=== PATIENT | male | born 1930 | race African-American/Black ===

== ENCOUNTER 2018-08-16 10:27 | Observation (INO) | payer MEDICARE, BC ==
[2018-08-16 12:11] LABS: #Eosinphils 0.6 thou/uL (0.0-0.7); #Lymphocytes 0.7 thou/uL (1.20-3.40); #Monocytes 0.7 thou/uL (0.11-0.59); %Basophils 0.3 % (0.0-1.0); %Eosinophils 8.4 % (0.0-10.0); %Lymphocytes 10.7 % (21.0-51.0); %Monocytes 9.6 % (0.0-10.0); %Neutrophils 71.1 % (42.0-75.0); Hemoglobin 6.8 g/dL (14.0-18.0); Mean Corpuscular Hemoglobin 31.7 pg (27.0-31.0); Mean Corpuscular Volume 96.1 fL (78.0-98.0); Mean Platelet Volume 8.2 fL (7.4-10.4); Platelet Count 329 thou/uL (130-400); RBC Distribution Width 14.5 % (11.5-14.5); Red Blood Cell (RBC) Count 2.15 mill/uL (4.70-6.10)
--- NOTE | 2018-08-16 12:16 | RAD ---
EXAM: CHEST ONE VIEW HISTORY: Clogged dialysis port. COMPARISON: 01/08/2008. FINDINGS: Cardiac silhouette is magnified by projection but does appear mildly enlarged. This is stable compare d to prior study. The pulmonary vasculature is within normal limits. Vascular calcifications are again seen in a tortuous and ectatic thoracic aorta. The lungs are clear. There is mild prominence of the right paratracheal soft tissues, this is a stable finding compared to study in 2007 and may be related to vascular structures. Degenerative changes are seen in the spine. 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 A vascular stent overlies the subcutaneous soft tissues medial left arm. IMPRESSION: No acute cardiopulmonary process.
[2018-08-16 12:47] LABS: PTT 35.8 SEC (22.9-36.1)
[2018-08-16 12:48] LABS: INR-International Normal Ratio 1.2; Prothrombin Time 15.7 SEC (12.0-14.7)
[2018-08-16 13:17] LABS: ALT (SGPT) 21 U/L (8-55); AST (SGOT) 22 U/L (5-34); Alkaline Phosphatase 67 U/L (40-150); Anion Gap 16 mmol/L (10-20); BUN (Urea Nitrogen) 62 mg/dL (8.4-25.7); Bilirubin, Total 0.4 mg/dL (0.2-1.2); Calc. Creatinine Clearance 0 mL/min (70-130); Calcium 8.8 mg/dL (7.8-10.44); Carbon Dioxide 23 mmol/L (23-31); Chloride 104 mmol/L (98-107); Estimated GFR-MDRD 7; Globulin 3.3 g/dL (2.4-3.5); Glucose 105 mg/dL (83-110); Potassium 4.4 mmol/L (3.5-5.1); Protein, Total 6.3 g/dL (5.8-8.1); Sodium 139 mmol/L (136-145)
--- NOTE | 2018-08-16 15:27 | HP ---
HISTORY OF PRESENT ILLNESS: Bebeto Wynn is an 87-year-old black male, who dialyzes Sunday, Sunday, and Sunday followed by Iker Hsieh, Nephrology has a left forearm dialysis graft placed 4 to 5 years ago in [place]. Apparently, he was referred to [place] for his dialysis access. Recently, he has had multiple interventions in the left forearm to try to salvage his left forearm looped graft, but a week ago they last intervened and now it is thrombosed and he reported for dialysis and was not able to dialyze today. Dr. Iker Hsieh sent him to the emergency room. The patient had a potassium 4.4 and sodium 139. Liver function tests were normal. Hemoglobin; however, is 6.8. He has been typed and crossed and transfusion necessary during dialysis. The patient ate a full breakfast at 8:30 this morning. Plan is to place a temporary dialysis catheter to allow dialysis and transfusion today. Next week, we will place a new cuffed tunneled hemodialysis catheter and establish a right arm fistula. He has a right wrist IV, which was removed after placement of his hemodialysis catheter. We will avoid IVs and blood draws from the right arm saving it for dialysis access. We will remove the sutures from interventional procedures left forearm access graft. The patient is anemic. He has had a previously performed laparoscopic right colon resection for cancer. He reports not having any followup. He is probably in need of a colonoscopy. He does not recall having a colonoscopy since his surgery in the late . ALLERGIES: NONE. SOCIAL HISTORY: Tobacco, none. Alcohol, none. The patient lives with a friend in [place]. PAST SURGICAL HISTORY: Right colon resection and left forearm dialysis access. 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 REVIEW OF SYSTEMS: Noncontributory. PHYSICAL EXAMINATION: VITAL SIGNS: Blood pressure 140/80, heart rate 76, and respiratory rate 18. HEAD, EARS, EYES, NOSE, AND THROAT: Unremarkable. LUNGS: Clear to auscultation. CARDIAC: Regular rate and rhythm without murmur or gallop. ABDOMEN: Soft and nontender. EXTREMITIES: Unremarkable. Palpable pulses IV right wrist, loop access graft left forearm thrombosed without thrill or bruit. Palpable radial pulses. Strong handgrip. LABORATORY DATA: Laboratories as noted. ASSESSMENT AND PLAN: 1. Thrombosed dialysis graft, left forearm, who had a full meal at 8 o'clock. We will plan placement of a right groin hemodialysis catheter during placement of the catheter. He was noted to have some obstruction on placement. I had to leave the catheter hanging out further than usual, but it seemed to function well. We will use this for temporary dialysis access. We plan placement of cuffed tunneled dialysis catheter prior right arm fistula. Ultrasound vein mapping right arm has been requested. 2. Anemia. No followup for right colon cancer. PLAN: 1. CT scan of the abdomen and pelvis especially in light of inability to pass the catheter into the inferior vena cava from the right femoral approach. 2. Suspect some kind of venous occlusion. He does not give a history of DVT. We will check a CEA level. 3. Anemia. Past history of right colon cancer. Consider a GI colonoscopy followup inpatient or outpatient. 4. Hypertension. Job ID: [id number]
--- NOTE | 2018-08-16 15:34 | ULT ---
Exam: Vein mapping for dialysis access HISTORY: End-stage renal disease. TECHNIQUE: Multiplanar grayscale and color Doppler images were obtained in a bilateral upper extremit y venous ultrasound. Spectral analysis of the Doppler waveforms of the vessels were performed. FINDINGS: The bowel internal jugular veins and subclavian veins are patent without evidence of thromb us. Right brachial artery 5.9 mm Right radial artery 3.5 mm Right ulnar artery 2.0 mm Left brachial artery 7.6 mm Left radial artery 3.0 mm Left ulnar artery 1.7 mm RIGHT CEPHALIC VEIN in millimeters 1.5 -- Shoulder 1.5 -- Upper arm 1.4 -- Mid upper arm 1.5 -- Just proximal to the elbow Thrombosed -- Just distal to the elbow Thrombosed -- Forearm Thrombosed -- Wrist RIGHT BASILIC VEIN in millimeters 3.2 -- Shoulder 3.3 -- Upper arm 2.5 -- Mid upper arm 2.0 -- Just proximal to the elbow 1.5 -- Just distal to the elbow 1.2 -- Forearm 1 -- Wrist There is a thrombosed left cephalic stent. Left basilic vein is not visualized. There is excluded loop graft from the left brachial artery to cephalic vein. IMPRESSION: 1. Vein mapping for dialysis access as above. 2. Occluded loop graft from the left brachial artery to the left cephalic vein with a thrombosed left cephalic venous stent.
[2018-08-16 15:35] LABS: HBSAg Index 0.55 S/CO (0-0.99); Hep B Surf Ag Non-Reactive S/CO (NonReactive)
[2018-08-16] MEDS ORDERED: Senokot S 8.6-50 MG TAB PO PRN (18:27)
[2018-08-16] MEDS ORDERED: Bisacodyl 10 MG SUPP PR PRN (18:27)
[2018-08-16] MEDS ORDERED: Acetaminophen 325 MG TAB PO PRN (18:27)
[2018-08-16] MEDS ORDERED: Calcium Carbonate 500 MG ChewTAB PO PRN (18:27)
[2018-08-16] MEDS ORDERED: hydrALAZINE 20 MG/ML VIAL SLOW IVP PRN (18:27)
--- NOTE | 2018-08-16 18:45 | HP ---
PRIMARY CARE PHYSICIAN: None. PRIMARY MANAGER OF COMPENSATION: Iker Hsieh MD CHIEF COMPLAINT: Dialysis catheter malfunction. HISTORY OF PRESENT ILLNESS: The patient is an 87-year-old male with end-stage renal disease, on hemodialysis, presented to the emergency room from the dialysis center with above complaints. The patient has a long history of end-stage renal disease, on dialysis. His usual dialysis on Sunday, Sunday, and Sunday. He had issues with dialysis earlier this week on Sunday and Sunday. He was seen by Dr. Carrillo as outpatient. Today, he had the same issue for which Dr. Iker Hsieh referred him to the emergency room. He also had discomfort over the fistula site. He denies any fever or chills. PAST MEDICAL HISTORY: 1. Hypertension. 2. End-stage renal disease, on hemodialysis. 3. Glaucoma. PAST SURGICAL HISTORY: 1. Left upper extremity dialysis access. 2. Right colon resection for colon cancer. ALLERGIES: NO KNOWN DRUG ALLERGIES. CURRENT HOME MEDICATIONS: The patient is unable to recall any of his home medications. SOCIAL HISTORY: The patient currently lives at home with his family. No smoking, alcohol, or drugs. FAMILY HISTORY: Negative for premature coronary artery disease. Surrogate decision maker; the patient makes his own decision with the help of his family. He is full code. REVIEW OF SYSTEMS: All other review of systems was reviewed and were found negative. PHYSICAL EXAMINATION: VITAL SIGNS: Temperature 98.2, respirations 18, pulse 72, blood pressure 102/66, and O2 saturation 98% on room air. GENERAL: An 87-year-old male, in no apparent distress, undergoing hemodialysis. HEENT: Head; atraumatic and normocephalic. Sclerae anicteric. Moist mucous membranes. No oral lesion. NECK: Supple. No JVD appreciated. No carotid bruit. LUNGS: Clear to auscultation bilaterally. No wheezing, rales, or rhonchi. HEART: S1 and S2 present. Regular rate and rhythm. No rubs or gallops appreciated. ABDOMEN: Soft, nontender. Bowel sounds present. EXTREMITIES: No edema or calf tenderness in lower extremity. There is palpable thrill over the left upper extremity dialysis access. NEUROLOGIC: Grossly nonfocal. Moves all 4 extremities. PSYCHIATRY: Alert, awake, and oriented x3. SKIN: Warm and dry. LYMPH NODES: No palpable lymph nodes in the neck. LABORATORY FINDINGS: Hemoglobin 6.8, hematocrit 20.7. PT 15.7, INR 1.2. BUN 62, creatinine 8.47, and potassium 4.4. Albumin 3.0. IMAGING STUDIES: Chest x-ray by my review was negative for infiltrate. EKG by my review showed sinus rhythm. IMPRESSION: 1. Dialysis access malfunction. 2. Anemia secondary to renal insufficiency. 3. Mild protein-calorie malnutrition. 4. End-stage renal disease, on hemodialysis. 5. Hypertension. PLAN: The patient will be monitored on the medical floor. He underwent dialysis catheter placement in this right groin today. He also received 2 units of PRBC with dialysis. He will undergo a cuffed dialysis catheter placement prior to right arm fistula. Ultrasound vein mapping of right arm has been done, report pending at this time. His CEA is in normal range. His anemia is probably secondary to renal insufficiency. He also has a CT scan of the abdomen and pelvis ordered due to inability to pass the catheter into the inferior vena cava from the right femoral approach. Home medications seems to be verified. The patient is unable to recall any of his home medications. Plan was discussed with the patient and the family at the bedside, they stated understanding. Job ID: [id number]
--- NOTE | 2018-08-16 19:13 | OP ---
DATE OF PROCEDURE: 08/16/2018 PREOPERATIVE DIAGNOSIS: Thrombosed access graft, left forearm. POSTOPERATIVE DIAGNOSIS: Thrombosed access graft, left forearm. PROCEDURE PERFORMED: Placement of right femoral vein hemodialysis catheter, Trialysis. Note: The vein would not thread in as far as usual and there seemed to be obstruction in the inferior vena cava. The patient has had a history of a right colon resection laparoscopically, that was performed many years ago, and reports not having any colonoscopic. Followup CAT scan has been ordered. ANESTHESIA: 1% Xylocaine. DESCRIPTION OF PROCEDURE: With the patient at bedside in the emergency room, right groin was clipped of hair, prepared with ChloraPrep, and draped in routine fashion. Local anesthetic 1% Xylocaine was infiltrated in the skin and subcutaneous tissue about the operative site. Trocar catheter cannulated in the femoral vein, J-wire threaded, trocar catheter removed. Skin entry site enlarged sharply. Dilator was placed and removed, and distal port of the Trialysis catheter was placed over the J-wire into the femoral vein. We would not thread as far as it should and about 6 cm was left hanging out and the catheter was secured with 2 interrupted sutures of 3-0 nylon, had good aspiration and flushed well. Sterile dressings were applied. Each port aspirated blood and flushed with heparinized saline solution. Sterile dressings applied. Job ID: [id number]
[2018-08-16 20:06] VITALS: BMI 21.4
[2018-08-17 05:44] LABS: #Basophils 0.1 thou/uL (0.0-0.2); #Eosinphils 0.5 thou/uL (0.0-0.7); #Lymphocytes 0.7 thou/uL (1.20-3.40); #Monocytes 0.6 thou/uL (0.11-0.59); #Neutrophils 4.2 thou/uL (1.40-6.50); %Basophils 1.2 % (0.0-1.0); %Eosinophils 8.5 % (0.0-10.0); %Lymphocytes 10.8 % (21.0-51.0); %Monocytes 10.3 % (0.0-10.0); %Neutrophils 69.2 % (42.0-75.0); Hemoglobin 8.3 g/dL (14.0-18.0); Mean Corpuscular HGB CONC 33.4 g/dL (32.0-36.0); Mean Corpuscular Hemoglobin 31.5 pg (27.0-31.0); Mean Corpuscular Volume 94.4 fL (78.0-98.0); Mean Platelet Volume 8.1 fL (7.4-10.4); Platelet Count 311 thou/uL (130-400); RBC Distribution Width 14.1 % (11.5-14.5); Red Blood Cell (RBC) Count 2.63 mill/uL (4.70-6.10); White Blood Cell (WBC) Count 6.1 thou/uL (4.8-10.8)
[2018-08-17] MEDS ORDERED: Prevnar 13-Val Conj/PF 0.5 ML SYRINGE IM ONE (09:00)
[2018-08-17] MEDS ORDERED: Heparin 1,000 UNITS/ML VIAL ONE ×2 (09:54→09:55)
[2018-08-17] MEDS ORDERED: CEFAZOLIN 2 GM in Premix Bag 1 BAG IVPB SCH (13:00)
--- NOTE | 2018-08-17 15:01 | CT ---
CT Abdomen Pelvis W Con History: [Colon cancer.] Comparison: Abdomen CT 2008 Findings: Calcified right infrahilar lymph nodes. Small pericardial fluid. Aortic contour is nonaneurysmal. Extensive diverticular disease throughout the sigmoid colon without active current inflammation. There is intrahepatic biliary dilatation. No significant extra hepatic biliary dilatation. Multiple calcific as well as the spleen. No retroperitoneal periaortic adenopathy. There is severe left hydroureteronephrosis. This is similar to the comparison examination. Moderate t o severe right-sided hydroureteronephrosis, also similar to the comparison examination. There is a right femoral venous catheter in place with reflux contrast within the femoral vein and ob turator vessels. This could reflect thrombus within the IVC although not visualized. Along the left gluteal fold is a peripherally enhancing soft tissue mass which may reflect abscess from fistula vers us sebaceous cyst. Large anterior osteophytes lumbar spine. No suspicious osteolytic or osteoblastic lesion. Impression: 1. Extensive intrahepatic biliary dilatation. ERCP recommended. 2. Severe bilateral hydroureteronephrosis similar to the comparison examination may be from ectopic i nsertion of the ureters. 3. Polycystic kidney disease. 4. Soft tissue peripheral enhancing mass on the left gluteal fold new from the comparison 2008 examin ation may reflect abscess from perirectal fistula versus complicated sebaceous cyst. Clinical correlation advised. 5. Reflux contrast on the right femoral venous catheter. Proximal IVC thrombosis is a possibility.
--- NOTE | 2018-08-17 15:28 | PDOC.PN ---
- Subjective Encounter Start Date: 08/17/18 (f/u ESRD) Encounter Start Time: 15:27 Subjective: pt without complaints. He did receive dialysis and 2 units prbc's. Denies -: any cp/n/v/abd pain or other concerns - Objective Resuscitation Status - Order Detail: 08/16/18 18:27 Resuscitation Status Routine Resuscitation Status: FULL: Full Resuscitation Vital Signs & Weight: Vital Signs (12 hours) Temp Pulse Resp BP Pulse Ox 08/17/18 07:40 98.4 F 73 20 129/74 96 08/17/18 04:00 98.5 F 69 20 121/65 98 Weight Weight 172 lb Result Diagrams: 08/17/18 05:30 08/16/18 12:07 Additional Labs: Accuchecks 08/17/18 11:32 POC Glucose 90 Phys Exam - Physical Examination Constitutional: NAD Respiratory: no wheezing, no rales, no rhonchi Cardiovascular: RRR, no significant murmur Gastrointestinal: soft, non-tender, positive bowel sounds Musculoskeletal: no edema Dx/Plan (1) ESRD (end stage renal disease) on dialysis Code(s): N18.6 - END STAGE RENAL DISEASE; Z99.2 - DEPENDENCE ON RENAL DIALYSIS Status: Chronic (2) Anemia Code(s): D64.9 - ANEMIA, UNSPECIFIED Status: Chronic Qualifiers: Chronic kidney disease stage: on chronic dialysis (3) Malnutrition Code(s): E46 - UNSPECIFIED PROTEIN-CALORIE MALNUTRITION Status: Chronic Qualifiers: Malnutrition type: protein-calorie malnutrition (4) Hypertension Code(s): I10 - ESSENTIAL (PRIMARY) HYPERTENSION Status: Chronic (5) Glaucoma Code(s): H40.9 - UNSPECIFIED GLAUCOMA Status: Acute Qualifiers: Glaucoma type: unspecified Laterality: bilateral Qualified Code(s): H40.9 - Unspecified glaucoma - Plan * ESRD on hemodialysis - appreciate Dr. Hudson consulting and management of the dialysis access malfunction. * Glaucoma - continue current eye drops * Home meds unknown and pt's pharmacy is closed - [facility] in [place] - will need a list. Pt reports he is only on a multivitamin and low dose aspirin. The goal is to confirm and his friend in the room does not know. * Abnormal CT scan -extensive intrahepatic biliary dilatation - consult to GI. * * dvt prophy - scd's * gi prophy - not indicated * code status - full * * Pt is currently on observation status - not safe for discharge to home, as he requires a more definitive dialysis catheter in addition to evaluation for the marked CT abnormality. * RN messaged that pt desires to establish a MPOA - Pall Care consult placed.
[2018-08-17] MEDS: Dorzolamide HCl 2% Ophth Soln 10 ml Bottle EA EYE SCH (20:16)
[2018-08-17] MEDS: Latanoprost 0.005% Ophth Soln 2.5 ml Bottle EA EYE SCH (20:16)
[2018-08-17] MEDS: Brimonidine Tartrate 0.2% Ophth Soln 5 ml Bottle EA EYE SCH (20:16)
--- NOTE | 2018-08-17 23:52 | CON ---
DATE OF CONSULTATION: 08/17/2018 REASON FOR CONSULTATION: Abnormal CT scan of the abdomen showing dilation of bile ducts. HISTORY OF PRESENT ILLNESS: Mr. Bebeto Wynn is an 87-year-old male with chronic kidney disease. He was hospitalized because of fistula failure and possibly having a revision of fistula or placing a tunneled-cuffed dialysis catheter. He was seen by Dr. Hudson and an attempt was made to place a catheter into the femoral artery, which was unsuccessful. encountered. Because of the above reasons, abdominal CAT scan was ordered. Abdominal CAT scan showed dilation of the intrahepatic ducts and also polycystic kidney. There is also mention of hydronephrosis on both sides. Interestingly, the patient has no specific GI symptoms. He has good appetite. No abdominal pain, no nausea, no vomiting. Also, liver function tests are not elevated. The patient has no prior history of liver disease. I reviewed the CAT scan with Dr. Loc Rand, radiologist. Again, the CAT scan findings shows dilation of intrahepatic ducts and mild dilation of the CBD. No pancreatic mass seen. The patient had a CAT scan, I believe in 2007 and there is some mention of mild dilation of the intrahepatic duct. However, the ducts looked normal, lot more prominent this time. The patient cannot tell me why it was done about 11 years ago. At the present time, he has no abdominal pain, he has good appetite, and is eating well. His bowel movements are regular. There is no specific GI symptoms except for the abnormal dilation of the biliary tree. PAST MEDICAL HISTORY: MEDICAL ILLNESSES: 1. Chronic kidney disease, on dialysis 3 times a week. 2. Polycystic kidneys. 3. Hypertension. 4. Glaucoma. SURGERIES: 1. AV fistula placement in the past. 2. Right colon resection for colon cancer. The patient apparently had seen Dr. Zeyad Yarbrough in April 2018 and had a negative colonoscopy except for 2 small polyps. He also had an EGD at that time. ALLERGIES: NONE. SOCIAL HISTORY: Does not smoke or drink alcohol. Lives with family. In fact, his son was in the room when I saw the patient. FAMILY HISTORY: No family history of cancer, premature coronary artery disease, or kidney disease. MEDICATIONS: List reviewed. REVIEW OF SYSTEMS: 10-point system reviewed. HEAD: No chronic headache. No dizziness. EYES: No impaired vision or diplopia. ENT: No relevant symptoms. NECK: No stiffness or pain. LUNGS: No chronic coughing, hemoptysis, or dyspnea. CARDIOVASCULAR SYSTEM: No chest pain. No dyspnea, orthopnea, or PND. GI: No abdominal pain, nausea, or vomiting. Bowel movements are regular. He had a recent colonoscopy, I believe in April [address] Yarbrough and had 2 polyps removed. GENITOURINARY: Not known. MUSCULOSKELETAL: Not known. NEUROENDOCRINE: Not known. PSYCHIATRY: Not known. PHYSICAL EXAMINATION: GENERAL: The patient appears very comfortable, in no distress. He is awake, alert, and communicative. He is a good historian. Repeated questioning failed to elicit any history of any abdominal pain, nausea, or vomiting. VITAL SIGNS: Stable. Afebrile. Pulse is 73 and blood pressure EYE: Conjunctivae clear. NECK: Supple. No adenitis or thyromegaly noted. CARDIOVASCULAR SYSTEM: First and second heart sounds heard. LUNGS: Clear to auscultation. ABDOMEN: Soft. Abdomen is not distended. Abdomen is nontender. No organomegaly or masses. EXTREMITIES: Reveal no edema. LABORATORY DATA: Showed anemia on admission for which he has been transfused. The CBC; WBC 7000, hemoglobin 6.8, hematocrit 20.7, platelet counts are 329,000, polys are 71, lymphocytes 10. Today, hemoglobin is 8.3, hematocrit 24.9. His serum chemistry shows normal LFTs completely. The bilirubin level is 0.4, AST 22, ALT 21, alkaline phosphatase 67, albumin 3. BUN is 62, creatinine is 8.47. He had abdominal CAT scan done which shows bilateral polycystic kidney and hydronephrosis. There is also dilation of the intrahepatic duct and slight dilation of the common bile duct. No pancreatic mass seen. He has had minimal findings of dilation of ducts in the report 11 years ago. CLINICAL IMPRESSION: 1. Abnormally dilated common bile duct and also intrahepatic. The intrahepatic appears more dilated. I feel this is a chronic finding and he has really no gastrointestinal symptoms at all. 2. Failed arteriovenous fistula, needs dialysis access. 3. Chronic kidney disease. 4. Hypertension. 5. Glaucoma. 6. History of previous colon cancer surgery with recent followup colonoscopy in April 2018. RECOMMENDATION: I would probably recommend either an MRCP and/or sonogram. If he has no symptoms and appears to be chronic findings, I will probably electively do further workup. In the meantime, his urgent problem seems to be lack of dialysis access, which needs to be addressed. He has been seen by Dr. Zeyad Yarbrough and I will ask the [facility] to assume care from Sunday. Job ID: [id number]
--- NOTE | 2018-08-18 07:10 | ULT ---
GALLBLADDER ULTRASOUND: Date: 08/18/18 INDICATION: Biliary ductal dilatation. Reference made to CT exam previous day. FINDINGS: There is evidence of intrahepatic biliary ductal dilatation, as well as hepatic cyst formation. Kimberley lithiasis is present without sonographic evidence of cholecystitis. Common duct measures 7 mm, which is within normal limits of size for patient's age. Incidental note of polycystic kidney of the right kidney. Barrios's sign reported as negative by practice performance manager. IMPRESSION: 1. Intrahepatic biliary ductal dilatation. There is cholelithiasis. As previously recommended, ERCP may be obtained to further characterize. 2. Polycystic kidney on the right. There is partial visualization of hydroureteronephrosis, as well. POS: IRAK
[2018-08-18] MEDS ORDERED: Ondansetron PF 4 MG/2 ML Vial IVP PRN (07:35)
[2018-08-18] MEDS ORDERED: Sodium Chloride 0.65% Nasal 44 ML BOT EA NARE PRN (07:35)
[2018-08-18] MEDS ORDERED: Loperamide HCl 2 MG CAP PO PRN (07:35)
[2018-08-18] MEDS ORDERED: HYDROcodone/Acetaminophen 5/325 mg Tablet PO PRN (07:35)
[2018-08-18] MEDS ORDERED: Zolpidem Tartrate 5 MG TAB PO PRN (07:35)
[2018-08-18] MEDS ORDERED: Diabetic Tussin 200 MG/10 ML UDCUP PO PRN (07:35)
[2018-08-18] MEDS ORDERED: Ondansetron ODT 4 MG TAB PO PRN (07:35)
[2018-08-18] MEDS ORDERED: Artificial Tears 18 DROP/0.9 ML EA EYE PRN (07:35)
[2018-08-18] MEDS ORDERED: Loratadine 10 MG TAB PO PRN (07:35)
[2018-08-18] MEDS ORDERED: Cepastat Lozenges 1 LOZ PO PRN (07:35)
[2018-08-18] MEDS: Dorzolamide HCl 2% Ophth Soln 10 ml Bottle EA EYE SCH ×2 (08:33→21:19)
[2018-08-18] MEDS: Folic Acid/Vit B Comp W-C PO SCH (08:35)
[2018-08-18] MEDS: Brimonidine Tartrate 0.2% Ophth Soln 5 ml Bottle EA EYE SCH ×2 (08:40→21:19)
--- NOTE | 2018-08-18 12:21 | PDOC.PN ---
- Subjective Encounter Start Date: 08/18/18 Encounter Start Time: 09:15 -: old records requested/rev Patient seen and examined. No new complaints. No overnight events - Objective Resuscitation Status - Order Detail: 08/16/18 18:27 Resuscitation Status Routine Resuscitation Status: FULL: Full Resuscitation MAR Reviewed: Yes Vital Signs & Weight: Vital Signs (12 hours) Temp Pulse Resp BP Pulse Ox 08/18/18 08:17 98.4 F 76 16 111/65 98 08/18/18 05:25 98.7 F 64 18 133/65 94 L Weight Weight 172 lb Result Diagrams: 08/17/18 05:30 08/16/18 12:07 Additional Labs: Accuchecks 08/17/18 08/17/18 20:44 16:21 POC Glucose 114 H 99 Phys Exam - Physical Examination Constitutional: NAD HEENT: PERRLA, moist MMs, sclera anicteric Neck: no JVD, supple Respiratory: no wheezing, no rales, no rhonchi Cardiovascular: RRR, no significant murmur, no rub Gastrointestinal: soft, non-tender, no distention, positive bowel sounds Musculoskeletal: no edema, pulses present thrombosed avf Neurological: non-focal, normal sensation, moves all 4 limbs femoral HD catheter+ Lymphatic: no nodes Psychiatric: normal affect, A&O x 3 Skin: no rash, normal turgor Dx/Plan (1) AV fistula thrombosis Code(s): T82.868A - THROMBOSIS DUE TO VASCULAR PROSTH DEV/GRFT, INIT Status: Acute (2) Anemia of renal disease Code(s): N18.9 - CHRONIC KIDNEY DISEASE, UNSPECIFIED; D63.1 - ANEMIA IN CHRONIC KIDNEY DISEASE Status: Chronic (3) Cholelithiases Code(s): K80.20 - CALCULUS OF GALLBLADDER W/O CHOLECYSTITIS W/O OBSTRUCTION Status: Chronic (4) ESRD (end stage renal disease) on dialysis Code(s): N18.6 - END STAGE RENAL DISEASE; Z99.2 - DEPENDENCE ON RENAL DIALYSIS Status: Chronic (5) Glaucoma Code(s): H40.9 - UNSPECIFIED GLAUCOMA Status: Chronic Qualifiers: Glaucoma type: unspecified Laterality: bilateral Qualified Code(s): H40.9 - Unspecified glaucoma (6) Hydronephrosis Code(s): N13.30 - UNSPECIFIED HYDRONEPHROSIS Status: Chronic (7) Hypertension Code(s): I10 - ESSENTIAL (PRIMARY) HYPERTENSION Status: Chronic (8) Intrahepatic bile duct dilation Code(s): K83.8 - OTHER SPECIFIED DISEASES OF BILIARY TRACT Status: Chronic - Plan cont current plan of care, plan discussed w/ family * continue HD as per nephrology * updated plan to family * medication reviewed as below * symptomatic treatment * add nephrovite * pt will need permanant HD access. Review of Systems - Review of Systems ENT: negative: Ear Pain, Ear Discharge, Nose Pain, Nose Discharge, Nose Congestion, Mouth Pain, Mouth Swelling, Throat Pain, Throat Swelling, Other Respiratory: negative: Cough, Dry, Shortness of Breath, Hemoptysis, SOB with Excertion, Pleuritic Pain, Sputum, Wheezing Cardiovascular: negative: chest pain, palpitations, orthopnea, paroxysmal nocturnal dyspnea, edema, light headedness, other Gastrointestinal: negative: Nausea, Vomiting, Abdominal Pain, Diarrhea, Constipation, Melena, Hematochezia, Other Genitourinary: negative: Dysuria, Frequency, Incontinence, Hematuria, Retention , Other Musculoskeletal: negative: Neck Pain, Shoulder Pain, Arm Pain, Back Pain, Hand Pain, Leg Pain, Foot Pain, Other - Medications/Allergies Allergies/Adverse Reactions: Allergies Allergy/AdvReac Type Severity Reaction Status Date / Time No Known Drug Allergies Allergy Verified 08/16/18 19:31 Medications: Current Medications Acetaminophen (Tylenol) 650 mg PO Q4H PRN PRN Reason: Headache/Fever/Mild Pain (1-3) Hydrocodone Bitart/Acetaminophen ([place] 5/325) 1 tab PO Q4H PRN PRN Reason: Moderate Pain (4-6) Artificial Tears (Tears Naturale) 2 drop EA EYE PRN PRN PRN Reason: Dry Eyes Bisacodyl (Dulcolax) 10 mg MA DAILYPRN PRN PRN Reason: Constipation Brimonidine Tartrate (Alphagan 0.2% Ophth Soln) 0 drop EA EYE BID [facility] Last Admin: 08/18/18 08:40 Dose: 1 drop Calcium Carbonate (Tums) 1,000 mg PO Q4H PRN PRN Reason: Heartburn or Indigestion Dorzolamide HCl (Trusopt 2% Ophth Soln) 0 drop EA EYE BID [facility] Last Admin: 08/18/18 08:33 Dose: 1 drop Guaifenesin (Robitussin Sf) 200 mg PO Q4H PRN PRN Reason: Cough Hydralazine HCl (Apresoline) 10 mg SLOW IVP Q4H PRN PRN Reason: SBP Greater Than 180 Cefazolin Sodium/Dextrose 2 gm (/ Device) 50 mls @ 100 mls/hr IVPB ONCALL-OR KAITY Latanoprost (Xalatan 0.005% Ophth Soln) 0 drop EA EYE HS [facility] Last Admin: 08/17/18 20:16 Dose: Not Given Loperamide HCl (Imodium) 2 mg PO PRN PRN PRN Reason: Diarrhea/Loose Stools Loratadine (Claritin) 10 mg PO DAILYPRN PRN PRN Reason: Sinus Symptoms Ondansetron HCl (Zofran Odt) 4 mg PO Q6H PRN PRN Reason: Nausea/Vomiting Ondansetron HCl (Zofran) 4 mg IVP Q6H PRN PRN Reason: Nausea/Vomiting Senna/Docusate Sodium (Senokot S) 2 tab PO BID PRN PRN Reason: Constipation Sodium Chloride (Flush - Normal Saline) 10 ml IVF PRN PRN PRN Reason: Saline Flush Sodium Chloride ([place] Nasal [place] 0.65%) 0 ml EA NARE QIDPRN PRN PRN Reason: Nasal Congestion Throat Lozenges (Cepastat Lozenges) 1 karthik PO Q2H PRN PRN Reason: Sore Throat Vitamin B Complex/Vit C/Folic Acid (Nephro-Reese Tablet) 1 tab PO DAILY [facility] Last Admin: 08/18/18 08:35 Dose: 1 tab Zolpidem Tartrate (Ambien) 5 mg PO HSPRN PRN PRN Reason: Insomnia
[2018-08-18] MEDS ORDERED: Heparin 10,000 UNITS/ 10 ML VIAL ONE (15:00)
[2018-08-18] MEDS ORDERED: Vancomycin HCl 1 GM in Premix Bag 1 BAG IVPB SCH (15:30)
--- NOTE | 2018-08-18 15:48 | PRG ---
DATE OF SERVICE: 08/18/2018 SUBJECTIVE: Mr. Wynn is doing well today. He is afebrile. He has a temporary dialysis catheter. He has had mild dilatation of the intrahepatic ducts on CAT scan, this was seen on this CAT scan. Liver function tests are normal. Abdominal ultrasound was ordered, revealing polycystic kidney on the right. The patient does have cholelithiasis. Common duct is 7 mm, within normal range. The patient is asymptomatic from a biliary standpoint. Ultrasound vein mapping was obtained on 08/16/2018, revealing poor veins on the right, making it very likely that he will need a prosthetic graft, but we will plan exploration of the right arm and placement of a prosthetic graft if necessary as well as placement of hemodialysis catheter and as well as excising left. He understands risks and benefits, consents. Job ID: [id number]
[2018-08-18] MEDS: Latanoprost 0.005% Ophth Soln 2.5 ml Bottle EA EYE SCH (21:19)
[2018-08-19 04:28] LABS: #Eosinphils 0.4 thou/uL (0.0-0.7); #Lymphocytes 0.6 thou/uL (1.20-3.40); #Monocytes 0.7 thou/uL (0.11-0.59); #Neutrophils 4.1 thou/uL (1.40-6.50); %Basophils 0.8 % (0.0-1.0); %Lymphocytes 10.6 % (21.0-51.0); %Monocytes 11.3 % (0.0-10.0); %Neutrophils 70.3 % (42.0-75.0); Hemoglobin 8.3 g/dL (14.0-18.0); Mean Corpuscular HGB CONC 33.2 g/dL (32.0-36.0); Mean Corpuscular Hemoglobin 31.7 pg (27.0-31.0); Mean Corpuscular Volume 95.5 fL (78.0-98.0); Platelet Count 311 thou/uL (130-400); RBC Distribution Width 14.3 % (11.5-14.5); Red Blood Cell (RBC) Count 2.62 mill/uL (4.70-6.10); White Blood Cell (WBC) Count 5.9 thou/uL (4.8-10.8)
[2018-08-19 04:48] LABS: Anion Gap 14 mmol/L (10-20); BUN (Urea Nitrogen) 39 mg/dL (8.4-25.7); Calc. Creatinine Clearance 10 mL/min (70-130); Calcium 8.7 mg/dL (7.8-10.44); Carbon Dioxide 27 mmol/L (23-31); Chloride 102 mmol/L (98-107); Estimated GFR-MDRD 11; Glucose 97 mg/dL (83-110); Phosphorus 3.3 mg/dL (2.3-4.7); Potassium 3.7 mmol/L (3.5-5.1); Sodium 139 mmol/L (136-145)
[2018-08-19] MEDS ORDERED: EPOETIN ALFA-EPBX (ESRD) 3,000 UNIT/ML VIAL SC SCH (09:00)
[2018-08-19] MEDS: Brimonidine Tartrate 0.2% Ophth Soln 5 ml Bottle EA EYE SCH ×2 (09:50→21:43)
[2018-08-19] MEDS: Dorzolamide HCl 2% Ophth Soln 10 ml Bottle EA EYE SCH ×2 (09:52→21:42)
[2018-08-19] MEDS: Folic Acid/Vit B Comp W-C PO SCH (09:53)
--- NOTE | 2018-08-19 11:21 | PRG ---
DATE OF SERVICE: 08/19/2018 REASON FOR CONSULTATION: Abnormal CT scan of the abdomen showing dilation of the bile duct. SUBJECTIVE: The patient did well overnight with no acute events or problems. Today, he states that he is doing well and is on tap for revision of his arteriovenous fistula of the upper extremity. Currently, he denies any nausea, vomiting, fevers, chills, abdominal pain, or GI bleeding. OBJECTIVE: VITAL SIGNS: Temperature 98.7, pulse 65, blood pressure 93/56, respiratory rate 20, saturating 98% on room air. GENERAL: The patient is lying in bed, in no acute distress. Alert and oriented x4. CARDIOVASCULAR: Regular rate and rhythm. RESPIRATORY: Clear to auscultation bilaterally. ABDOMEN: Normoactive bowel sounds. Soft, nontender, nondistended. EXTREMITIES: No cyanosis, clubbing, or edema. LABORATORY DATA: CBC with a white blood cell count of 5.9, hemoglobin 8.3, hematocrit 25.1, platelets 311. INR 1.2. Chemistry with a sodium of 139, potassium 3.7, chloride 102, CO2 of 27, BUN 39, creatinine 6.07, glucose 97, AST 22, ALT 21, alkaline phosphatase 67, total bilirubin 0.4. CEA 1.34. IMAGING DATA: Right upper quadrant ultrasound was obtained on August 18, 2018 that showed common bile duct mildly dilated at 7 mm as well as significant intrahepatic ductal dilatation with possible cystic dilation of the intrahepatic tree. There was also a number of hepatic cysts within the liver primarily around the biliary tree itself, but did have 1 or 2 parenchymal cysts as well. ASSESSMENT AND PLAN: The patient is an 88-year-old male with past medical history of glaucoma, hypertension, polycystic kidney disease, and chronic kidney disease/end-stage renal disease on hemodialysis presenting with malfunctioning dialysis access and abnormal imaging of the biliary system. Abnormal imaging of the biliary system. The patient was initially admitted to the hospital for malfunctioning dialysis access and he is currently undergoing evaluation for revision. However, during this admission, secondary to placement of a temporary catheter in the femoral artery, he was noted to have cystic dilation of the intrahepatic tree as well as mild dilation of the common bile duct to 7 mm in size on CT. In comparison with the CT scan from 2008, this appears to be a relatively new finding with no evidence of abnormalities within the biliary tree noted on the prior CT scan in 2008. At this point, the differential could include polycystic kidney disease, primary sclerosing cholangitis, primary biliary cholangitis (possible overlap syndrome), autoimmune pancreatitis with cyst formation and/or IgG4 disease, or cholangiocarcinoma ( much less likely given normal alkaline phosphatase). With his relatively normal liver enzymes and asymptomatic nature at this time, these cystic dilations of the biliary tree maybe more related to his adult polycystic kidney disease with hepatic cysts common in this particular condition, although with APCKD it does not necessarily affect the biliary tree. In any case, this seems to be an incidental finding that may need surveillance. RECOMMENDATIONS: 1. Would obtain both antimitochondrial antibody and IgG subtype 4 for a possible primary biliary cholangitis and autoimmune pancreatitis respectively. 2. Would continue to trend his LFTs while inpatient. 3. After discussion with the patient and family at bedside, I would recommend repeat imaging of the liver in 3 months with MRCP, and if showing worsening findings and/or more significant dilatation, would proceed with either liver biopsy or ERCP at that time. 4. Given the largely incidental finding on this admission and no plans for endoscopy at this time, the patient can be discharged from a GI standpoint with followup in the GI Clinic in 1 to 2 months or sooner if displaying symptoms. Please call with any additional questions. Job ID: [id number] KENDRICK
[2018-08-19] MEDS ORDERED: Glycopyrrolate 0.2 MG/ML 5 ML SYRINGE ONE (11:49)
[2018-08-19] MEDS ORDERED: Ondansetron PF 4 MG/2 ML Vial ONE (11:49)
[2018-08-19] MEDS ORDERED: Rocuronium Bromide 10 MG/ML (10ML VIAL) ONE (11:49)
[2018-08-19] MEDS ORDERED: Lidocaine 2% PF 5 ML VIAL ONE ×2 (11:49→16:26)
[2018-08-19] MEDS ORDERED: Phenylephrine HCL 10 MG/ML VIAL ONE (11:49)
[2018-08-19] MEDS ORDERED: Fentanyl 100 MCG/2 ML VIAL ONE (15:42)
[2018-08-19] MEDS ORDERED: Bupivacaine 0.25% HCL 30 ML VIAL ONE (15:48)
[2018-08-19] MEDS ORDERED: Bupivacaine HCl 0.5%/Epinephrine 1:200,000/PF 30 ml Vial ONE (15:49)
[2018-08-19] MEDS ORDERED: Heparin 10,000 UNITS/1 ML VIAL ONE (16:26)
[2018-08-19] MEDS ORDERED: Sodium Chloride 0.9% 20 ML ONE (16:32)
[2018-08-19] MEDS ORDERED: Sodium Chloride For Inhalation 0.9% 3 ML NEB ONE ×2 (17:46→17:54)
[2018-08-19] MEDS ORDERED: Dexamethasone 4 mg/ml Vial ONE (17:57)
[2018-08-19] MEDS ORDERED: Ondansetron HCl/PF 4 MG/2 ML Vial IVP PRN (18:02)
[2018-08-19] MEDS ORDERED: Promethazine HCl 25 MG/ML VIAL IM PRN (18:02)
--- NOTE | 2018-08-19 18:23 | RAD ---
EXAM: Single view of the chest HISTORY: Status post central line placement COMPARISON: 08/16/2018 FINDINGS: Single view of the chest shows a normal sized cardiomediastinal silhouette. A left IJ dial ysis catheter seen with its tip in the superior vena cava. No pneumothorax is seen. There is no evidence of consolidation, mass, or pleural effusion. A stent is seen in the patient's left arm. IMPRESSION: Status post central line placement without evidence of complication.
[2018-08-19] MEDS: Latanoprost 0.005% Ophth Soln 2.5 ml Bottle EA EYE SCH (21:43)
--- NOTE | 2018-08-19 22:50 | OP ---
DATE OF PROCEDURE: 08/19/2018 PREOPERATIVE DIAGNOSES: Thrombosed left forearm loop graft with stents, multiple, left upper arm and left buttock sebaceous cyst, occluded outflow, right internal jugular vein, poor veins of venous ultrasound, right arm. PROCEDURES PERFORMED: Left IJ cuffed tunneled hemodialysis catheter, AngioDynamics, pre-curved, fluoroscopy and ultrasound used for placement. Excision of left buttock sebaceous cyst, 5 cm incision, layered closure. ANESTHESIA: General anesthesia, local 0.5% Marcaine with epinephrine 30 mL mixed with 2% Xylocaine 10 mL, total volume used. Note in the future outpatient surgery, the patient is planned to have a right arm fistula or dialysis graft. DESCRIPTION OF PROCEDURE: The patient was taken to the operating room where under general anesthesia, left neck and chest were prepared with ChloraPrep and draped in routine fashion. Local anesthetic was infiltrated in the skin and subcutaneous tissue about the operative sites. The ultrasound guidance was used to cannulate the right internal jugular vein. The J-wire would not thread out the IJ outflow via the scar over his chest, suggestive of a previous dialysis catheter. Ultrasound guidance was used to cannulate the left internal jugular vein and J-wire threaded, trocar catheter removed. Skin entry site was enlarged sharply. Stab incision was made over the left chest at the planned exit site and using the pre-curved AngioDynamics cuffed-tunneled hemodialysis catheter pre curved. The tunneling device was used to tunnel this from the exit site to the neck incision, placing the fabric cuff beneath the skin exit site, securing the catheter with 2 interrupted suture of 3-0 nylon and sterile dressings applied. Small and medium size dilators were placed over the J-wire into the internal jugular vein and removed. Dilator and Peel-Away sheath were placed over the J-wire into the superior vena cava under fluoroscopic visualization, removing the J-wire and dilator, and catheter was placed with the Peel-Away sheath and yasmin sheath was removed. Fluoroscopic images revealed good line placement. Platysma was approximated with 4-0 Monocryl, skin with subdermal 4-0 Monocryl and hemodialysis catheter aspirated blood from each port and flushed with heparinized saline solution, 1000 units heparin per mL indicating volume of the port. The patient was then placed in the left lateral decubitus position on tenorio bag, properly padded in position. An incision was made over the left to midline buttock, carried down through the skin and subcutaneous tissue for a 5-cm incision, excising a large sebaceous cyst. This was excised, submitted to Pathology. Hemostasis was gained with cautery. Wound anesthetized with local anesthetic. Subcutaneous tissue was approximated with 3-0 Monocryl, skin with subdermal 4-0 Monocryl and [place] glue applied. Job ID: [id number]
--- NOTE | 2018-08-20 07:50 | PDOC.PN ---
- Subjective Encounter Start Date: 08/19/18 Encounter Start Time: 19:05 Subjective: Patient states he is feeling well but very hungry. -: Denies any pain at present. No sob. Overall feels well. Just returned from surgery. In addition to catheter placement he had left buttock sebaceous cyst excision by Dr. Hudson. I received a call from Dr. Hudson stating patient was cleared from surgical standpoint for discharge home. Due to dialysis on Sunday. Post-operatively, on extubation patient reportedly had spasming requiring Epi and prolonged observation. He is doing well at present. - Objective Resuscitation Status - Order Detail: 08/16/18 18:27 Resuscitation Status Routine Resuscitation Status: FULL: Full Resuscitation Vital Signs & Weight: Vital Signs (12 hours) Temp Pulse Resp BP BP Pulse Ox 08/20/18 07:39 97.6 F 88 22 H 97/62 98 08/20/18 04:21 98.6 F 76 16 93/52 L 96 08/20/18 00:58 98.8 F 68 91/55 L 100 08/20/18 00:28 71 102/60 100 08/20/18 00:16 99.1 F 71 16 94/56 L 100 08/19/18 23:58 75 93/56 L 100 08/19/18 22:58 77 91/58 L 95 08/19/18 21:28 86 101/66 98 08/19/18 20:28 89 101/57 L 92 L 08/19/18 20:00 99.0 F 85 92/57 L 96 08/19/18 19:58 98.6 F 90 92/53 L 08/19/18 19:48 99.0 F 82 14 92/57 L 98 Weight Weight 172 lb I&O: 08/19/18 08/20/18 08/21/18 06:59 06:59 06:59 Intake Total 750 Balance 750 Result Diagrams: 08/19/18 03:45 08/19/18 03:45 Phys Exam - Physical Examination Constitutional: NAD HEENT: PERRLA, moist MMs, oral pharynx no lesions Neck: supple, full ROM Respiratory: clear to auscultation bilateral Cardiovascular: RRR Gastrointestinal: soft, non-tender, no distention, positive bowel sounds Musculoskeletal: no edema Neurological: normal sensation, moves all 4 limbs Psychiatric: normal affect, A&O x 3 Dx/Plan (1) AV fistula thrombosis Code(s): T82.868A - THROMBOSIS DUE TO VASCULAR PROSTH DEV/GRFT, INIT Status: Acute (2) ESRD (end stage renal disease) on dialysis Code(s): N18.6 - END STAGE RENAL DISEASE; Z99.2 - DEPENDENCE ON RENAL DIALYSIS Status: Chronic (3) Hypertension Code(s): I10 - ESSENTIAL (PRIMARY) HYPERTENSION Status: Chronic - Plan cont current plan of care Patient for possible discharge in the AM. * .
[2018-08-20] MEDS: Dorzolamide HCl 2% Ophth Soln 10 ml Bottle EA EYE SCH (08:35)
[2018-08-20] MEDS: Folic Acid/Vit B Comp W-C PO SCH (08:36)
[2018-08-20] MEDS: Brimonidine Tartrate 0.2% Ophth Soln 5 ml Bottle EA EYE SCH (08:42)
[2018-08-20 11:39] VITALS: BP 97/59; TEMP 98
--- NOTE | 2018-08-20 17:40 | DIS ---
DATE OF ADMISSION: 08/16/2018 DATE OF DISCHARGE: 08/20/2018 CONSULTING PHYSICIANS: 1. Dr. Hudson, General Surgery. 2. Dr. Bass, Gastroenterology. 3. Dr. Hsieh, Nephrology. DISCHARGE DIAGNOSES: 1. Thrombosed left forearm loop graft with stents. 2. Multiple left upper arm and left buttock sebaceous cysts. 3. Occluded outflow, right internal jugular vein. 4. Status post excision of left buttock sebaceous cyst. 5. Central line placement with planned future outpatient surgery for a right arm fistula or dialysis graft. 6. Abnormally dilated common bile duct and also intrahepatic duct, found incidentally on CT imaging. 7. Chronic kidney disease, on dialysis. 8. Hypertension. 9. Glaucoma. HOSPITAL COURSE: Mr. Wynn is an 88-year-old man, who presented due to unsuccessful attempt of dialysis secondary to failed AV fistula. The patient was seen by Dr. Hudson for attempt of placing a catheter into the femoral artery, however, that was unsuccessful. CT imaging was obtained, which demonstrated dilation of the intrahepatic ducts and also polycystic kidney disease. For that reason, Gastroenterology was consulted. 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 He was advised ERCP or liver biopsy to be done as an outpatient. He had no symptoms associated with these incidental findings. With regard to the AV fistula, he was taken to surgery by Dr. Hudson and underwent a central line placement with plans to see him as an outpatient for right arm fistula or dialysis graft. The patient was cleared from surgical standpoint, and additionally, did undergo excision of a left buttock sebaceous cyst. The patient did have some spasming following extubation after his surgery with no further complications, but was kept overnight for monitoring. This morning, he is feeling well and without complaints. The patient is very eager for discharge home and has been cleared from medical standpoint. REVIEW OF SYSTEMS: The patient denies having any fevers, chills, or sweats. Denies any nausea or vomiting. No chest pain, palpitations, shortness of breath. No abdominal pain. Tolerating a regular diet since yesterday after undergoing surgery. Denies having any bowel changes or urinary symptoms. All other review of systems negative. PHYSICAL EXAMINATION: GENERAL: The patient appears very thin and well developed, in no acute distress. VITAL SIGNS: Temperature 98, pulse 50, respirations 20, O2 saturation 100% on room air, and blood pressure 97/59. HEENT: Normocephalic and atraumatic. Pupils are equal, round, and reactive to light. Sclerae anicteric. Oropharynx is clear. NECK: Supple. LUNGS: Clear to auscultation bilaterally. CARDIAC: Regular rate and rhythm. ABDOMEN: Soft, nontender, nondistended. Normoactive bowel sounds present. EXTREMITIES: No clubbing or edema. NEUROLOGIC: Alert and oriented x3. SKIN: Notable for multiple sebaceous cysts none with any evidence of underlying infection. LABORATORY DATA: White blood count 5.9, hemoglobin 8.3, hematocrit 25.1, and platelets 311. Sodium 139, potassium 3.7, BUN 39, creatinine 6.07, GFR 11, glucose 97, calcium 9.7. PTH 22.1. IMAGING DATA: 1. Chest x-ray, 08/16/2018. No acute cardiopulmonary process. 2. Vessel mapping, August 16, 2018. Occluded loop graft from the left brachial artery to the left cephalic vein with a thrombosed left cephalic venous stent. 3. CT of abdomen and pelvis, 08/17/2018. Extensive intrahepatic biliary dilation. Severe bilateral hydroureteronephrosis similar to the comparison examination, which could be from ectopic insertion of the ureters. 4. Polycystic kidney disease. 5. Soft tissue peripheral enhancing mass on the left gluteal fold, new from previous study in 2008. Could be a complicated sebaceous cyst versus abscess. 6. Reflux of contrast in the right femoral venous catheter. 7. Abdominal ultrasound, August 18, 2018. Intrahepatic biliary ductal dilation. Cholelithiasis. Polycystic kidney disease on the right. Partial visualization of hydroureteronephrosis. 8. Chest x-ray, August 19, 2018. Status post central line placement without evidence of complications. PROCEDURES: 1. On August 16, 2018, placement of right femoral vein hemodialysis catheter, Trialysis. Vein would not thread as far as usual due to what seemed to be obstruction in the inferior vena cava. The patient with history of right colon resection laparoscopically. 2. Central line placement. 3. Excisional of left buttocks sebaceous cyst, 5 cm. CONDITION AT DISCHARGE: Stable. ACTIVITY: As tolerated. DIET: Heart healthy/renal diet. DISCHARGE MEDICATIONS: None. FOLLOWUP: 1. The patient was advised to follow up with his primary care physician within 1 week. 2. Scheduled to undergo surgery on Sunday, September 10, 2018, and advised to remain n.p.o. beginning midnight, September 09, 2018. 3. Advised to continue with nephrology followup for dialysis as scheduled. 4. Follow up with KD Reyes in 1 to 2 months for further workup including possible liver biopsy versus ERCP as recommended. DISPOSITION: The patient is medically cleared for discharge home on August 20, 2018. The patient's case was discussed with Dr. Dennis, who agrees with plan of care as described above. Job ID: [id number]
--- NOTE | 2018-08-23 05:45 | PQF ---
[facility] POST DISCHARGE CLINICAL DOCUMENTATION IMPROVEMENT CLARIFICATION FORM y Todays Date: 08/22/18 y Patients Name SONJA MCINTOSH JR. y y y Admit Date 08/16/18 y Disch Date 08/20/18 Saw Sharpener Name Luca French Jr. Email: [email or web address]: [phone] To be completed by Saw Sharpener: Present Clinical Indicators - Signs / Symptoms Results and Location in Medical Record [ ] Documentation of: [ ] [ ] Documentation of: [ ] [ ] Documentation of: [ ] [ ] Documentation of: [ ] [ ] Risks [ ] [ ] [ ] Treatment [ ] Sebaceous cyst Query for size and margins of excised lesion [ ] [ ] To be completed by Physician: SOPHIE PROCTOR The documentation in this patients record requires clarification to ensure coding compliance and accuracy. Check the appropriate box and include in your discharge summary. [ ] [ ] [ ] [ ] Please check this box if this does not apply to this patient [ ] Unable to determine [ ] Other diagnosis: Review the following information and exercise your independent professional judgment in responding to the clarification. Based upon the clinical findings, risk factors, and treatment, please clarify if you are treating one of the above probable or suspected diagnoses. Physician Signature: Date Time JAMAD
--- NOTE | 2018-08-24 11:51 | EKG ---
Test Reason : Blood Pressure : / mmHG Vent. Rate : 068 BPM Atrial Rate : 068 BPM P-R Int : 162 ms QRS Dur : 086 ms QT Int : 430 ms P-R-T Axes : 097 007 036 degrees QTc Int : 457 ms Normal sinus rhythm Normal ECG Confirmed by AVINASH MARTINEZ DO ([id number]), food editor NUHA SCHNEIDER ([id number]) on 08/24/2018 11:50:55 AM Referred By: Confirmed By:AVINASH MARTINEZ DO
== END 2018-08-20 14:55 | disposition home or self-care (01) ==
LOC: ERS 10:27 → T4-A 12:05
PROVIDERS: ADMIT Internal Medicine; ATTEND Internal Medicine
PROC: 0JQ90ZZ Repair Buttock Subcutaneous Tissue and Fascia, Open Approach (ICD-10-PCS; principal; 2018-08-16)
PROC: 0HB8XZZ Excision of Buttock Skin, External Approach (ICD-10-PCS; 2018-08-16)
PROC: 02HV33Z Insertion of Infusion Device into Superior Vena Cava, Percutaneous Approach (ICD-10-PCS; 2018-08-16)
DX: T82.868A Thrombosis due to vascular prosthetic devices, implants and grafts, initial encounter (principal); L72.3 Sebaceous cyst; T82.49XA Other complication of vascular dialysis catheter, initial encounter; I12.0 Hypertensive chronic kidney disease with stage 5 chronic kidney disease or end stage renal disease; N18.6 End stage renal disease; D63.1 Anemia in chronic kidney disease; H40.9 Unspecified glaucoma; K83.8 Other specified diseases of biliary tract; K80.20 Calculus of gallbladder without cholecystitis without obstruction; E44.1 Mild protein-calorie malnutrition; N13.30 Unspecified hydronephrosis; Q61.3 Polycystic kidney, unspecified; Z99.2 Dependence on renal dialysis; Z98.890 Other specified postprocedural states; Z79.899 Other long term (current) drug therapy
CPT/HCPCS: 11400; 12032; 36430; 36556; 36558; 71045 ×2; 74177; 76000; 76705; 80048; 80053; 82378; 82962; 83970; 84100; 85025 ×3; 85610; 85730; 86850; 86900; 86901; 86920; 87340; 88304; 93005; 96372; 97139 ×3; 99285; C1752 ×2; C1769; G0365; G0378 ×3; P9016; Q5105; 36415; 36416; 90471; 90670; 90935; 93970; G0009; G0257; J0670; J0690; J1100; J1642; J1644; J2001; J2370; J2405; J3010; S0020

== ENCOUNTER 2018-08-31 07:32 | Observation (INO) | payer MEDICARE, BC ==
[2018-08-31 08:12] LABS: #Basophils 0.1 thou/uL (0.0-0.2); #Eosinphils 0.6 thou/uL (0.0-0.7); #Lymphocytes 0.9 thou/uL (1.20-3.40); #Monocytes 0.7 thou/uL (0.11-0.59); #Neutrophils 5.2 thou/uL (1.40-6.50); %Basophils 0.9 % (0.0-1.0); %Eosinophils 8.5 % (0.0-10.0); %Lymphocytes 12.1 % (21.0-51.0); %Monocytes 8.6 % (0.0-10.0); %Neutrophils 69.9 % (42.0-75.0); Hemoglobin 6.5 g/dL (14.0-18.0); Mean Platelet Volume 8.1 fL (7.4-10.4); Platelet Count 348 thou/uL (130-400); RBC Distribution Width 16.1 % (11.5-14.5); Red Blood Cell (RBC) Count 2.03 mill/uL (4.70-6.10); White Blood Cell (WBC) Count 7.5 thou/uL (4.8-10.8)
[2018-08-31 08:17] LABS: INR-International Normal Ratio 1.1; PTT 48.4 SEC (22.9-36.1); Prothrombin Time 14.6 SEC (12.0-14.7)
[2018-08-31 08:26] LABS: ALT (SGPT) 7 U/L (8-55); AST (SGOT) 19 U/L (5-34); Alkaline Phosphatase 69 U/L (40-150); Anion Gap 15 mmol/L (10-20); BUN (Urea Nitrogen) 22 mg/dL (8.4-25.7); Bilirubin, Total 0.3 mg/dL (0.2-1.2); Calc. Creatinine Clearance 0 mL/min (70-130); Calcium 8.1 mg/dL (7.8-10.44); Carbon Dioxide 28 mmol/L (23-31); Chloride 94 mmol/L (98-107); Estimated GFR-MDRD 15; Globulin 2.9 g/dL (2.4-3.5); Glucose 94 mg/dL (83-110); Potassium 3.4 mmol/L (3.5-5.1); Protein, Total 5.9 g/dL (5.8-8.1); Sodium 134 mmol/L (136-145)
[2018-08-31 11:07] VITALS: BMI 20.9
[2018-08-31 16:38] LABS: Hemoglobin 8.1 g/dL (14.0-18.0)
[2018-08-31] MEDS ORDERED: Senokot S 8.6-50 MG TAB PO PRN (16:52)
--- NOTE | 2018-08-31 18:38 | HP ---
PRIMARY CARE PHYSICIAN: None. CORK SLABS SAWYER: Dr. Hsieh. CHIEF COMPLAINT: Anemia. HISTORY OF PRESENT ILLNESS: Mr. Wynn is an 88-year-old male, who presented to the emergency room today for anemia. The patient's PCP/wound/ostomy nurse, Dr. Hsieh asked the patient to come to the emergency room for a possible blood transfusion. The patient reports that he had his hemoglobin level checked earlier this week and it was 6.7. The patient reports that he is a dialysis patient and gets his dialysis every Sunday, Sunday, and Sunday. He did go on Sunday and did complete dialysis. The patient reports generalized weakness. He denies any chills or fever. Hemoglobin when checked in the emergency room was 6.5, hematocrit 19.7, and platelet count 648. Sodium was 134, potassium 3.4, chloride 94, creatinine 4.64, which is improved since his last visit. Ferritin is 16.19, ALT 7. Other lab values are unremarkable. Emergency room contacted Dr. Hsieh, who asked for patient to be admitted to have 4 units of leukoreduced rbc with dialysis today with 2 units and then dialysis tomorrow where he will receive the other 2 units. He denies any fever or chills. He will be admitted under observation and will receive dialysis and 4 units of PRBCs with serial H and H. PAST MEDICAL HISTORY: 1. Hypertension. 2. End-stage renal disease, on hemodialysis. 3. Glaucoma. PAST SURGICAL HISTORY: 1. Left upper extremity dialysis access. 2. Right colon resection for colon cancer. The patient states that he is currently in remission. ALLERGIES: NONE. HOME MEDICATIONS: Alphagan one drop each eye b.i.d., Dorzolamide 2% one drop each eye b.i.d., and latanoprost 0.05% one drop each eye at bedtime. SOCIAL HISTORY: The patient currently lives at home with his family. No smoking, alcohol or drugs. FAMILY HISTORY: Negative for premature coronary artery disease. REVIEW OF SYSTEMS: All other review of systems are reviewed and were negative unless mentioned in the HPI. PHYSICAL EXAMINATION: GENERAL: Bradycardic. Initially hypotensive in the emergency room, but has improved, and is in no apparent distress. HEENT: Head is atraumatic and normocephalic. Eyes; eyelids are normal to inspection. Pupils are equally round and reactive to light. ENT; mouth exam is normal. Mucous membranes are moist. RESPIRATORY: Chest, breath sounds are clear. Chest movement is symmetrical. CARDIOVASCULAR: Bradycardic. Beats per minute, 54. Heart sounds are normal. ABDOMEN: He has a 3 x 8 cm open wound on the left buttock. BACK: Normal range of motion. EXTREMITIES: Upper extremity; normal inspection, normal range of motion. Palpable thrill over left upper extremity dialysis access. NEUROLOGIC: Grossly nonfocal. Moves all extremities. PSYCHIATRIC: Alert, awake, and oriented x3. SKIN: Warm, dry, and normal in color. Does have a 3 x 8 area wound on his buttock. LYMPH NODES: No palpable lymph nodes in the neck. IMPRESSION AND PLAN: 1. Anemia. Infusion of 4 units of PRBCs per Dr. Hsieh, wound/ostomy nurse, we will have dialysis today with infusion of the second unit. We will go down for dialysis in the morning and get the second 2 units. Serial H and H today and overnight. We will discharge once cleared by Dr. Hsieh. 2. Glaucoma. The patient's home medications have been restarted. 3. GI prophylaxis has been started. 4. Case has been discussed with Dr. Stoner, who agrees with plan. 5. Hospital course is dependent on clinical findings. Job ID: [id number]
[2018-08-31] MEDS: Brimonidine Tartrate 0.2% Ophth Soln 5 ml Bottle EA EYE SCH (20:10)
[2018-08-31] MEDS ORDERED: Dorzolamide HCl 2% Ophth Soln 10 ml Bottle EA EYE SCH (21:00)
[2018-08-31] MEDS ORDERED: Famotidine 20 MG TAB PO SCH (21:00)
[2018-08-31] MEDS ORDERED: Latanoprost 0.005% Ophth Soln 2.5 ml Bottle EA EYE SCH (21:00)
[2018-09-01 04:16] LABS: #Eosinphils 0.5 thou/uL (0.0-0.7); #Lymphocytes 0.6 thou/uL (1.20-3.40); #Monocytes 0.6 thou/uL (0.11-0.59); #Neutrophils 3.4 thou/uL (1.40-6.50); %Basophils 0.8 % (0.0-1.0); %Eosinophils 9.3 % (0.0-10.0); %Lymphocytes 11.4 % (21.0-51.0); %Neutrophils 67.6 % (42.0-75.0); Hemoglobin 7.7 g/dL (14.0-18.0); Mean Corpuscular HGB CONC 32.8 g/dL (32.0-36.0); Mean Corpuscular Hemoglobin 31.4 pg (27.0-31.0); Mean Corpuscular Volume 95.9 fL (78.0-98.0); Mean Platelet Volume 8.1 fL (7.4-10.4); Platelet Count 269 thou/uL (130-400); Red Blood Cell (RBC) Count 2.46 mill/uL (4.70-6.10)
[2018-09-01 04:33] LABS: ALT (SGPT) 7 U/L (8-55); AST (SGOT) 20 U/L (5-34); Albumin 2.7 g/dL (3.4-4.8); Alkaline Phosphatase 65 U/L (40-150); Anion Gap 11 mmol/L (10-20); BUN (Urea Nitrogen) 11 mg/dL (8.4-25.7); Bilirubin, Total 0.4 mg/dL (0.2-1.2); Calc. Creatinine Clearance 14 mL/min (70-130); Calcium 8.2 mg/dL (7.8-10.44); Carbon Dioxide 30 mmol/L (23-31); Chloride 101 mmol/L (98-107); Estimated GFR-MDRD 21; Globulin 2.6 g/dL (2.4-3.5); Glucose 82 mg/dL (83-110); Potassium 3.1 mmol/L (3.5-5.1); Protein, Total 5.3 g/dL (5.8-8.1); Sodium 139 mmol/L (136-145)
[2018-09-01] MEDS: Brimonidine Tartrate 0.2% Ophth Soln 5 ml Bottle EA EYE SCH (07:50)
[2018-09-01] MEDS ORDERED: Dorzolamide HCl 2% Ophth Soln 10 ml Bottle EA EYE SCH (09:00)
[2018-09-01] MEDS ORDERED: Heparin 1,000 UNITS/ML VIAL ONE (11:11)
[2018-09-01 13:47] LABS: Hemoglobin 10.2 g/dL (14.0-18.0)
[2018-09-01 13:54] VITALS: TEMP 97.8
[2018-09-01 15:58] VITALS: BP 116/70
== END 2018-09-01 18:41 | disposition home or self-care (01) ==
LOC: ERS 07:32 → T4-A 09:22
PROVIDERS: ADMIT Family Medicine; ATTEND Family Medicine
PROC: 30233N1 Transfusion of Nonautologous Red Blood Cells into Peripheral Vein, Percutaneous Approach (ICD-10-PCS; principal; 2018-08-31)
DX: D64.9 Anemia, unspecified (principal); H40.9 Unspecified glaucoma; I12.0 Hypertensive chronic kidney disease with stage 5 chronic kidney disease or end stage renal disease; N18.6 End stage renal disease; Z99.2 Dependence on renal dialysis; Z87.891 Personal history of nicotine dependence; Z79.899 Other long term (current) drug therapy
CPT/HCPCS: 36430 ×2; 80053 ×2; 82274; 82728; 84484; 85014 ×2; 85018 ×2; 85025 ×2; 85610; 85730; 86850; 86900; 86901; 86920; 93005; 97139; 99285; G0378; P9016 ×2; 36415; J1644

== ENCOUNTER 2018-09-10 10:47 | Day surgery (SDC) | payer MEDICARE, BC ==
[2018-09-09 13:51] VITALS: BMI 24.2
[2018-09-10 11:14] LABS: #Eosinphils 0.6 thou/uL (0.0-0.7); #Lymphocytes 0.5 thou/uL (1.20-3.40); #Monocytes 0.5 thou/uL (0.11-0.59); #Neutrophils 3.2 thou/uL (1.40-6.50); %Basophils 0.5 % (0.0-1.0); %Eosinophils 12.6 % (0.0-10.0); %Lymphocytes 10.7 % (21.0-51.0); %Monocytes 9.9 % (0.0-10.0); %Neutrophils 66.3 % (42.0-75.0); Hemoglobin 11.6 g/dL (14.0-18.0); Mean Corpuscular HGB CONC 32.1 g/dL (32.0-36.0); Mean Corpuscular Hemoglobin 31.9 pg (27.0-31.0); Mean Corpuscular Volume 99.7 fL (78.0-98.0); Platelet Count 151 thou/uL (130-400); RBC Distribution Width 16.6 % (11.5-14.5); Red Blood Cell (RBC) Count 3.62 mill/uL (4.70-6.10); White Blood Cell (WBC) Count 4.9 thou/uL (4.8-10.8)
[2018-09-10 11:37] LABS: Anion Gap 15 mmol/L (10-20); BUN (Urea Nitrogen) 46 mg/dL (8.4-25.7); Calc. Creatinine Clearance 8 mL/min (70-130); Calcium 8.8 mg/dL (7.8-10.44); Carbon Dioxide 22 mmol/L (23-31); Chloride 108 mmol/L (98-107); Estimated GFR-MDRD 9; Glucose 81 mg/dL (83-110); Potassium 4.2 mmol/L (3.5-5.1); Sodium 141 mmol/L (136-145)
[2018-09-10] MEDS ORDERED: Lidocaine 2% PF 5 ML VIAL ONE (11:53)
[2018-09-10] MEDS ORDERED: Bupivacaine HCl 0.5%/Epinephrine 1:200,000/PF 30 ml Vial ONE (11:53)
[2018-09-10] MEDS ORDERED: Protamine Sulfate 50 MG/5 ML VIAL ONE (11:53)
[2018-09-10] MEDS ORDERED: Heparin 5,000 UNITS/ML VIAL ONE (11:53)
[2018-09-10] MEDS ORDERED: Fentanyl 100 MCG/2 ML VIAL ONE (12:26)
[2018-09-10] MEDS ORDERED: Heparin 10,000 UNITS/ 10 ML VIAL ONE ×2 (16:13→16:21)
--- NOTE | 2018-09-10 16:41 | OP ---
DATE OF PROCEDURE: 09/10/2018 PREOPERATIVE DIAGNOSES: 1. End-stage renal disease. 2. Thrombosed loop graft, left forearm. POSTOPERATIVE DIAGNOSES: 1. End-stage renal disease. 2. Thrombosed loop graft, left forearm. PROCEDURE PERFORMED: Right arm basilic vein transposition of fistula, forearm. Note, used a segment of the cephalic vein, there was occluded mid forearm and transposed basilic vein to create a primary AV fistula, forearm. SURGEON: Iker Hudson MD. ANESTHESIA: Regional, TIVA. DESCRIPTION OF PROCEDURE: The patient was taken to the operating room, where under regional anesthesia. Right upper extremity was prepared with ChloraPrep and draped in routine fashion. Incision was made for right Lanette fistula. Incision was carried down through the skin and subcutaneous tissue longitudinally at the wrist between the cephalic vein and radial artery. Radial artery was of excellent caliber. Cephalic vein dissected free and branches ligated on the hand side with 3-0 silk ties, divided, spatulated, and interrogated with coronary dilators, passing unobstructed. It was flushed with heparinized saline solution. The patient was given 6000 units of heparin intravenously. Radial artery was clamped proximally and distally. Longitudinal arteriotomy was made for 2.5 cm anastomosis, spatulating the cephalic vein accordingly, and end vein to side radial anastomosis created with continuous suture of 6-0 Prolene. After completion of anastomosis, there noted to be not filling the cephalic vein in the proximal half of the forearm. The basilic vein was thus unroofed in the medial forearm with segmental incisions from just above the wrist to the elbow and carried down through skin and subcutaneous tissue and vein dissected free. Branches ligated between 4-0 silk ties and clips. Vein mobilized on this hand side. The vein ligated with a 3-0 silk ties and then brought out of the tunnel after being marked for orientation to prevent torsion. It was then flushed with heparinized saline solution and flushed well. An incision made over the visibly discrepancy in size of the cephalic vein mid forearm, where it narrowed and was fibrotic probably from IV access. Incision was carried down through the skin and subcutaneous tissue. Cephalic vein dissected free. A Bettie Wick tunneler used with a 12 head tunnel, the basilic vein to this area. It was then flushed with heparinized saline solution to assure proper orientation. The cephalic vein was controlled with vascular clamps, and then, it was ligated in the proximal half with a fibrotic into the vein and it was then spatulated for 2 cm end-to-end spatulating the basilic vein creating the anastomosis with continuous suture of 6-0 Prolene. After the anastomosis was completed, vascular inflow was released and there was good flow in the fistula. The patient was given 25 mg of protamine intravenously. Good hemostasis noted. Subcutaneous tissue was approximated with 3-0 Monocryl, skin with subdermal 4-0 Monocryl and [place] glue applied. Job ID: [id number]
== END 2018-09-10 16:45 | disposition home or self-care (01) ==
LOC: SDC 10:47
PROVIDERS: ATTEND Specialist
PROC: 031B0ZF Bypass Right Radial Artery to Lower Arm Vein, Open Approach (ICD-10-PCS; principal; 2018-09-10)
PROC: 3E0T3BZ Introduction of Anesthetic Agent into Peripheral Nerves and Plexi, Percutaneous Approach (ICD-10-PCS; 2018-09-10)
DX: N18.6 End stage renal disease (principal); T82.868A Thrombosis due to vascular prosthetic devices, implants and grafts, initial encounter; G89.18 Other acute postprocedural pain; Z99.2 Dependence on renal dialysis; Z79.899 Other long term (current) drug therapy
CPT/HCPCS: 80048; 85025; J0670; J0690; J1644; J2001; J2720; J3010

== ENCOUNTER 2019-03-07 18:39 | Emergency (ER) | payer MEDICARE, BC ==
[2019-03-07 19:27] LABS: #Eosinphils 0.1 thou/uL (0.0-0.7); #Lymphocytes 0.4 thou/uL (1.20-3.40); #Monocytes 0.5 thou/uL (0.11-0.59); #Neutrophils 5.6 thou/uL (1.40-6.50); %Basophils 0.4 % (0.0-1.0); %Eosinophils 1.3 % (0.0-10.0); %Lymphocytes 5.5 % (21.0-51.0); %Monocytes 8.2 % (0.0-10.0); %Neutrophils 84.6 % (42.0-75.0); Hemoglobin 6.8 g/dL (14.0-18.0); Mean Corpuscular HGB CONC 31.7 g/dL (32.0-36.0); Mean Corpuscular Hemoglobin 31.3 pg (27.0-31.0); Mean Corpuscular Volume 98.9 fL (78.0-98.0); Mean Platelet Volume 7.7 fL (7.4-10.4); Platelet Count 456 thou/uL (130-400); RBC Distribution Width 13.1 % (11.5-14.5); Red Blood Cell (RBC) Count 2.17 mill/uL (4.70-6.10); White Blood Cell (WBC) Count 6.7 thou/uL (4.8-10.8)
[2019-03-07 19:51] LABS: ALT (SGPT) 23 U/L (8-55); AST (SGOT) 22 U/L (5-34); Alkaline Phosphatase 81 U/L (40-110); Anion Gap 16 mmol/L (10-20); BUN (Urea Nitrogen) 38 mg/dL (8.4-25.7); Bilirubin, Total 0.5 mg/dL (0.2-1.2); Calc. Creatinine Clearance 0 mL/min (70-130); Calcium 8.6 mg/dL (7.8-10.44); Carbon Dioxide 28 mmol/L (23-31); Chloride 101 mmol/L (98-107); Estimated GFR-MDRD 10; Globulin 3.5 g/dL (2.4-3.5); Glucose 125 mg/dL (83-110); Potassium 3.7 mmol/L (3.5-5.1); Protein, Total 6.5 g/dL (5.8-8.1); Sodium 141 mmol/L (136-145)
== END 2019-03-07 23:29 | disposition home or self-care (01) ==
LOC: ERS 18:39
DX: D64.9 Anemia, unspecified (principal); N18.6 End stage renal disease; Z87.891 Personal history of nicotine dependence; Z79.82 Long term (current) use of aspirin
CPT/HCPCS: 36430; 80053; 83880; 85025; 86850; 86900; 86901; 86920; P9016; 36415

== ENCOUNTER 2019-03-14 16:15 | Emergency (ER) | payer MEDICARE, BC ==
[2019-03-14 17:20] LABS: #Eosinphils 0.1 thou/uL (0.0-0.7); #Lymphocytes 0.6 thou/uL (1.20-3.40); #Monocytes 0.6 thou/uL (0.11-0.59); #Neutrophils 5.4 thou/uL (1.40-6.50); %Basophils 0.3 % (0.0-1.0); %Eosinophils 1.9 % (0.0-10.0); %Monocytes 9.2 % (0.0-10.0); %Neutrophils 79.6 % (42.0-75.0); Hemoglobin 6.5 g/dL (14.0-18.0); Mean Corpuscular HGB CONC 31.3 g/dL (32.0-36.0); Mean Corpuscular Hemoglobin 30.3 pg (27.0-31.0); Mean Corpuscular Volume 96.6 fL (78.0-98.0); Mean Platelet Volume 7.9 fL (7.4-10.4); Platelet Count 386 thou/uL (130-400); Red Blood Cell (RBC) Count 2.14 mill/uL (4.70-6.10); White Blood Cell (WBC) Count 6.8 thou/uL (4.8-10.8)
[2019-03-14 17:41] LABS: ALT (SGPT) 13 U/L (8-55); AST (SGOT) 14 U/L (5-34); Albumin 2.8 g/dL (3.4-4.8); Alkaline Phosphatase 78 U/L (40-110); Anion Gap 15 mmol/L (10-20); BUN (Urea Nitrogen) 41 mg/dL (8.4-25.7); Bilirubin, Total 0.4 mg/dL (0.2-1.2); Calc. Creatinine Clearance 0 mL/min (70-130); Calcium 8.3 mg/dL (7.8-10.44); Carbon Dioxide 29 mmol/L (23-31); Chloride 101 mmol/L (98-107); Estimated GFR-MDRD 11; Globulin 3.6 g/dL (2.4-3.5); Glucose 104 mg/dL (83-110); Potassium 3.6 mmol/L (3.5-5.1); Protein, Total 6.4 g/dL (5.8-8.1); Sodium 141 mmol/L (136-145)
== END 2019-03-15 00:45 | disposition home or self-care (01) ==
LOC: ERS 16:15
DX: N18.6 End stage renal disease (principal); D63.1 Anemia in chronic kidney disease; Z99.2 Dependence on renal dialysis; Z87.891 Personal history of nicotine dependence; Z79.82 Long term (current) use of aspirin
CPT/HCPCS: 36430; 80053; 85025; 86850; 86900; 86901; 86920; P9016; 36415; 99285

== ENCOUNTER 2019-04-07 14:04 | Inpatient (IN) | payer MEDICARE, BC ==
[2019-04-07 15:05] LABS: #Eosinphils 0.2 thou/uL (0.0-0.7); #Lymphocytes 0.6 thou/uL (1.20-3.40); #Monocytes 0.3 thou/uL (0.11-0.59); %Basophils 0.6 % (0.0-1.0); %Eosinophils 3.8 % (0.0-10.0); %Lymphocytes 14.4 % (21.0-51.0); %Monocytes 7.3 % (0.0-10.0); %Neutrophils 73.9 % (42.0-75.0); Hemoglobin 6.6 g/dL (14.0-18.0); Mean Corpuscular HGB CONC 30.4 g/dL (32.0-36.0); Mean Corpuscular Hemoglobin 29.1 pg (27.0-31.0); Mean Corpuscular Volume 95.7 fL (78.0-98.0); Platelet Count 250 thou/uL (130-400); RBC Distribution Width 14.7 % (11.5-14.5); Red Blood Cell (RBC) Count 2.25 mill/uL (4.70-6.10)
[2019-04-07 15:32] LABS: ALT (SGPT) Less than 7 U/L (8-55); AST (SGOT) 14 U/L (5-34); Albumin 2.8 g/dL (3.4-4.8); Alkaline Phosphatase 73 U/L (40-110); Anion Gap 13 mmol/L (10-20); BUN (Urea Nitrogen) 19 mg/dL (8.4-25.7); Bilirubin, Total 0.4 mg/dL (0.2-1.2); Calc. Creatinine Clearance 0 mL/min (70-130); Calcium 8.4 mg/dL (7.8-10.44); Carbon Dioxide 28 mmol/L (23-31); Chloride 102 mmol/L (98-107); Estimated GFR-MDRD 24; Globulin 3.9 g/dL (2.4-3.5); Glucose 135 mg/dL (83-110); Potassium 3.2 mmol/L (3.5-5.1); Protein, Total 6.7 g/dL (5.8-8.1); Sodium 140 mmol/L (136-145)
[2019-04-07] MEDS ORDERED: Pantoprazole 40 MG VIAL ONE ×2 (20:22)
[2019-04-07] MEDS ORDERED: Pantoprazole 80 MG, Admixture Fee 1 EACH in Sodium Chloride 0.9% 100 ML IVPB SCH (20:45)
[2019-04-07 21:41] LABS: Hemoglobin 6.3 g/dL (14.0-18.0)
[2019-04-07 21:47] LABS: INR-International Normal Ratio 1.2; PTT 50.2 SEC (22.9-36.1); Prothrombin Time 14.8 SEC (12.0-14.7)
[2019-04-07] MEDS ORDERED: Acetaminophen 650 MG Suppository PR PRN (21:53)
[2019-04-07] MEDS ORDERED: Acetaminophen 325 MG TAB PO PRN (21:53)
[2019-04-07] MEDS ORDERED: Potassium Chloride 20 MEQ TAB PO SCH (22:15)
--- NOTE | 2019-04-07 23:41 | HP ---
TIME OF ASSESSMENT: 2000 hours. CHIEF COMPLAINT: Weakness and low hemoglobin noted while at dialysis. HISTORY OF PRESENT ILLNESS: Mr. Wynn is an 88-year-old gentleman with end- stage renal disease, who undergoes dialysis under the direction of Dr. Hsieh, who has been experiencing melena for several months and for the last couple of weeks, has been feeling increasingly weak. The patient apparently presented for his regularly scheduled dialysis today and was noted to have a low hemoglobin of 6.6. The patient advised to come into the emergency department. He has required blood transfusions in the past. He last received a transfusion in October 2018. The patient denies any associated abdominal pain. No nausea, vomiting, or hematemesis. No other complaints. Denies any chest pain. Reports feeling slightly short of breath with exertion, but states it is minimal. His main complaint is that of weakness. Normally, he is able to mobilize independently, but when he is anemic, he requires some assistance with ambulation due to the weakness. He also complains of some right shoulder discomfort, but denies any recent trauma or injury. He states the entire shoulder joint is sore with some mild increased discomfort with range of motion. He is unsure how long he has had this pain for. REVIEW OF SYSTEMS: The patient denies any fevers, chills, or sweats. No headaches or dizziness. He is found to be at baseline. No urinary symptoms. He still continues to make urine and according to family, it has been very cloudy as of recently. All other review of systems negative. PAST MEDICAL HISTORY: 1. History of colon cancer. 2. End-stage renal disease, on dialysis, Sunday, Sunday, Sunday. 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 PAST SURGICAL HISTORY: 1. Dialysis port to the left chest. 2. Shunt to left arm, no longer in use. 3. Right arm shunt. 4. Colon resection for colon cancer. SOCIAL HISTORY: The patient lives with family. Reports being a former smoker. Denies any alcohol use or illicit drug use. ALLERGIES: NO KNOWN DRUG ALLERGIES. CURRENT MEDICATIONS: Aspirin 325 mg p.o. daily. PHYSICAL EXAMINATION: GENERAL: The patient appears thin, frail, well developed, in no acute distress. VITAL SIGNS: Temperature 97.5, pulse 70, blood pressure 103/51, respirations 17 , and O2 saturation 100% on room air. HEENT: Normocephalic and atraumatic. Unable to assess extraocular movements as the patient is lying. Has no history of bilateral glaucoma as per son. NECK: Supple. Full range of motion. Oropharynx clear, but notable for dry oral mucosa. LUNGS: Clear to auscultation bilaterally without any wheezes, rales, or rhonchi. CARDIAC: Regular rate and rhythm. ABDOMEN: Soft, nontender, nondistended. Normoactive bowel sounds present. No guarding or rigidity. EXTREMITIES: No lower leg swelling or edema. NEUROLOGIC: Alert and oriented x3. No neuro deficits on exam. SKIN: Dry. MUSCULOSKELETAL: Right shoulder with some discomfort with range of motion. Tenderness to entire shoulder joint. No warmth or redness. No swelling. No bruising. The patient has a small abrasion to the superior part of the shoulder joint, measuring less than a centimeter. No active bleeding. ED COURSE: In the emergency department, the patient underwent laboratory studies, showing a hemoglobin of 6.6. This has been repeated and is 6.3. White count 4.0. Platelets 250. Potassium slightly low at 3.2. BUN 19, creatinine 3.02, GFR 24. Renal function essentially stable. Calcium 9.4. LFTs unremarkable. BNP 691.3, albumin 2.8. IMAGING DATA: None. The patient started on IV Protonix. Case was discussed with Dr. Hsieh who advised transfusion with 2 units of packed red blood cells to be administered with hemodialysis in the morning. IMPRESSION AND PLAN: Mr. Wynn is a pleasant 88-year-old gentleman, presenting with weakness, who is being admitted for management of the following; 1. Chronic anemia. The patient with complaints of melena, which according to his family, has been longstanding. H and H remain stable compared to initial laboratory studies done. Plan is for 2 units of packed red blood cell transfusion to be coordinated with hemodialysis in the morning. We will place a consultation with Gastroenterology. He supposedly was recommended endoscopy, but the patient is unsure when this has been arranged as an outpatient. We will continue Protonix. We will keep him n.p.o. at midnight. 2. End-stage renal disease, on hemodialysis. Consultation placed to on-call rug underlay machine operator. The patient known to Dr. Ubaldo Hsieh. 3. Hypertension. Monitor blood pressure. We will hold antihypertensives for now given BPs on lower side. 4. Right shoulder pain. We will obtain x-ray. 5. Hypokalemia. Potassium 3.2. We will add on magnesium. Monitor electrolytes and replace as needed. 6. Weakness. As mentioned, it is likely due to symptomatic anemia. Given complaints of cloudy urine, we will obtain urinalysis/urine culture to rule out any underlying infection. 7. Code status: Full. The patient's case was discussed with attending who agrees with plan of care as described above. Job ID: [id number] MTDD
[2019-04-08 00:17] VITALS: BMI 20.1
[2019-04-08 04:53] LABS: #Eosinphils 0.1 thou/uL (0.0-0.7); #Lymphocytes 0.7 thou/uL (1.20-3.40); #Monocytes 0.4 thou/uL (0.11-0.59); #Neutrophils 3.2 thou/uL (1.40-6.50); %Basophils 0.3 % (0.0-1.0); %Eosinophils 2.7 % (0.0-10.0); %Lymphocytes 14.6 % (21.0-51.0); %Monocytes 9.5 % (0.0-10.0); Hemoglobin 5.8 g/dL (14.0-18.0); Mean Corpuscular HGB CONC 30.6 g/dL (32.0-36.0); Mean Corpuscular Hemoglobin 29.1 pg (27.0-31.0); Mean Corpuscular Volume 94.9 fL (78.0-98.0); Mean Platelet Volume 8.4 fL (7.4-10.4); Platelet Count 220 thou/uL (130-400); RBC Distribution Width 14.8 % (11.5-14.5); Red Blood Cell (RBC) Count 1.98 mill/uL (4.70-6.10); White Blood Cell (WBC) Count 4.4 thou/uL (4.8-10.8)
[2019-04-08 05:11] LABS: ALT (SGPT) Less than 7 U/L (8-55); AST (SGOT) 12 U/L (5-34); Albumin 2.5 g/dL (3.4-4.8); Alkaline Phosphatase 62 U/L (40-110); Anion Gap 11 mmol/L (10-20); BUN (Urea Nitrogen) 26 mg/dL (8.4-25.7); Bilirubin, Total 0.3 mg/dL (0.2-1.2); Calc. Creatinine Clearance 11 mL/min (70-130); Calcium 7.8 mg/dL (7.8-10.44); Carbon Dioxide 29 mmol/L (23-31); Chloride 103 mmol/L (98-107); Estimated GFR-MDRD 17; Globulin 3.3 g/dL (2.4-3.5); Glucose 82 mg/dL (83-110); Potassium 3.5 mmol/L (3.5-5.1); Protein, Total 5.8 g/dL (5.8-8.1); Sodium 139 mmol/L (136-145)
[2019-04-08] MEDS ORDERED: Benzonatate 100 MG CAP PO PRN (07:40)
[2019-04-08] MEDS ORDERED: diphenhydrAMINE 25 MG CAP PO PRN (07:40)
[2019-04-08] MEDS ORDERED: Labetalol HCl 100 MG/20 ML VIAL SLOW IVP PRN (07:40)
[2019-04-08] MEDS ORDERED: Melatonin 3 MG TAB PO PRN (07:40)
[2019-04-08] MEDS ORDERED: Docusate 100 MG CAP PO PRN (07:40)
[2019-04-08 10:34] LABS: Hemoglobin 7.9 g/dL (14.0-18.0)
[2019-04-08] MEDS: Dorzolamide HCl 2% Ophth Soln 10 ml Bottle EA EYE SCH ×2 (11:22→19:52)
[2019-04-08] MEDS: Pantoprazole 40 MG VIAL IVP SCH ×2 (11:24→19:51)
[2019-04-08] MEDS: Brimonidine Tartrate 0.2% Ophth Soln 5 ml Bottle EA EYE SCH ×2 (11:27→19:52)
--- NOTE | 2019-04-08 13:24 | PDOC.HOSPP ---
- Subjective Subjective: Seen and examined on dialysis. Breathing comfortably on room air. Denies pain. Patient denies having blood or black and his bowel movement, though he states he does not look. Time was given for questions, all answered in detail. Patient receiving blood while on dialysis. - Objective Vital Signs & Weight: Vital Signs (12 hours) Temp Pulse Pulse Resp BP BP BP 04/08/19 11:30 04/08/19 11:28 97.7 F 65 20 113/55 L 04/08/19 08:40 97.3 F L 63 18 146/75 H 04/08/19 08:03 97.8 F 77 14 133/101 H 81/55 L 04/08/19 08:00 97.5 F L 59 L 20 113/57 L 04/08/19 07:30 97.5 F L 57 L 20 117/58 L 04/08/19 03:44 97.7 F 69 16 123/58 L BP Pulse Ox 04/08/19 11:30 99 04/08/19 11:28 99 04/08/19 08:40 04/08/19 08:03 125/56 L 100 04/08/19 08:00 04/08/19 07:30 04/08/19 03:44 100 Weight Weight 136 lb 9 oz I&O: 04/07/19 04/08/19 04/09/19 06:59 06:59 06:59 Intake Total 350 Balance 350 Result Diagrams: 04/08/19 10:25 04/08/19 04:25 Radiology Reviewed by me: Yes Hospitalist ROS - Review of Systems All other systems reviewed; all pertinent +/- noted in HPI/Subj - Medication Medications: Active Medications Generic Name Dose Route Start Last Admin Trade Name Freq PRN Reason Stop Dose Admin Brimonidine Tartrate 1 drop 04/08/19 09:00 04/08/19 11:27 Alphagan 0.2% Ophth Soln EA EYE 1 drop BID KAITY Administration Dorzolamide HCl 1 drop 04/08/19 09:00 04/08/19 11:22 Trusopt 2% Ophth Soln EA EYE 1 drop BID KAITY Administration Pantoprazole Sodium 40 mg 04/08/19 09:00 04/08/19 11:24 Protonix IVP 40 mg BID KAITY Administration Sodium Chloride 10 ml 04/08/19 09:00 04/08/19 11:25 Flush - Normal Saline IVF 10 ml Q12HR KAITY Administration - Exam General Appearance: NAD, awake alert Eye: anicteric sclera ENT: normocephalic atraumatic, moist mucosa Neck: supple, symmetric, no lymphadenopathy Heart: no murmur, no gallops, no rubs Respiratory: CTAB, no wheezes, no rales, no ronchi, normal chest expansion Gastrointestinal: soft, non-tender, no rigidity Extremities: no edema Skin: no lesions, no rashes Neurological: cranial nerve grossly intact, no focal deficits Musculoskeletal: generalized weakness Psychiatric: lethargic Hosp A/P (1) Symptomatic anemia Code(s): D64.9 - ANEMIA, UNSPECIFIED Status: Acute (2) GI bleed Code(s): K92.2 - GASTROINTESTINAL HEMORRHAGE, UNSPECIFIED Status: Acute (3) Anemia of renal disease Code(s): N18.9 - CHRONIC KIDNEY DISEASE, UNSPECIFIED; D63.1 - ANEMIA IN CHRONIC KIDNEY DISEASE Status: Chronic (4) 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 bleeding cardiac clearance requested hemodialysis per nephrology replace electrolytes as needed continue other home medications is able blood pressure control G.I. prophylaxis DVT prophylaxis
--- NOTE | 2019-04-08 19:11 | CON ---
DATE OF CONSULTATION: REASON FOR CONSULTATION: Preoperative clearance. HISTORY OF PRESENT ILLNESS: Mr. Wynn is an 88-year-old gentleman, who was seen and evaluated 2 years ago. He recently presented with anemia. He has a history of end-stage renal disease. During my visit, he denied chest pain, pressure, shortness of breath, or other associated symptoms. PAST MEDICAL HISTORY: 1. Colon cancer. 2. End-stage renal disease. 3. Glaucoma. 4. Dialysis placement. 5. Colon resection. SOCIAL HISTORY: Previous tobacco use. No current tobacco or alcohol use. ALLERGIES: NONE. HOME MEDICATIONS: Only aspirin. REVIEW OF SYSTEMS: A 10-point review of systems is reviewed and as above, otherwise negative. PHYSICAL EXAMINATION: VITAL SIGNS: Blood pressure 113/55, pulse 65, and temperature 97.7. GENERAL: Patient is a pleasant male, who is in no acute distress. The patient appears their stated age. NEUROLOGIC: The patient is alert and oriented x3 with no focal neurologic deficits. HEENT: Sclerae without icterus. Mouth has moist mucous membranes with normal pallor. NECK: No JVD. Carotid upstroke brisk. No bruits bilaterally. LUNGS: Clear to auscultation with unlabored respirations. BACK: No scoliosis or kyphosis. CARDIAC: Regular rate and rhythm with normal S1 and S2. No S3 or S4 noted. No significant rubs, murmurs, thrills, or gallops noted throughout the precordium. PMI is not displaced. There is no parasternal heave. ABDOMEN: Soft, nontender, nondistended. No peritoneal signs present. No hepatosplenomegaly. No abnormal striae. EXTREMITIES: 2+ femoral and 2+ dorsalis pedis pulses. No cyanosis, clubbing, or edema. SKIN: No gross abnormalities. DIAGNOSTIC STUDIES: EKG shows normal sinus rhythm with nonspecific ST-T wave changes. IMPRESSION: 1. Preop clearance. 2. End-stage renal disease. 3. Marked anemia. RECOMMENDATIONS: Mr. Wynn has no current symptoms suggesting angina. At this point, his only risk factors would include end-stage renal disease as well as advanced age. The benefits outweigh the risks on proceeding with the EGD and colonoscopy to assess the potential source for anemia. Otherwise, I have no further recommendations. Job ID: [id number]
[2019-04-08] MEDS ORDERED: Latanoprost 0.005% Ophth Soln 2.5 ml Bottle EA EYE SCH (21:00)
--- NOTE | 2019-04-09 02:17 | CON ---
DATE OF CONSULTATION: 04/08/2019 REASON FOR CONSULTATION: Anemia, possible melena. CONSULTING PROVIDER: MAXIMO Hidalgo HISTORY OF PRESENT ILLNESS: The patient is an 88-year-old male with past medical history of end-stage renal disease on hemodialysis, polycystic kidney disease, glaucoma, chronic anemia and colon cancer status post resection, presenting with complaints of weakness. Per chart review, the patient apparently presented to his regularly scheduled dialysis and was noted to have a low hemoglobin of 6.6 when compared to previous evaluations. As such, the patient was advised to come to the emergency department for further evaluation. However, on chart review, there was mention that the patient had been having repeated bouts of dark black colored stools that have been present for the last few months. However, upon questioning the patient about this particular issue, he denied that the occurrence altogether and no family was there to corroborate the statement. However, the patient did state that he has had repeated bouts of anemia in the past generating increased fatigue/weakness and has had multiple blood transfusions in the past in order to compensate for this chronic anemia. Otherwise, the patient states that he has been doing well and currently denies any nausea, vomiting, fevers, chills, hematemesis, melena, hematochezia, abdominal pain, diarrhea, constipation, dysphagia, odynophagia, or weight loss. Of note, the patient was admitted to the hospital on August of 2018, and at that time noted to have a significant anemia for which he was transfused 2 units of PRBCs. However, at that time, labs reviewed from his tractor drill operator showed the presence of low iron, low TIBC and high ferritin, consistent with anemia of renal disease rather than chronic blood loss/iron deficiency. The patient had undergone both EGD and colonoscopy on May 07, 2018, with no evidence of active or recent bleeding seen during both of those examinations making a non GI source of his anemia more likely. REVIEW OF SYSTEMS: A 10-category review of systems was obtained with all responses negative except for the pertinent positives as listed in HPI. PAST MEDICAL HISTORY: As per HPI. PAST SURGICAL HISTORY: Arteriovenous fistula placement to both the left and right arms, dialysis port placement of the left chest, and colon cancer resection. FAMILY HISTORY: Denies any GI malignancies. SOCIAL HISTORY: Denies any tobacco, alcohol, or illicit drug use. OUTPATIENT MEDICATIONS: Reviewed. ALLERGIES: NO KNOWN DRUG ALLERGIES. PHYSICAL EXAMINATION: VITAL SIGNS: Temperature 98.4, pulse 65, blood pressure 118/57, respiratory rate 16, saturating 100% on room air. GENERAL: The patient was lying in bed, in no acute distress. Alert and oriented x4. HEENT: Normocephalic, atraumatic. NECK: Supple. No JVD or scleral icterus noted. Vision somewhat impaired. CARDIOVASCULAR: Regular rate and rhythm with no discernible murmurs, gallops, or rubs. RESPIRATORY: Clear to auscultation bilaterally with no discernible wheezes or rales. ABDOMEN: Normoactive bowel sounds. Soft, nontender, and nondistended. EXTREMITIES: No cyanosis, clubbing, or edema. LABORATORY DATA: CBC with a white blood cell count of 4.4, hemoglobin 7.9, hematocrit 24.7, platelets 220. Chemistry with a sodium of 139, potassium 3.5, chloride 103, CO2 of 29, BUN 26, creatinine 4.16, glucose 82, AST 12, ALT less than 7, alkaline phosphatase 62, total bilirubin 0.3. INR 1.2. BNP 691, albumin 2.5. IMAGING DATA: No current GI imaging is available for review. ASSESSMENT AND PLAN: The patient is an 88-year-old male with past medical history of colon cancer status post resection, colon polyps with adenomatous features, most recent colonoscopy in April 2018, glaucoma, polycystic kidney disease, end- stage renal disease on hemodialysis, and chronic anemia presenting with continued anemia with recent decrease requiring transfusion. Anemia. The patient has had a chronic anemia that has been present for at least the last year and has undergone significant workup on multiple hospitalizations and has undergone multiple transfusions as a result. The patient underwent both EGD and colonoscopy for the indication of anemia in April of 2018, with no discernible origin of his anemia seen during either those exams. Upon review of the patient 's iron indices in August of 2018, he was noted to have low iron, low TIBC, and high ferritin, which is more consistent of anemia of chronic disease/renal disease. More recently, the patient was evaluated in the GI Clinic on April 03, 2019, and at that time did not endorse any evidence of melenic type stools, but rather had been having mild constipation which is not characteristic of chronic GI blood loss. However, during that visit, given his continued drop in H and H, capsule endoscopy was ordered that time for further evaluation. Based on the current information , his anemia still seems to be more in line with anemia of renal disease given lack of evidence of overt GI bleeding and iron indices earlier this year were more consistent with anemia of chronic disease. However, given his decreasing H and H and continued blood transfusion requirement, I think a capsule endoscopy is reasonable at this time for further evaluation. However, capsule endoscopies are not performed as an inpatient and he will need to be discharged to an outpatient status in order to get this procedure done. RECOMMENDATIONS: 1. Would continue to trend the patient's H and H and transfuse as necessary to maintain an H and H of 09/29. 2. Continue to monitor clinically for signs of active GI bleeding. 3. Since the patient has not exhibited any evidence of GI bleeding during this hospitalization over the last 24 hours and has been given blood product with an appropriate response, he could be potentially discharged to follow up in the outpatient clinic with a capsule endoscopy scheduled for later this week ( ) for further evaluation of his anemia. If this study is negative, then I would strongly encourage evaluation of a non GI source of his anemia. 4. We will continue patient on pantoprazole 40 mg daily in light of his anemia and hiatal hernia seen on prior exams, which could contribute to acid reflux. If the patient is stable to discharge, I would strongly recommend discharging him to the outpatient status and followup for capsule endoscopy later this week in the GI Clinic. Given his negative upper and lower endoscopies within the year, endoscopic intervention is not planned at this time. We will continue to follow peripherally while the patient is in the hospital. Please call with any questions. Job ID: [id number] [facility]
--- NOTE | 2019-04-09 06:02 | PDOC.CPN ---
- Subjective Date: 04/09/19 Time: 08:36 Interval history: No complaints today - Objective Allergies/Adverse Reactions: Allergies Allergy/AdvReac Type Severity Reaction Status Date / Time No Known Drug Allergies Allergy Verified 04/08/19 00:15 Visit Medications: Current Medications Acetaminophen (Tylenol) 650 mg PO Q4H PRN PRN Reason: Headache/Fever/Mild Pain (1-3) Acetaminophen (Tylenol) 650 mg AK Q4H PRN PRN Reason: Headache/Fever/Mild Pain (1-3) Albuterol/Ipratropium (Duoneb) 3 ml NEB [id number] PRN PRN Reason: SOB &/or Wheezing Benzonatate (Tessalon) 100 mg PO Q4H PRN PRN Reason: Cough Brimonidine Tartrate (Alphagan 0.2% Ophth Soln) 1 drop EA EYE BID [facility] Last Admin: 04/08/19 19:52 Dose: 1 drop Diphenhydramine HCl (Benadryl) 25 mg PO Q6H PRN PRN Reason: Itching & Insomnia Docusate Sodium (Colace) 100 mg PO BIDPRN PRN PRN Reason: Constipation Dorzolamide HCl (Trusopt 2% Ophth Soln) 1 drop EA EYE BID [facility] Last Admin: 04/08/19 19:52 Dose: 1 drop Labetalol HCl (Normodyne) 10 mg SLOW IVP Q4H PRN PRN Reason: SBP Greater Than 180 Latanoprost (Xalatan 0.005% Ophth Soln) 1 drop EA EYE HS [facility] Last Admin: 04/08/19 19:51 Dose: 1 drop Melatonin (Melatonin) 3 mg PO HS PRN PRN Reason: Insomnia Pantoprazole Sodium (Protonix) 40 mg IVP BID [facility] Last Admin: 04/08/19 19:51 Dose: 40 mg Sodium Chloride (Flush - Normal Saline) 10 ml IVF PRN PRN PRN Reason: Saline Flush Sodium Chloride (Flush - Normal Saline) 10 ml IVF Q12HR [facility] Last Admin: 04/08/19 19:52 Dose: 10 ml Vital Signs & Weight: Vital Signs Temp Pulse Resp BP Pulse Ox 04/09/19 03:42 98.2 F 64 16 125/72 100 04/08/19 23:36 98.4 F 65 16 118/57 L 100 04/08/19 19:46 98.3 F 63 16 116/66 100 Weight 136 lb 9 oz - Physical Exam General: no apparent distress Neck: supple neck Cardiac: no murmur, regular rate, regular rhythm Lungs: normal exam Extremities: 1+ LE edema - Labs Result Diagrams: 04/08/19 10:25 04/08/19 04:25 - Assessment/Plan Assessment/Plan: Anemia ESRD h/o colon cancer Given npo symptoms and no ekg changes suggesting ischemia, ok to proceed Pt felt to be at low risk for complications for EGD, colonoscopy NO further recommendations Will sign off
[2019-04-09] MEDS: Pantoprazole 40 MG VIAL IVP SCH (07:36)
[2019-04-09] MEDS: Brimonidine Tartrate 0.2% Ophth Soln 5 ml Bottle EA EYE SCH (07:37)
[2019-04-09] MEDS: Dorzolamide HCl 2% Ophth Soln 10 ml Bottle EA EYE SCH (07:37)
[2019-04-09 09:25] LABS: Hemoglobin 8.1 g/dL (14.0-18.0)
[2019-04-09 11:57] VITALS: BP 113/58; TEMP 97.6
--- NOTE | 2019-04-09 19:04 | DIS ---
DATE OF ADMISSION: 04/07/2019 DATE OF DISCHARGE: 04/09/2019 DISCHARGE DISPOSITION: Home. FOLLOWUP: 1. Follow up with primary care physician in 1 week. 2. Follow up with primary delivery route driver, Dr. Iker Hsieh and Gastroenterology, Dr. Michele as scheduled. 3. Outpatient capsule endoscopy is recommended. ALLERGIES: NO KNOWN DRUG ALLERGIES. DISCHARGE MEDICATIONS: The patient will continue all of his home medications. He was advised to hold aspirin for now until cleared by Dr. Iker Hsieh. The patient was seen and examined on the day of discharge. Denies any new complaints. No hematemesis, melena, chest pain, or shortness of breath reported. BRIEF HOSPITAL COURSE: The patient is an 88-year-old male with end-stage renal disease, on hemodialysis, presented to the emergency room with generalized weakness along with abnormal labs. He was found to have hemoglobin of 6.6 as outpatient. His last transfusion was in October of 2018. Please refer to the history and physical for further details. The patient was admitted to the hospital with a diagnosis of anemia of unclear etiology. The patient was evaluated by Gastroenterology as well as Cardiology Service. He underwent hemodialysis per Nephrology. He received total of 4 units of PRBC. His hemoglobin has stabilized. He has been cleared by consultants for discharge. He will follow up with GI Clinic for outpatient capsule endoscopy. FINAL DIAGNOSES: 1. Generalized weakness secondary to anemia. 2. Anemia suspected to be secondary to chronic gastrointestinal blood loss. The patient received total of 4 units of packed red blood cells. 3. End-stage renal disease, on hemodialysis. 4. Hypertension. 5. Hypokalemia. 6. Esophagogastroduodenoscopy and colonoscopy in April 2018 without any source of bleeding. 7. The patient understands the above plan of care. Job ID: [id number]
== END 2019-04-09 18:32 | disposition home or self-care (01) | DRG 811 ==
LOC: ERS 14:04 → ERHOLD 20:43 → ONC 23:35
PROVIDERS: ADMIT Hospitalist; ATTEND Hospitalist
PROC: 30233N1 Transfusion of Nonautologous Red Blood Cells into Peripheral Vein, Percutaneous Approach (ICD-10-PCS; principal; 2019-04-07)
DX: D64.9 Anemia, unspecified (principal); N18.6 End stage renal disease; I12.0 Hypertensive chronic kidney disease with stage 5 chronic kidney disease or end stage renal disease; Q61.3 Polycystic kidney, unspecified; Z99.2 Dependence on renal dialysis; Z79.899 Other long term (current) drug therapy; Z79.82 Long term (current) use of aspirin; E87.6 Hypokalemia; Z90.49 Acquired absence of other specified parts of digestive tract; Z85.038 Personal history of other malignant neoplasm of large intestine
CPT/HCPCS: 36415; 36430; 80053; 83880; 85014; 85018; 85025; 85610; 85730; 86850; 86900; 86901; 93005; 93010; C9113; J3490; P9016

== ENCOUNTER 2019-04-15 09:14 | Outpatient (CLI) | payer MEDICARE, BC ==
--- NOTE | 2019-04-15 11:05 | MRI ---
MRI OF THE ABDOMEN WITHOUT IV CONTRAST: INDICATION: Abnormal imaging of the liver with history of anemia. COMPARISON: Right upper quadrant ultrasound dated 08/18/[address] of the abdomen and pelvis with contrast dated 08/17/2018. Comparison is also made with a prior noncontrast CT of the abdomen dated December 26, 2007 FINDINGS: As seen on the comparison CT examination there is extensive cystic replacement of the renal parenchym a. This is consistent with autosomal dominant polycystic kidney disease. There are numerous cystic abnormalities seen along the course of the biliary tree with a more prominent central cystic lesion s een near the confluence of the left intrahepatic bile ducts within the central aspect of the left hepatic lobe measuring 2.1 cm. Proximal to this region is some intrahepatic biliary ductal dilatation into the left hepatic lobe best seen on image 21 of series 10. Numerous scattered small cysts are seen along the biliary tree within the liver itself. The common bile measures 6.7 mm which is normal- appearing. There is some layered gallbladder sludge within the gallbladder. The main pancreatic duct is normal-appearing. Adrenal glands and spleen appear within normal limits. No free fluid is keith ntified. IMPRESSION: 1. Multiple cystic abnormalities involving the kidneys and liver most suspicious for autosomal domina nt polycystic kidney disease. There is a very prominent cystic lesion, seen near the confluence of the left intrahepatic biliary ducts, inducing moderate dilatation of the left hepatic lobe intrahepat ic biliary system. No overt suspicious mass is grossly evident within the limitations of this noncontrast examination. As a conservative measure would recommend a follow-up MRCP in 3-6 months to document stability. 2. Layered gallbladder sludge within the gallbladder. Transcribed Date/Time: 04/15/2019 11:12 AM
== END 2019-04-15 09:15 | disposition home or self-care (01) ==
LOC: BICMRI 09:14
PROVIDERS: ATTEND Physician Assistant Medical
DX: D50.0 Iron deficiency anemia secondary to blood loss (chronic) (principal); R93.2 Abnormal findings on diagnostic imaging of liver and biliary tract; N18.9 Chronic kidney disease, unspecified; D63.1 Anemia in chronic kidney disease; K83.5 Biliary cyst; N28.89 Other specified disorders of kidney and ureter; Z85.038 Personal history of other malignant neoplasm of large intestine
CPT/HCPCS: 74181

== ENCOUNTER 2019-12-30 13:04 | Emergency (ER) | payer MEDICARE, BC ==
[2019-12-30 14:16] LABS: Hemoglobin 9.5 g/dL (14.0-18.0); Mean Corpuscular HGB CONC 31.6 g/dL (32.0-36.0); Mean Corpuscular Hemoglobin 29.4 pg (27.0-31.0); Mean Platelet Volume 9.2 fL (7.4-10.4); Platelet Count 170 thou/uL (130-400); RBC Distribution Width 16.2 % (11.5-14.5); Red Blood Cell (RBC) Count 3.22 mill/uL (4.70-6.10); White Blood Cell (WBC) Count 2.4 thou/uL (4.8-10.8)
[2019-12-30 14:21] LABS: INR-International Normal Ratio 1.1; Prothrombin Time 14.2 sec (12.0-14.7)
[2019-12-30 14:22] LABS: PTT 42.9 sec (22.9-36.1)
[2019-12-30 14:42] LABS: ALT (SGPT) Less than 7 U/L (8-55); AST (SGOT) 11 U/L (5-34); Albumin 2.9 g/dL (3.4-4.8); Alkaline Phosphatase 61 U/L (40-110); Anion Gap 13 mmol/L (10-20); Anisocytosis SLIGHT = 6-15 cells (100X) (0-5/hpf); BUN (Urea Nitrogen) 42 mg/dL (8.4-25.7); Band 1 % (5-11); Bilirubin, Total 0.4 mg/dL (0.2-1.2); Calc. Creatinine Clearance 0 mL/min (70-130); Calcium 8.2 mg/dL (7.8-10.44); Carbon Dioxide 26 mmol/L (23-31); Chloride 102 mmol/L (98-107); Eosinophils 6 % (0-10); Estimated GFR-MDRD 14; Globulin 4.5 g/dL (2.4-3.5); Glucose 96 mg/dL (83-110); Iron 39 ug/dL (65-175); Iron Binding Capacity, Total 130 mcg/dL (261-462); Lymphocytes 16 % (21-51); MDiff Complete? YES; Monocytes 11 % (0-10); Neutrophil 62 % (42-75); Platelet Morphology Comment Appears Adequate; Polychromasia SLIGHT = 2-3 cells (100X) (0-2/hpf); Potassium 4.3 mmol/L (3.5-5.1); Protein, Total 7.4 g/dL (5.8-8.1); Sodium 137 mmol/L (136-145)
== END 2019-12-30 15:46 | disposition home or self-care (01) ==
LOC: ERS 13:04
DX: D64.9 Anemia, unspecified (principal); I12.0 Hypertensive chronic kidney disease with stage 5 chronic kidney disease or end stage renal disease; N18.6 End stage renal disease; I25.10 Atherosclerotic heart disease of native coronary artery without angina pectoris; Z85.038 Personal history of other malignant neoplasm of large intestine; E78.5 Hyperlipidemia, unspecified; Z87.891 Personal history of nicotine dependence; Z79.82 Long term (current) use of aspirin
CPT/HCPCS: 36415; 80053; 82728; 83540; 83550; 85025; 85610; 85730; 86850; 86900; 86901; 93005

== ENCOUNTER 2020-04-27 17:30 | Inpatient (IN) | payer MEDICARE ==
[~2020-04-27 17:30] MED LIST: Heparin 1,000 UNITS/ML VIAL ONE
[2020-04-27] MEDS ORDERED: Dextrose 50% Abboject 50 ML SYRINGE ONE ×3 (17:51→17:56)
[2020-04-27] MEDS ORDERED: Sodium Bicarb 50 MEQ/50 ML VIAL ONE (17:56)
[2020-04-27 19:33] LABS: #Lymphocytes 0.7 thou/uL (1.20-3.40); #Monocytes 0.7 thou/uL (0.11-0.59); #Neutrophils 7.8 thou/uL (1.40-6.50); %Basophils 0.5 % (0.0-1.0); %Eosinophils 0.5 % (0.0-10.0); %Lymphocytes 7.1 % (21.0-51.0); %Monocytes 7.8 % (0.0-10.0); %Neutrophils 84.2 % (42.0-75.0); Hemoglobin 10.4 g/dL (14.0-18.0); Mean Corpuscular Hemoglobin 30.1 pg (27.0-31.0); Mean Corpuscular Volume 93.9 fL (78.0-98.0); Mean Platelet Volume 10.2 fL (7.4-10.4); Platelet Count 151 thou/uL (130-400); RBC Distribution Width 15.2 % (11.5-14.5); Red Blood Cell (RBC) Count 3.47 mill/uL (4.70-6.10); White Blood Cell (WBC) Count 9.3 thou/uL (4.8-10.8)
[2020-04-27 19:39] LABS: INR-International Normal Ratio 1.1; Prothrombin Time 14.8 sec (12.0-14.7)
[2020-04-27 19:40] LABS: PTT 40.7 sec (22.9-36.1)
[2020-04-27 19:54] LABS: ALT (SGPT) 8 U/L (8-55); AST (SGOT) 15 U/L (5-34); Albumin 3.1 g/dL (3.4-4.8); Alkaline Phosphatase 63 U/L (40-110); Anion Gap 27 mmol/L (10-20); Bilirubin, Total 0.5 mg/dL (0.2-1.2); Calc. Creatinine Clearance 0 mL/min (70-130); Calcium 8.1 mg/dL (7.8-10.44); Carbon Dioxide 15 mmol/L (23-31); Chloride 104 mmol/L (98-107); Globulin 3.8 g/dL (2.4-3.5); Glucose 289 mg/dL (83-110); Protein, Total 6.9 g/dL (5.8-8.1); Sodium 140 mmol/L (136-145)
[2020-04-27 20:06] LABS: BUN (Urea Nitrogen) 113 mg/dL (8.4-25.7)
[2020-04-28 01:44] LABS: HBSAg Index 0.18 S/CO (0-0.99); Hep B Surf Ag Non-Reactive S/CO (NonReactive)
--- NOTE | 2020-04-28 04:27 | PDOC.HHP ---
Hospitalist [facility] Altered mental status History of Present Illness: This is an 89-year-old male patient with a history of ESRD on dialysis, who was transferred from [place] ED on account of altered mental status and GI bleed with hyperkalemia. Patient did miss his last schedule of dialysisalso noted GI bleed. He was sent to [place] for further evaluation. At [place] he was noted to be hyperkalemic with a potassium of 6.3. He was administered calcium gluconate and insulin and transferred here for higher level care. On reaching here, nephrology was consulted who agreed to do emergent dialysis. Chest x-ray showed a stable exam, CT abdomen and pelvis showed polycystic kidney disease with severe left hydronephrosis however stable from 2019. No gross GI tract findings was noted. I went to see the patient after dialysis. On seeing the patient he was in bed and had passed another bloody loose stool with clots. He was otherwise oriented to person and place but not time. He seemed not to be in acute distress. Gastric etiology had prior been notified of the GI bleed. Allergies/Adverse Reactions: Allergy/AdvReac Type Severity Reaction Status Date / Time No Known Drug Allergies Allergy Verified 06/02/19 19:46 Home Medications: Medication Instructions Recorded Confirmed Type Brimonidine Tartrate [Alphagan 1 drop EA EYE BID 08/17/18 05/02/20 History 0.2% Ophth Soln] Latanoprost [Latanoprost 0.05% 1 drop EA EYE BID 08/17/18 05/02/20 History Ophth] Dorzolamide HCl/Timolol Maleat 1 drop EA EYE BID 05/02/20 05/02/20 History [Dorzolamide HCl/Timolol Maleate Ophth] Multivitamin 1 each PO DAILY 05/02/20 05/02/20 History Cefdinir [Omnicef] 300 mg PO BID #14 cap 05/05/20 Rx Pantoprazole [Protonix] 40 mg PO DAILY #30 pk 05/05/20 Rx Past History: PMHx:ESRD PSHx:Fistula FHx:None of significance Social:No alcohol use, no smoking history Hospitalist HPI ROS ROS unobtainable: due to mental status Hospitalist Exam General Appearance: ill appearing General - other findings: Patient awake but not completely oriented, slightly confused Eye: anicteric sclera ENT: normocephalic atraumatic Heart: RRR, no murmur, no gallops, no rubs Extremities: no cyanosis, no clubbing, no edema Neurological: cranial nerve grossly intact, no weakness, no focal deficits Psychiatric: oriented to person, flat affect Hospitalist Results Result Diagrams: 05/05/20 05:32 05/04/20 05:12 Lab results: Laboratory Last Values WBC 9.3 thou/uL (4.8-10.8) 04/27/20 19:18 RBC 3.47 mill/uL (4.70-6.10) L 04/27/20 19:18 Hgb 10.4 g/dL (14.0-18.0) L 04/27/20 19:18 Hct 32.5 % (42.0-52.0) L 04/27/20 19:18 MCV 93.9 fL (78.0-98.0) 04/27/20 19:18 MCH 30.1 pg (27.0-31.0) 04/27/20 19:18 MCHC 32.0 g/dL (32.0-36.0) 04/27/20 19:18 RDW 15.2 % (11.5-14.5) H 04/27/20 19:18 Plt Count 151 thou/uL (130-400) 04/27/20 19:18 MPV 10.2 fL (7.4-10.4) 04/27/20 19:18 Neutrophils % 84.2 % (42.0-75.0) H 04/27/20 19:18 Lymphocytes % 7.1 % (21.0-51.0) L 04/27/20 19:18 Monocytes % 7.8 % (0.0-10.0) 04/27/20 19:18 Eosinophils % 0.5 % (0.0-10.0) 04/27/20 19:18 Basophils % 0.5 % (0.0-1.0) 04/27/20 19:18 Neutrophils # 7.8 thou/uL (1.40-6.50) H 04/27/20 19:18 Lymphocytes # 0.7 thou/uL (1.20-3.40) L 04/27/20 19:18 Monocytes # 0.7 thou/uL (0.11-0.59) H 04/27/20 19:18 Eosinophils # 0.0 thou/uL (0.0-0.7) 04/27/20 19:18 Basophils # 0.0 thou/uL (0.0-0.2) 04/27/20 19:18 PT 14.8 sec (12.0-14.7) H 04/27/20 19:18 INR 1.1 04/27/20 19:18 APTT 40.7 sec (22.9-36.1) H 04/27/20 19:18 Sodium 140 mmol/L (136-145) 04/27/20 19:18 Potassium 6.0 mmol/L (3.5-5.1) H 04/27/20 19:18 Chloride 104 mmol/L (98-107) 04/27/20 19:18 Carbon Dioxide 15 mmol/L (23-31) L 04/27/20 19:18 Anion Gap 27 mmol/L (10-20) H 04/27/20 19:18 BUN 113 mg/dL (8.4-25.7) H 04/27/20 19:18 Creatinine 8.54 mg/dL (0.7-1.3) H 04/27/20 19:18 Estimated GFR (MDRD) 7 04/27/20 19:18 Glucose 289 mg/dL (83-110) H 04/27/20 19:18 POC Glucose 251 mg/dL (70-100) H 04/27/20 18:29 Calcium 8.1 mg/dL (7.8-10.44) 04/27/20 19:18 Total Bilirubin 0.5 mg/dL (0.2-1.2) 04/27/20 19:18 AST 15 U/L (5-34) 04/27/20 19:18 ALT 8 U/L (8-55) 04/27/20 19:18 Alkaline Phosphatase 63 U/L (40-110) 04/27/20 19:18 Troponin I 0.021 ng/mL (< 0.028) 04/27/20 19:18 Serum Total Protein 6.9 g/dL (5.8-8.1) 04/27/20 19:18 Albumin 3.1 g/dL (3.4-4.8) L 04/27/20 19:18 Globulin 3.8 g/dL (2.4-3.5) H 04/27/20 19:18 Albumin/Globulin Ratio 0.8 g/dL (1.2-2.2) L 04/27/20 19:18 Hep Bs Antigen Non-Reactive S/CO (NonReactive) 04/27/20 21:27 Blood Type O NEGATIVE 04/27/20 19:18 Antibody Screen NEGATIVE 04/27/20 19:18 Hospitalist H&P A/P Plan: This is an 89-year-old male patient with a history of end-stage renal disease on dialysis , Hypertension, hyperlipidemia and coronary disease who was transferred from [place] on account of GI bleed and hyperkalemia Lower GI bleed Clear etiology Possible hemorrhoidal/diverticular bleeding Will need a colorectal cancer rule out as well. GI consultedappreciate input. Anemia secondary to bleed Hemoglobin 10.4 Monitor H&H Transfuse hemoglobin letter 7. ESRD Chest hemodialysis We will monitor. Hyperkalemia Dialysis We will monitor BMP Carotid artery disease Resume home meds once verified. CODE STATUS to be discussed. VT prophylaxisHeparin
[2020-04-28] MEDS ORDERED: Acetaminophen 325 MG TAB PO PRN (04:30)
[2020-04-28] MEDS ORDERED: Ondansetron PF 4 MG/2 ML Vial IVP PRN (04:30)
[2020-04-28] MEDS ORDERED: Ondansetron ODT 4 MG TAB SL PRN (04:30)
[2020-04-28] MEDS ORDERED: Sodium Chloride 0.9% 1,000 ML IV SCH (04:30)
[2020-04-28 05:23] LABS: #Lymphocytes 0.5 thou/uL (1.20-3.40); #Monocytes 0.6 thou/uL (0.11-0.59); #Neutrophils 4.9 thou/uL (1.40-6.50); %Basophils 0.1 % (0.0-1.0); %Eosinophils 0.5 % (0.0-10.0); %Lymphocytes 8.2 % (21.0-51.0); %Monocytes 10.4 % (0.0-10.0); %Neutrophils 80.7 % (42.0-75.0); Hemoglobin 9.3 g/dL (14.0-18.0); Mean Corpuscular Hemoglobin 30.9 pg (27.0-31.0); Mean Corpuscular Volume 93.7 fL (78.0-98.0); Mean Platelet Volume 9.8 fL (7.4-10.4); Platelet Count 124 thou/uL (130-400); RBC Distribution Width 15.1 % (11.5-14.5); Red Blood Cell (RBC) Count 3.01 mill/uL (4.70-6.10)
[2020-04-28 05:31] LABS: Potassium 4.5 mmol/L (3.5-5.1)
[2020-04-28 05:37] LABS: Anion Gap 17 mmol/L (10-20); BUN (Urea Nitrogen) 57 mg/dL (8.4-25.7); Calc. Creatinine Clearance 0 mL/min (70-130); Carbon Dioxide 25 mmol/L (23-31); Chloride 102 mmol/L (98-107); Glucose 81 mg/dL (83-110); Potassium 4.4 mmol/L (3.5-5.1); Sodium 140 mmol/L (136-145)
[2020-04-28 06:28] VITALS: BMI 22.9
[2020-04-28] MEDS ORDERED: Heparin 5,000 UNITS/ML VIAL SC SCH (09:00)
[2020-04-28] MEDS ORDERED: FLU VACC QS2020-21(65YR UP)/PF 240 MCG/0.7 ML SYRINGE IM ONE (09:00)
--- NOTE | 2020-04-28 17:00 | PDOC.EVN ---
Event Note - Event Note Event Note: The pateitn has no abd pain, nausea or vomiting. 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 Patient has extensive scope as an outpatient, per GI. Likely will not need another scope - will advance diet to clear liquids Glaucoma - continue eye drops
[2020-04-28 18:06] LABS: SARS-CoV-2 NAA Rapid Test Not Detected (NotDetected)
--- NOTE | 2020-04-28 18:57 | CON ---
DATE OF CONSULTATION: 04/28/2020 HISTORY OF PRESENT ILLNESS: Mr. Wynn is an 89-year-old man with history of end-stage renal disease, on maintenance hemodialysis, who was admitted overnight after being transferred from [place] [facility] for hyperkalemia and reported history of rectal bleeding and bloody stool. The patient cannot see very well and denies noticing any bleeding. He has had no nausea, vomiting, or abdominal pain. Since admission, he has had 2 episodes of small volume old dark bloody stool. Reportedly after hemodialysis yesterday, there was witness of a bloody stool with clots that appear to be more fresh. Currently, the patient is doing well with normal vitals. He has had extensive gastrointestinal evaluation over the years. The patient has a history of colon cancer many years ago and had a right hemicolectomy. Since that time, he has had chronic problem with anemia that was attributed to both iron deficiency, chronic disease, and of end-stage kidney disease. He has had upper endoscopy and colonoscopy in 04/2018. Colonoscopy at that time showed polyps that were removed in addition to extensive sigmoid diverticulosis. Further evaluation includes capsule study of the small bowel that was done in 04/2019, that was negative for any source of bleeding. PAST MEDICAL HISTORY: 1. GE reflux disease. 2. Hypertension previously. 3. Chronic anemia. 4. Colon cancer. 5. Status post right hemicolectomy. 6. Status post TURP. ALLERGIES: NONE. MEDICATIONS: At home include eye drops. SOCIAL HISTORY: Negative for smoking, tobacco usage, or alcohol usage. FAMILY HISTORY: Mother with brain cancer. Otherwise, negative for GI problem, liver disease, or GI malignancy. REVIEW OF SYSTEMS: Ten-point review of systems did not show any other reported symptoms other than listed above. PHYSICAL EXAMINATION: VITAL SIGNS: Temperature is 97.5, blood pressure 139/73, and pulse of 73. GENERAL: He is alert and conversant. Does not appear in any distress. HEENT: Shows anicteric sclerae. Oropharynx shows poor dentition. CV: Shows normal S1 and S2. Regular rate and rhythm. CHEST: Shows a breath sounds. ABDOMEN: Soft and flat. No distention. No tympany. He has active bowel sounds. No tenderness. RECTAL: Did not show any hemorrhoids. There is old dark stool in rectal vault without any fresh blood. EXTREMITIES: Show no edema. LABORATORY DATA: WBC 6.0; hemoglobin 9.3, down from 10.4 yesterday. Looking back at the chart, he has had previous anemia down to as low as 5.8. INR 1.1. Electrolytes within normal range. Creatinine 4.94, glucose of 81. ASSESSMENT: 1. Hematochezia, characterized as bloody stool with clots with only 2 episodes of old blood without fresh hemorrhage today. Colonoscopy performed in 04/2018 showed sigmoid diverticulosis. I suspect his bleeding is diverticular in origin, which appears to have stopped. 2. Chronic recurrent anemia with negative GI tract evaluation with upper endoscopy and colonoscopy in 04/2018 and small bowel capsule in 04/2019. Anemia is multifactorial. 3. End-stage renal disease, on hemodialysis. 4. Glaucoma. RECOMMENDATIONS: 1. We will advance to clear liquids tonight and advanced in a.m. to a regular diet. 2. Continue to monitor blood count. 3. No plan for any endoscopic intervention at the present time as bleeding appears to have stopped. 4. We will follow. Job ID: [id number]
[2020-04-28] MEDS ORDERED: Pantoprazole 40 MG VIAL IVP SCH (21:00)
[2020-04-29 05:17] LABS: #Eosinphils 0.1 thou/uL (0.0-0.7); #Lymphocytes 0.7 thou/uL (1.20-3.40); #Monocytes 0.6 thou/uL (0.11-0.59); #Neutrophils 2.7 thou/uL (1.40-6.50); %Basophils 0.2 % (0.0-1.0); %Eosinophils 1.9 % (0.0-10.0); %Lymphocytes 16.8 % (21.0-51.0); %Neutrophils 67.1 % (42.0-75.0); ALT (SGPT) 8 U/L (8-55); AST (SGOT) 21 U/L (5-34); Albumin 2.7 g/dL (3.4-4.8); Alkaline Phosphatase 49 U/L (40-110); Anion Gap 18 mmol/L (10-20); BUN (Urea Nitrogen) 76 mg/dL (8.4-25.7); Bilirubin, Total 0.5 mg/dL (0.2-1.2); Calc. Creatinine Clearance 9 mL/min (70-130); Calcium 7.9 mg/dL (7.8-10.44); Carbon Dioxide 21 mmol/L (23-31); Chloride 105 mmol/L (98-107); Globulin 3.4 g/dL (2.4-3.5); Glucose 69 mg/dL (83-110); Hemoglobin 7.7 g/dL (14.0-18.0); Mean Corpuscular HGB CONC 31.2 g/dL (32.0-36.0); Mean Corpuscular Hemoglobin 29.3 pg (27.0-31.0); Mean Corpuscular Volume 93.9 fL (78.0-98.0); Mean Platelet Volume 9.6 fL (7.4-10.4); Platelet Count 105 thou/uL (130-400); Protein, Total 6.1 g/dL (5.8-8.1); RBC Distribution Width 15.1 % (11.5-14.5); Red Blood Cell (RBC) Count 2.63 mill/uL (4.70-6.10); Sodium 139 mmol/L (136-145)
[2020-04-29] MEDS: Pantoprazole 80 MG in Sodium Chloride 0.9% 100 ML IVP SCH (06:18)
--- NOTE | 2020-04-29 14:53 | PDOC.HOSPP ---
- Subjective Encounter Date: 04/29/20 Encounter Time: 08:00 Subjective: F/u: GI Bleed The patient has no abd pain. He is unsure whether had bloody stool or not, but hemoglobin dropped to 7. He was placed on clear liquid diet yesterday but stated he had not eaten or drank anything since yesterday morning and he was very hungry. [place] juice given after speaking with Dr. Anand - Objective Vital Signs & Weight: Vital Signs (12 hours) Temp Pulse Resp BP Pulse Ox 04/29/20 12:36 99.2 F 79 21 H 151/64 H 97 04/29/20 08:40 97.7 F 78 18 128/57 L 99 04/29/20 04:00 97.6 F 76 16 116/66 100 Weight Weight 160 lb 0.889 oz I&O: 04/28/20 04/29/20 04/30/20 06:59 06:59 06:59 Intake Total 1060 60 Balance 1060 60 Result Diagrams: 04/29/20 04:47 04/29/20 04:47 Hospitalist ROS - Review of Systems Constitutional: denies: fever, chills - Medication Medications: Active Medications Generic Name Dose Route Start Last Admin Trade Name Freq PRN Reason Stop Dose Admin Pantoprazole Sodium 80 mg/ 100 mls @ 10 mls/hr 04/29/20 04:30 04/29/20 06:18 Sodium Chloride IVP 100 mls INF KAITY Administration Hospitalist Exam Vitals: Vital Signs (12 hours) Temp Pulse Resp BP Pulse Ox 04/29/20 12:36 99.2 F 79 21 H 151/64 H 97 04/29/20 08:40 97.7 F 78 18 128/57 L 99 04/29/20 04:00 97.6 F 76 16 116/66 100 Weight Weight 160 lb 0.889 oz General Appearance: NAD, awake alert General - other findings: patient blind in eye Eye: PERRL, anicteric sclera ENT: normocephalic atraumatic, no oropharyngeal lesions Neck: no JVD Heart: RRR, no murmur, no gallops Respiratory: CTAB, no wheezes, no rales, no ronchi Gastrointestinal: soft, non-tender, non-distended, normal bowel sounds Extremities: no cyanosis, no clubbing, no edema Skin: normal turgor, no lesions, no rashes Hosp A/P - Plan This is an 89 year old male who was brought to the hospital by family for concern for GI bleeding Acute GI bleed- possibly diverticular - continue protonix. Hb dropped to 7. Awaiting GI recommendation regarding need for repeat endoscopy versus tagged scan Glaucoma - continue eye drops
--- NOTE | 2020-04-29 17:45 | PRG ---
DATE OF SERVICE: 04/29/2020 SUBJECTIVE: Mr. Wynn had one bowel this morning. Nurse notes it is mainly old blood. He has had none since then. He has tolerated some clear liquids. His IV came out. He really cannot communicate much. He is on Protonix drip. OBJECTIVE: VITAL SIGNS: Temperature 99.2, pulse 79, blood pressure 151/64. GENERAL: He is cachectic, thin with contractures. He is in no distress. LABORATORY DATA: White count 4. Hemoglobin 7.7, it ranges anywhere from 6 to 10 typically, it was 10.4 on admission. Platelets 105. BUN and creatinine are 76 and 6.27. Sodium 139, potassium 5. Liver function tests normal. ASSESSMENT: 1. Gastrointestinal bleed, presently stable, likely diverticular. Recent colonoscopy in 04/2018 showed diverticular disease. He had upper endoscopy in 04/2018 as well and a capsule endoscopy in 04/2019, all which were normal. 2. Anemia, multifactorial. He is not far off from his baseline. RECOMMENDATIONS: [place]. I would get an IV back in him just in case he has overt hemorrhage, we have something to resuscitate him with. At this point in time, we would not recommend a repeat endoscopy. Job ID: [id number]
[2020-04-30] MEDS: Pantoprazole 80 MG in Sodium Chloride 0.9% 100 ML IVP SCH (03:27)
[2020-04-30 05:30] LABS: Anion Gap 19 mmol/L (10-20); BUN (Urea Nitrogen) 95 mg/dL (8.4-25.7); Calc. Creatinine Clearance 7 mL/min (70-130); Calcium 7.8 mg/dL (7.8-10.44); Carbon Dioxide 20 mmol/L (23-31); Chloride 105 mmol/L (98-107); Glucose 69 mg/dL (83-110); Potassium 5.4 mmol/L (3.5-5.1); Sodium 139 mmol/L (136-145)
[2020-04-30 05:47] LABS: Band 2 % (5-11); Hypochromia SLIGHT = 6-15 cells (100X) (0-5/hpf); Lymphocytes 16 % (21-51); MDiff Complete? YES; Mean Corpuscular HGB CONC 32.6 g/dL (32.0-36.0); Mean Corpuscular Hemoglobin 30.6 pg (27.0-31.0); Mean Platelet Volume 10.2 fL (7.4-10.4); Monocytes 9 % (0-10); Neutrophil 73 % (42-75); Platelet Count 112 thou/uL (130-400); Platelet Morphology Comment Appears Adequate; RBC Distribution Width 15.1 % (11.5-14.5); White Blood Cell (WBC) Count 3.6 thou/uL (4.8-10.8)
[2020-04-30] MEDS ORDERED: Lorazepam 0.5 MG TAB PO PRN (11:03)
--- NOTE | 2020-04-30 13:04 | PDOC.HOSPP ---
- Subjective Encounter Date: 04/30/20 Encounter Time: 11:00 Subjective: Fu: GI bleed Patient had three bloody stool last night, plus two this am . He had another after his tagged RBC. Hemoglobin downtrending - Objective Vital Signs & Weight: Vital Signs (12 hours) Temp Pulse Resp BP Pulse Ox 04/30/20 08:00 97.8 F 73 16 147/77 H 98 04/30/20 04:00 97.6 F 70 17 167/93 H 99 Weight Weight 160 lb 0.889 oz I&O: 04/29/20 04/30/20 05/01/20 06:59 06:59 06:59 Intake Total 1060 1480 Balance 1060 1480 Result Diagrams: 04/30/20 04:55 04/30/20 04:55 Additional Labs: Accuchecks 04/30/20 11:26 POC Glucose 98 Hospitalist ROS - Review of Systems Constitutional: denies: fever, chills - Medication Medications: Active Medications Generic Name Dose Route Start Last Admin Trade Name Freq PRN Reason Stop Dose Admin Pantoprazole Sodium 80 mg/ 100 mls @ 10 mls/hr 04/29/20 04:30 04/30/20 03:27 Sodium Chloride IVP 100 mls INF KAITY Administration Lorazepam 0.5 mg 04/30/20 11:03 04/30/20 11:35 Lorazepam 0.5 Mg Tab PO 0.5 mg Q4H PRN Administration Anxiety Hospitalist Exam Vitals: Vital Signs (12 hours) Temp Pulse Resp BP Pulse Ox 04/30/20 08:00 97.8 F 73 16 147/77 H 98 04/30/20 04:00 97.6 F 70 17 167/93 H 99 Weight Weight 160 lb 0.889 oz General Appearance: NAD, awake alert Eye: PERRL, anicteric sclera ENT: normocephalic atraumatic, no oropharyngeal lesions Neck: supple, symmetric, no JVD Heart: RRR, no murmur, no gallops, no rubs Respiratory: CTAB, no wheezes, no rales, no ronchi Gastrointestinal: soft, non-tender, non-distended, normal bowel sounds Extremities: no cyanosis, no clubbing, no edema Skin: normal turgor, no lesions, no rashes Neurological: cranial nerve grossly intact, normal sensation to touch, no weakness Musculoskeletal: normal tone, normal strength, no muscle wasting Psychiatric: normal affect, normal behavior, A&O x 3, oriented to person Hosp A/P - Plan Tagged RBC scan: active bleeding right lower quadrant of colon This is an 89 year old male who was brought to the hospital by family with black stool with concern for GI bleeding Acute GI bleed- possibly diverticular - continue protonix drip. . Hb dropped to 7. He is getting transfused since he is still actively bleeding. Tagged RBC scan shows active bleeding in RLQ - discussed with GI , consented for colonoscopy and may do EGD as well tomorrow. Patient is agreeable, consent obtained from son Hyperkalemia - potassium 5.4, repeat BMP after dialysis ESRD - continue scheduled dialysis M,W, F Glaucoma - continue eye drops
--- NOTE | 2020-04-30 15:28 | NM ---
RADIONUCLIDE GI BLEEDING SCAN: 04/30/20 HISTORY: Lower GI bleed. Dark bloody stool at 8:47 this morning. RADIOPHARMACEUTICAL: 26.3 millicuries technetium 99m labeled RBCs injected intravenously. FINDINGS: There is focal area of tracer localization in the right lower quadrant at about 47 minutes post inje ction with increased intensity and movement on subsequent imaging. This is most likely in the sigmoid colon. IMPRESSION: Findings suggestive of active GI bleed in the right lower quadrant likely in the sigmoid colon. Discussed over the telephone with Dr. Adis Maloney at 2:40 p.m. POS: OFF
[2020-04-30] MEDS ORDERED: GoLYTELY 4,000 ml Bottle PO SCH (18:00)
[2020-04-30] MEDS ORDERED: Sodium Chloride 0.9% (PF) 10 ML VIAL FS PRN (18:00)
--- NOTE | 2020-04-30 18:12 | PRG ---
DATE OF SERVICE: 04/30/2020 SUBJECTIVE: Mr. Wynn is without complaints. He is on dialysis. He states he does not hurt. He does note he has been bleeding, but the nurses indicate that he had three maroon stools last night, fairly large size, and one early this morning. His hemoglobin dropped down to a 7.7, had been 10.4 on the 16. Tagged scan today showed some bleeding, which is felt to be in the sigmoid colon per Radiology. Subsequent to that, he had another bloody stool and received 1 unit of blood on dialysis today. Post transfusion H and H is not performed yet. He remained stable throughout the day. MEDICATIONS: 1. Protonix. 2. Seroquel. PHYSICAL EXAMINATION: VITAL SIGNS: Blood pressure 158/82, respirations 20, pulse 80, temperature 97. GENERAL: He is thin. He is alert and oriented. He is in no distress. He asked me when he is going to eat again and when I told him after the colonoscopy, he just laughed. talked to his [id number] and son about the findings of his bleeding scan. ABDOMEN: Soft, nontender with no rebound or guarding. LABORATORY STUDIES: White count 6.3, hemoglobin 7, platelet count 112. INR was 1.1 on the 16. Sodium 139, potassium 5.4, BUN and creatinine 95 and 7.29 today. ASSESSMENT: Ongoing bleeding. The nurses said this is dark but maroon at times. He has had diverticular bleeding in the past but with his increasing BUN, I wonder about upper GI bleeding source. We will plan For a colonoscopy. If this is negative and there is significant melena, we will consider EGD at the same time. The patient wished to proceed with this in light of his ongoing bleeding, and the family does as well. I have talked with the son and [id number] via the phone today and explained the rationale behind what we were doing well. Monitor H and H q.12 hours. Asked the nurses to call me if he has acute bleeding or hemodynamic instability. Case discussed also with Dr. Rust, the patient's hospitalist. Job ID: [id number]
[2020-04-30 18:13] LABS: Hemoglobin 6.7 g/dL (14.0-18.0)
[2020-04-30 18:37] LABS: Anion Gap 14 mmol/L (10-20); BUN (Urea Nitrogen) 46 mg/dL (8.4-25.7); Calc. Creatinine Clearance 15 mL/min (70-130); Carbon Dioxide 28 mmol/L (23-31); Chloride 102 mmol/L (98-107); Glucose 86 mg/dL (83-110); Potassium 4.2 mmol/L (3.5-5.1); Sodium 140 mmol/L (136-145)
[2020-04-30] MEDS: Pantoprazole 40 MG VIAL IVP SCH (20:53)
[2020-05-01] MEDS: Pantoprazole 40 MG VIAL IVP SCH ×2 (00:26→10:26)
[2020-05-01 02:24] LABS: Hemoglobin 7.5 g/dL (14.0-18.0); Mean Corpuscular HGB CONC 32.9 g/dL (32.0-36.0); Mean Corpuscular Hemoglobin 30.4 pg (27.0-31.0); Mean Corpuscular Volume 92.5 fL (78.0-98.0); Mean Platelet Volume 9.7 fL (7.4-10.4); Platelet Count 131 thou/uL (130-400); Red Blood Cell (RBC) Count 2.45 mill/uL (4.70-6.10); White Blood Cell (WBC) Count 3.7 thou/uL (4.8-10.8)
[2020-05-01 02:46] LABS: Calc. Creatinine Clearance 14 mL/min (70-130); Potassium 4.3 mmol/L (3.5-5.1)
--- NOTE | 2020-05-01 07:48 | PDOC.HOSPP ---
- Subjective Encounter Date: 05/01/20 (f/u GI bleed) Encounter Time: 07:46 Subjective: 89 y/o male with ESRD admitted for GI bleed. Pt is without complaints this morning - denies any pain. He thought he was at home. RN reports 2 dark stools overnight. - Objective Vital Signs & Weight: Vital Signs (12 hours) Temp Pulse Resp BP Pulse Ox 05/01/20 04:30 98.2 F 82 16 137/76 100 05/01/20 00:20 97.7 F 88 18 126/75 100 04/30/20 20:45 97.3 F L 100 24 H 118/58 L 97 Weight Weight 160 lb 0.889 oz I&O: 04/30/20 05/01/20 05/02/20 06:59 06:59 06:59 Intake Total 1480 350 Balance 1480 350 Result Diagrams: 05/01/20 07:18 05/01/20 02:14 Additional Labs: Accuchecks 04/30/20 11:26 POC Glucose 98 EKG Reviewed by me: Yes (tele - sinus 60-80;s with pac/pvc) Hospitalist ROS - Medication Medications: Active Medications Generic Name Dose Route Start Last Admin Trade Name Freq PRN Reason Stop Dose Admin Lorazepam 0.5 mg 04/30/20 11:03 04/30/20 11:35 Lorazepam 0.5 Mg Tab PO 0.5 mg Q4H PRN Administration Anxiety Pantoprazole Sodium 40 mg 04/30/20 21:00 05/01/20 00:26 Pantoprazole 40 Mg Vial IVP 40 mg Q12HR KAITY Administration Sodium Chloride 10 ml 04/30/20 21:00 04/30/20 20:53 Flush - Normal Saline 10 Ml Syringe IVF 10 ml Q12HR KAITY Administration Sodium Chloride 10 ml 04/30/20 18:00 05/01/20 00:26 Sodium Chloride 0.9% (Pf) 10 Ml Vial FS 10 ml PRN PRN Administration RECONSTITUTION Hospitalist Exam Vitals: Vital Signs (12 hours) Temp Pulse Resp BP Pulse Ox 05/01/20 04:30 98.2 F 82 16 137/76 100 05/01/20 00:20 97.7 F 88 18 126/75 100 04/30/20 20:45 97.3 F L 100 24 H 118/58 L 97 Weight Weight 160 lb 0.889 oz General Appearance: NAD General - other findings: cachectic appearing male Heart: RRR, no murmur Respiratory: no wheezes, no rales, no ronchi Gastrointestinal: soft, non-tender, non-distended Extremities: no cyanosis, no clubbing, no edema Psychiatric: normal affect Hosp A/P (1) GI bleed Code(s): K92.2 - GASTROINTESTINAL HEMORRHAGE, UNSPECIFIED Status: Acute Qualifiers: GI bleed type/associated pathology: unspecified gastrointestinal hemorrhage type Qualified Code(s): K92.2 - Gastrointestinal hemorrhage, unspecified (2) ESRD (end stage renal disease) on dialysis Code(s): N18.6 - END STAGE RENAL DISEASE; Z99.2 - DEPENDENCE ON RENAL DIALYSIS Status: Chronic (3) Leukopenia Code(s): D72.819 - DECREASED WHITE BLOOD CELL COUNT, UNSPECIFIED Status: Acute (4) Anemia Code(s): D64.9 - ANEMIA, UNSPECIFIED Status: Acute Qualifiers: Anemia type: other cause (5) Glaucoma Code(s): H40.9 - UNSPECIFIED GLAUCOMA Status: Chronic Qualifiers: Glaucoma type: unspecified Laterality: bilateral Qualified Code(s): H40.9 - Unspecified glaucoma - Plan Acute GI bleed- appreciate GI consult Was on a protonix gtt, changed to BID IV protonix and s/p 1 unit of prbc. - plan for colonoscopy and possible EGD if pt able to complete the bowel prep - monitor h/h Hyperkalemia - resolved - appreciate Nephro consult ESRD - continue scheduled dialysis M,W, F Glaucoma - continue eye drops when reconcilled - placed a request to RN DVT prophy - scd's GI prophy - on therapeutic protonix code status - full reviewed plan of care with patient/RN, no questions or further needs at end of eval.
[2020-05-01] MEDS ORDERED: PHENYLEPHRINE-NS 100 MCG/ML 10 ML SYRINGE ONE (09:20)
[2020-05-01] MEDS ORDERED: PROPOFOL 200 MG/20 ML VIAL ONE (09:20)
[2020-05-01] MEDS ORDERED: Ketamine 50 MG/ML (10ML VIAL) ONE (13:35)
[2020-05-01] MEDS ORDERED: Promethazine HCl 25 MG/ML VIAL SLOW IVP PRN (15:18)
[2020-05-01] MEDS ORDERED: Promethazine HCl 25 MG/ML VIAL IM PRN (15:18)
[2020-05-01] MEDS ORDERED: Ondansetron HCl/PF 4 MG/2 ML Vial IVP PRN (15:18)
--- NOTE | 2020-05-01 15:55 | EKG ---
Test Reason : Blood Pressure : / mmHG Vent. Rate : 082 BPM Atrial Rate : 082 BPM P-R Int : 150 ms QRS Dur : 084 ms QT Int : 392 ms P-R-T Axes : 096 -09 081 degrees QTc Int : 457 ms Normal sinus rhythm Nonspecific T wave abnormality Abnormal ECG Confirmed by CALVIN WOODS ([id number]), assistant editor NUHA SCHNEIDER ([id number]) on 05/01/2020 3:55:14 PM Referred By: Confirmed By:CALVIN WOODS
--- NOTE | 2020-05-01 16:40 | OP ---
DATE OF PROCEDURE: 05/01/2020 PROCEDURES PERFORMED: Esophagogastroduodenoscopy and flexible sigmoidoscopy. PREOPERATIVE DIAGNOSES: 1. Recurrent bleeding with melena and bright red blood per rectum. 2. The patient refused to take prep last night. 3. Transfusion requirements this admission 1 unit with hemoglobin now 7.5 to 8. POSTOPERATIVE DIAGNOSES: 1. Duodenitis, biopsied. 2. Hiatal hernia. No stigmata of bleeding. 3. Diffuse diverticular disease, formed stool encountered in the transverse colon, a little bit of old blood in the sigmoid colon, but no active bleeding was identified and no specific diverticular source could be identified or arteriovenous malformation could be seen. 4. Small ulcer in the rectum associated with hemorrhoids, soft and likely benign, possibly related to enemas, possibly source of bleeding. RECOMMENDATIONS: 1. PPI. 2. The patient is to be on a daily fiber supplement. 3. Anusol suppositories. ANESTHESIA: TIVA. DESCRIPTION OF PROCEDURE: The patient's family was informed of the risks, benefits, and possible complications of endoscopy. They wanted to proceed and with his ongoing bleeding, we went ahead and did that. He had a prior history of duodenal AVMs. We performed upper endoscopy as well. Once the patient was sedated, a bite block was placed inside the orifice. The endoscope was advanced into esophagus, stomach, and the second and third portion of the duodenum. The esophagus was normal except for about a 3 cm sliding-type hiatal hernia with no erosions. There was no evidence of Hemal's ulcers. The stomach was entered and normal in forward and retroflexed views with normal distention. The duodenal bulb was entered and normal. There was mild nodularity in the posterior wall of the apex of the bulb going to the second portion, could not identify distinct ulcer here. There were no clots. There was yellow bile. I did biopsy this full and then it was soft. The duodenum to the third portion was normal. The scope was removed. The patient was turned to the room and rectal examination was performed revealing large internal and external hemorrhoids. No stigmata of acute bleeding. The endoscope was slowly advanced into the colon, where we had to stop at the transverse as there was formed stool encountered. The prep was very poor. Diverticula were noted in the entire colon visualized, diffuse, enlarged, and small. There was a little bit of old maroon blood, maybe 2 or 3 mL in the mid sigmoid region. This was irrigated vigorously. We cleared the area of stool in that blood and could not find an acute bleeding source of visible vessel or diverticula that may have bled. There was so much hypertrophy of the folds that it was difficult to identify the bases of the diverticula. The scope was further brought back in the rectum. There was a small ulcer nonbleeding just above the dentate line. This has a benign appearance. Mucosa around it was soft. I think this was prior from trauma from his enemas. Retroflexed views were normal. The scope was removed. The area was again palpated digitally and then with it being soft and smooth, we concluded the exam, did not biopsy the area. Job ID: [id number]
[2020-05-01 18:00] LABS: Hemoglobin 7.5 g/dL (14.0-18.0)
[2020-05-01] MEDS: Hydrocortisone Acetate 25 MG Suppository PR SCH (20:42)
[2020-05-02 05:54] LABS: #Eosinphils 0.1 thou/uL (0.0-0.7); #Lymphocytes 0.6 thou/uL (1.20-3.40); #Monocytes 0.4 thou/uL (0.11-0.59); #Neutrophils 3.6 thou/uL (1.40-6.50); %Basophils 0.3 % (0.0-1.0); %Monocytes 8.4 % (0.0-10.0); %Neutrophils 76.4 % (42.0-75.0); Hemoglobin 7.3 g/dL (14.0-18.0); Mean Corpuscular HGB CONC 32.8 g/dL (32.0-36.0); Mean Corpuscular Hemoglobin 30.6 pg (27.0-31.0); Mean Corpuscular Volume 93.2 fL (78.0-98.0); Mean Platelet Volume 8.6 fL (7.4-10.4); Platelet Count 140 thou/uL (130-400); RBC Distribution Width 14.6 % (11.5-14.5); Red Blood Cell (RBC) Count 2.38 mill/uL (4.70-6.10); White Blood Cell (WBC) Count 4.7 thou/uL (4.8-10.8)
[2020-05-02 06:15] LABS: Anion Gap 17 mmol/L (10-20); BUN (Urea Nitrogen) 48 mg/dL (8.4-25.7); Calc. Creatinine Clearance 7 mL/min (70-130); Calcium 7.6 mg/dL (7.8-10.44); Carbon Dioxide 24 mmol/L (23-31); Chloride 101 mmol/L (98-107); Glucose 66 mg/dL (83-110); Potassium 4.4 mmol/L (3.5-5.1); Sodium 138 mmol/L (136-145)
[2020-05-02 07:03] LABS: Bacteria/HPF 4+ HPF (None Seen); Bilirubin Negative (Negative); Blood, Urine 3+ (Negative); Clarity Extra Turbid (Clear); Glucose, Urine (Dipstick) Normal (Negative); Ketone, Urine Negative (Negative); Leukocyte 500 Leu/uL (Negative); Nitrite Negative (Negative); Protein, Urine (Dipstick) 600 mg/dL (Neg-Trace); RBC/HPF 21-50 HPF (0-3); Specific Gravity, Urine 1.011 (1.002-1.036); Squamous Epithelial None Seen HPF (0-3); Urobilinogen Normal mg/dL (Less than 2); WBC/HPF Greater than 50 HPF (0-3); pH, Urine 7.5 (5.0-9.0)
[2020-05-02 07:04] LABS: Urine Culture Reflex Yes Yes
[2020-05-02] MEDS: Pantoprazole 40 MG VIAL IVP SCH (09:30)
--- NOTE | 2020-05-02 10:25 | PDOC.HOSPP ---
- Subjective Encounter Date: 05/02/20 (f/u GI bleed) Encounter Time: 10:24 Subjective: Pt denies any pain or problems. He is asking when he can go home and go back to work. He also reports he is hungry - is on a liquid diet. No overnight events. s/p EGD yesterday with duodenitis and small rectal ulcer, as well as diverticulosis and some old blood identified in the colon. - Objective Vital Signs & Weight: Vital Signs (12 hours) Temp Pulse Resp BP Pulse Ox 05/02/20 08:00 98.2 F 70 20 134/72 98 05/02/20 04:00 98.0 F 71 18 135/75 100 Weight Weight 124 lb 5.451 oz I&O: 05/01/20 05/02/20 05/03/20 06:59 06:59 06:59 Intake Total 1210 860 Output Total 50 Balance 1210 810 Result Diagrams: 05/02/20 05:47 05/02/20 05:47 EKG Reviewed by me: Yes (tele - sinus 60-80's) Hospitalist ROS - Medication Medications: Active Medications Generic Name Dose Route Start Last Admin Trade Name Freq PRN Reason Stop Dose Admin Hydrocortisone Acetate 25 mg 05/01/20 21:00 05/01/20 20:42 Hydrocortisone Acetate 25 Mg Suppository SC 05/06/20 21:01 25 mg HS KAITY Administration Lorazepam 0.5 mg 04/30/20 11:03 04/30/20 11:35 Lorazepam 0.5 Mg Tab PO 0.5 mg Q4H PRN Administration Anxiety Pantoprazole Sodium 40 mg 05/02/20 09:00 05/02/20 09:30 Pantoprazole 40 Mg Vial IVP 40 mg DAILY KAITY Administration Sodium Chloride 10 ml 04/30/20 21:00 05/02/20 09:29 Flush - Normal Saline 10 Ml Syringe IVF 10 ml Q12HR KAITY Administration Sodium Chloride 10 ml 04/30/20 18:00 05/01/20 00:26 Sodium Chloride 0.9% (Pf) 10 Ml Vial FS 10 ml PRN PRN Administration RECONSTITUTION Hospitalist Exam Vitals: Vital Signs (12 hours) Temp Pulse Resp BP Pulse Ox 05/02/20 08:00 98.2 F 70 20 134/72 98 02/21/21 04:00 98.0 F 71 18 135/75 100 Weight Weight 124 lb 5.451 oz General Appearance: NAD General - other findings: cachectic male Heart: RRR, no murmur Respiratory: CTAB, no wheezes, no rales, no ronchi Gastrointestinal: soft, non-tender, non-distended, normal bowel sounds Extremities: no cyanosis, no clubbing, no edema Psychiatric: normal affect Hosp A/P (1) GI bleed Code(s): K92.2 - GASTROINTESTINAL HEMORRHAGE, UNSPECIFIED Status: Acute Qualifiers: GI bleed type/associated pathology: unspecified gastrointestinal hemorrhage type Qualified Code(s): K92.2 - Gastrointestinal hemorrhage, unspecified (2) ESRD (end stage renal disease) on dialysis Code(s): N18.6 - END STAGE RENAL DISEASE; Z99.2 - DEPENDENCE ON RENAL DIALYSIS Status: Chronic (3) Leukopenia Code(s): D72.819 - DECREASED WHITE BLOOD CELL COUNT, UNSPECIFIED Status: Acute (4) Anemia Code(s): D64.9 - ANEMIA, UNSPECIFIED Status: Acute Qualifiers: Anemia type: other cause (5) Glaucoma Code(s): H40.9 - UNSPECIFIED GLAUCOMA Status: Chronic Qualifiers: Glaucoma type: unspecified Laterality: bilateral Qualified Code(s): H40.9 - Unspecified glaucoma (6) Duodenitis Code(s): K29.80 - DUODENITIS WITHOUT BLEEDING Status: Acute - Plan Acute GI bleed- appreciate GI consult Was on a protonix gtt, changed to BID IV protonix and s/p 1 unit of prbc. EGD with duodenitis and Colonoscopy with diverticula and rectal ulcer. - continue IV protonix - advance diet per GI Hyperkalemia - resolved - appreciate Nephro consult ESRD - continue scheduled dialysis M,W, F Cachexia - Social Work Coordinator consult PT/OT consult Anticipate pt will need transition to home care - such as SNF. Case management consult placed. Glaucoma - continue eye drops when reconcilled - placed a request to RN DVT prophy - scd's GI prophy - on therapeutic protonix code status - full reviewed plan of care with patient/RN, no questions or further needs at end of eval.
--- NOTE | 2020-05-02 14:09 | PRG ---
DATE OF SERVICE: 05/02/2020 SUBJECTIVE: Mr. Wynn is lying in bed. He has no complaints. He has a dry mouth. His abdomen is soft, nontender. Nurse has noted just some dark stools, but no blood. OBJECTIVE: VITAL SIGNS: Temperature is 97, pulse 69, blood pressure 119/66. ABDOMEN: Soft, nontender, nondistended. LABORATORY DATA: Hemoglobin is 7.3 and stable, white count 4.7, platelets 140. ASSESSMENT: Gastrointestinal hemorrhage, likely diverticular. No active bleeding at the time of endoscopy. There was some nodular mucosa in the duodenum. I biopsied to make sure it was not malignancy, but it was very soft. I think that will be benign. RECOMMENDATIONS: 1. Advance diet as tolerated. 2. Do not use heparin on dialysis. 3. Monitor H and H. Job ID: [id number]
[2020-05-02] MEDS: Hydrocortisone Acetate 25 MG Suppository PR SCH (20:13)
[2020-05-02] MEDS: Brimonidine Tartrate 0.2% Ophth Soln 5 ml Bottle EA EYE SCH (20:18)
[2020-05-02] MEDS: Latanoprost 0.005% Ophth Soln 2.5 ml Bottle EA EYE SCH (20:20)
[2020-05-02] MEDS: DorzolamidE/Timolol 2%/0.5% Ophth Soln 10 ml Bottle EA EYE SCH (20:21)
[2020-05-03 05:26] LABS: #Eosinphils 0.2 thou/uL (0.0-0.7); #Lymphocytes 0.7 thou/uL (1.20-3.40); #Monocytes 0.4 thou/uL (0.11-0.59); #Neutrophils 1.7 thou/uL (1.40-6.50); %Basophils 0.2 % (0.0-1.0); %Eosinophils 7.9 % (0.0-10.0); %Lymphocytes 24.2 % (21.0-51.0); %Monocytes 12.5 % (0.0-10.0); %Neutrophils 55.1 % (42.0-75.0); Hemoglobin 7.1 g/dL (14.0-18.0); Mean Corpuscular HGB CONC 32.5 g/dL (32.0-36.0); Mean Corpuscular Hemoglobin 30.5 pg (27.0-31.0); Mean Corpuscular Volume 93.9 fL (78.0-98.0); Mean Platelet Volume 8.4 fL (7.4-10.4); Platelet Count 160 thou/uL (130-400); RBC Distribution Width 14.4 % (11.5-14.5); Red Blood Cell (RBC) Count 2.32 mill/uL (4.70-6.10); White Blood Cell (WBC) Count 3.1 thou/uL (4.8-10.8)
[2020-05-03 05:43] LABS: Anion Gap 20 mmol/L (10-20); BUN (Urea Nitrogen) 53 mg/dL (8.4-25.7); Calc. Creatinine Clearance 6 mL/min (70-130); Calcium 7.6 mg/dL (7.8-10.44); Carbon Dioxide 22 mmol/L (23-31); Chloride 101 mmol/L (98-107); Glucose 62 mg/dL (83-110); Potassium 4.6 mmol/L (3.5-5.1); Sodium 138 mmol/L (136-145)
[2020-05-03] MEDS: Latanoprost 0.005% Ophth Soln 2.5 ml Bottle EA EYE SCH ×2 (08:11→22:23)
[2020-05-03] MEDS: Brimonidine Tartrate 0.2% Ophth Soln 5 ml Bottle EA EYE SCH ×2 (08:11→22:22)
[2020-05-03] MEDS: Pantoprazole 40 MG VIAL IVP SCH (08:11)
[2020-05-03] MEDS: DorzolamidE/Timolol 2%/0.5% Ophth Soln 10 ml Bottle EA EYE SCH ×2 (08:12→22:23)
--- NOTE | 2020-05-03 13:16 | PDOC.HOSPP ---
- Subjective Encounter Date: 05/03/20 Encounter Time: 13:15 Subjective: calm, no distress - Objective Vital Signs & Weight: Vital Signs (12 hours) Temp Pulse Resp BP Pulse Ox 05/03/20 08:17 97.4 F L 67 16 125/73 05/03/20 03:15 98.0 F 64 20 140/82 98 Weight Weight 124 lb 5.451 oz I&O: 05/02/20 05/03/20 05/04/20 06:59 06:59 06:59 Intake Total 860 1340 Output Total 50 Balance 810 1340 Result Diagrams: 05/03/20 05:07 05/03/20 05:07 Hospitalist ROS - Medication Medications: Active Medications Generic Name Dose Route Start Last Admin Trade Name Freq PRN Reason Stop Dose Admin Brimonidine Tartrate 1 drop 05/02/20 21:00 05/03/20 08:11 Brimonidine Tartrate 0.2% Ophth Soln 5 Ml Bottle EA EYE 1 drop BID KAITY Administration Dorzolamide/Timolol 1 drop 05/02/20 21:00 05/03/20 08:12 Dorzolamide/Timolol 2%/0.5% Ophth Soln 10 Ml Bottle EA EYE 1 drop BID KAITY Administration Hydrocortisone Acetate 25 mg 05/01/20 21:00 05/02/20 20:13 Hydrocortisone Acetate 25 Mg Suppository ID 05/06/20 21:01 25 mg HS KAITY Administration Latanoprost 1 drop 05/02/20 21:00 05/03/20 08:11 Latanoprost 0.005% Ophth Soln 2.5 Ml Bottle EA EYE 1 drop BID KAITY Administration Lorazepam 0.5 mg 04/30/20 11:03 04/30/20 11:35 Lorazepam 0.5 Mg Tab PO 0.5 mg Q4H PRN Administration Anxiety Pantoprazole Sodium 40 mg 05/02/20 09:00 05/03/20 08:11 Pantoprazole 40 Mg Vial IVP 40 mg DAILY KAITY Administration Sodium Chloride 10 ml 04/30/20 21:00 05/03/20 08:12 Flush - Normal Saline 10 Ml Syringe IVF 10 ml Q12HR KAITY Administration Sodium Chloride 10 ml 04/30/20 18:00 05/01/20 00:26 Sodium Chloride 0.9% (Pf) 10 Ml Vial FS 10 ml PRN PRN Administration RECONSTITUTION Hospitalist Exam Vitals: Vital Signs (12 hours) Temp Pulse Resp BP Pulse Ox 05/03/20 08:17 97.4 F L 67 16 125/73 05/03/20 03:15 98.0 F 64 20 140/82 98 Weight Weight 124 lb 5.451 oz General Appearance: awake alert Neck: no JVD Heart: RRR Respiratory: CTAB Gastrointestinal: soft, normal bowel sounds Extremities: no edema Hosp A/P (1) GI bleed Code(s): K92.2 - GASTROINTESTINAL HEMORRHAGE, UNSPECIFIED Status: Acute Qualifiers: GI bleed type/associated pathology: unspecified gastrointestinal hemorrhage type Qualified Code(s): K92.2 - Gastrointestinal hemorrhage, unspecified (2) Symptomatic anemia Code(s): D64.9 - ANEMIA, UNSPECIFIED Status: Acute (3) ESRD (end stage renal disease) on dialysis Code(s): N18.6 - END STAGE RENAL DISEASE; Z99.2 - DEPENDENCE ON RENAL DIALYSIS Status: Chronic (4) Hypertension Code(s): I10 - ESSENTIAL (PRIMARY) HYPERTENSION Status: Chronic - Plan endoscopy unrevealing for bleeding site repeat HG in AM-suspect will need transfuion consider IV iron cont HD per renal
--- NOTE | 2020-05-03 15:10 | PRG ---
DATE OF SERVICE: 05/03/2020 SUBJECTIVE: Mr. Wynn is resting comfortably. OBJECTIVE: VITAL SIGNS: Temperature is 98, blood pressure 115/81. ABDOMEN: Nontender. LABORATORY DATA: Hemoglobin is 7.1, white count 3.1. ASSESSMENT: Lower gastrointestinal bleeding, resolved. Nurses have noted no bleeding overnight. Hemoglobin is relatively stable. He is on dialysis presently. PLAN: Advance diet as tolerated. When he goes home, place him on daily fiber supplementation. Avoid NSAIDs and avoid heparin on dialysis prior to the next 2 weeks. This is likely a recurrent diverticular bleed. We will sign off. If I can be of any further assistance in the patient's care, please do not hesitate to re-consult. Job ID: [id number]
[2020-05-03] MEDS: Hydrocortisone Acetate 25 MG Suppository PR SCH (22:22)
[2020-05-04 05:42] LABS: #Eosinphils 0.1 thou/uL (0.0-0.7); #Lymphocytes 0.5 thou/uL (1.20-3.40); #Monocytes 0.4 thou/uL (0.11-0.59); %Eosinophils 4.3 % (0.0-10.0); %Lymphocytes 16.5 % (21.0-51.0); %Neutrophils 64.3 % (42.0-75.0); Hemoglobin 7.2 g/dL (14.0-18.0); Mean Corpuscular HGB CONC 32.1 g/dL (32.0-36.0); Mean Corpuscular Hemoglobin 30.3 pg (27.0-31.0); Mean Corpuscular Volume 94.6 fL (78.0-98.0); Mean Platelet Volume 8.3 fL (7.4-10.4); Platelet Count 163 thou/uL (130-400); Red Blood Cell (RBC) Count 2.38 mill/uL (4.70-6.10); White Blood Cell (WBC) Count 3.1 thou/uL (4.8-10.8)
[2020-05-04 05:57] LABS: Anion Gap 13 mmol/L (10-20); BUN (Urea Nitrogen) 25 mg/dL (8.4-25.7); Calc. Creatinine Clearance 9 mL/min (70-130); Calcium 7.8 mg/dL (7.8-10.44); Carbon Dioxide 28 mmol/L (23-31); Chloride 101 mmol/L (98-107); Glucose 76 mg/dL (83-110); Potassium 3.7 mmol/L (3.5-5.1); Sodium 138 mmol/L (136-145)
[2020-05-04] MEDS: Latanoprost 0.005% Ophth Soln 2.5 ml Bottle EA EYE SCH ×2 (08:48→21:17)
[2020-05-04] MEDS: Brimonidine Tartrate 0.2% Ophth Soln 5 ml Bottle EA EYE SCH ×2 (08:54→21:17)
[2020-05-04] MEDS: Pantoprazole 40 MG VIAL IVP SCH (08:55)
[2020-05-04] MEDS: DorzolamidE/Timolol 2%/0.5% Ophth Soln 10 ml Bottle EA EYE SCH ×2 (08:59→21:16)
--- NOTE | 2020-05-04 13:02 | PDOC.HOSPP ---
- Subjective Encounter Date: 05/04/20 Encounter Time: 13:00 Subjective: alert, no distress - Objective Vital Signs & Weight: Vital Signs (12 hours) Temp Pulse Resp BP BP Pulse Ox 05/04/20 08:00 97.1 F L 60 20 101/69 95 05/04/20 04:00 97.7 F 59 L 16 110/61 100 Weight Weight 124 lb 5.451 oz I&O: 05/03/20 05/04/20 05/05/20 06:59 06:59 06:59 Intake Total 1340 600 Output Total 1200 Balance 1340 -600 Result Diagrams: 05/04/20 05:12 05/04/20 05:12 Hospitalist ROS - Medication Medications: Active Medications Generic Name Dose Route Start Last Admin Trade Name Freq PRN Reason Stop Dose Admin Brimonidine Tartrate 1 drop 05/02/20 21:00 05/04/20 08:54 Brimonidine Tartrate 0.2% Ophth Soln 5 Ml Bottle EA EYE 1 drop BID KAITY Administration Dorzolamide/Timolol 1 drop 05/02/20 21:00 05/04/20 08:59 Dorzolamide/Timolol 2%/0.5% Ophth Soln 10 Ml Bottle EA EYE 1 drop BID KAITY Administration Hydrocortisone Acetate 25 mg 05/01/20 21:00 05/03/20 22:22 Hydrocortisone Acetate 25 Mg Suppository FL 05/06/20 21:01 25 mg HS KAITY Administration Latanoprost 1 drop 05/02/20 21:00 05/04/20 08:48 Latanoprost 0.005% Ophth Soln 2.5 Ml Bottle EA EYE 1 drop BID KAITY Administration Lorazepam 0.5 mg 04/30/20 11:03 04/30/20 11:35 Lorazepam 0.5 Mg Tab PO 0.5 mg Q4H PRN Administration Anxiety Pantoprazole Sodium 40 mg 05/02/20 09:00 05/04/20 08:55 Pantoprazole 40 Mg Vial IVP 40 mg DAILY KAITY Administration Sodium Chloride 10 ml 04/30/20 21:00 05/04/20 09:01 Flush - Normal Saline 10 Ml Syringe IVF 10 ml Q12HR KAITY Administration Sodium Chloride 10 ml 04/30/20 18:00 05/01/20 00:26 Sodium Chloride 0.9% (Pf) 10 Ml Vial FS 10 ml PRN PRN Administration RECONSTITUTION Hospitalist Exam Vitals: Vital Signs (12 hours) Temp Pulse Resp BP BP Pulse Ox 05/04/20 08:00 97.1 F L 60 20 101/69 95 05/04/20 04:00 97.7 F 59 L 16 110/61 100 Weight Weight 124 lb 5.451 oz Neck: no JVD Heart: RRR, no murmur Respiratory: CTAB Gastrointestinal: soft, normal bowel sounds Extremities: no edema Hosp A/P (1) GI bleed Code(s): K92.2 - GASTROINTESTINAL HEMORRHAGE, UNSPECIFIED Status: Acute Qualifiers: GI bleed type/associated pathology: unspecified gastrointestinal hemorrhage type Qualified Code(s): K92.2 - Gastrointestinal hemorrhage, unspecified (2) Symptomatic anemia Code(s): D64.9 - ANEMIA, UNSPECIFIED Status: Acute (3) ESRD (end stage renal disease) on dialysis Code(s): N18.6 - END STAGE RENAL DISEASE; Z99.2 - DEPENDENCE ON RENAL DIALYSIS Status: Chronic (4) Hypertension Code(s): I10 - ESSENTIAL (PRIMARY) HYPERTENSION Status: Chronic Qualifiers: Hypertension type: essential hypertension Qualified Code(s): I10 - Essential (primary) hypertension - Plan Hg about 7-transfuse 1 unit PRBC iv iron tx cont HD, etc
[2020-05-04] MEDS ORDERED: Iron, Sodium Ferric Gluconate 250 MG in Sodium Chloride 0.9% 100 ML IVPB SCH (13:15)
--- NOTE | 2020-05-04 14:41 | PDOC.BPN ---
- Brief Progress Note Encounter Date: 05/04/20 Encounter Time: 14:40 urine C&S gm neg yolanda. cefdinar po pending sensitivities
[2020-05-04] MEDS ORDERED: Lorazepam 2 MG/ML VIAL ONE (17:18)
[2020-05-04] MEDS ORDERED: Lorazepam 2 MG/ML VIAL SLOW IVP PRN (17:34)
[2020-05-04] MEDS: Cefdinir 300 MG CAP PO SCH ×3 (21:17→21:45)
[2020-05-04] MEDS: Hydrocortisone Acetate 25 MG Suppository PR SCH (21:17)
[2020-05-05 05:57] LABS: #Eosinphils 0.1 thou/uL (0.0-0.7); #Lymphocytes 0.6 thou/uL (1.20-3.40); #Monocytes 0.6 thou/uL (0.11-0.59); #Neutrophils 2.5 thou/uL (1.40-6.50); %Basophils 0.6 % (0.0-1.0); %Eosinophils 3.6 % (0.0-10.0); %Lymphocytes 15.5 % (21.0-51.0); %Monocytes 14.4 % (0.0-10.0); Hemoglobin 7.8 g/dL (14.0-18.0); Mean Corpuscular HGB CONC 31.7 g/dL (32.0-36.0); Mean Corpuscular Hemoglobin 30.5 pg (27.0-31.0); Mean Corpuscular Volume 96.4 fL (78.0-98.0); Mean Platelet Volume 8.3 fL (7.4-10.4); Platelet Count 182 thou/uL (130-400); RBC Distribution Width 14.1 % (11.5-14.5); Red Blood Cell (RBC) Count 2.55 mill/uL (4.70-6.10); White Blood Cell (WBC) Count 3.8 thou/uL (4.8-10.8)
[2020-05-05] MEDS: Pantoprazole 40 MG VIAL IVP SCH (11:53)
[2020-05-05] MEDS: Cefdinir 300 MG CAP PO SCH (11:54)
[2020-05-05] MEDS: DorzolamidE/Timolol 2%/0.5% Ophth Soln 10 ml Bottle EA EYE SCH (11:54)
[2020-05-05] MEDS: Brimonidine Tartrate 0.2% Ophth Soln 5 ml Bottle EA EYE SCH (11:55)
[2020-05-05] MEDS: Latanoprost 0.005% Ophth Soln 2.5 ml Bottle EA EYE SCH (11:56)
[2020-05-05 12:32] VITALS: BP 132/79; TEMP 98.9
--- NOTE | 2020-05-06 07:20 | DIS ---
DATE OF ADMISSION: 04/27/2020 DATE OF DISCHARGE: 05/05/2020 PRIMARY CARE PHYSICIAN: Unknown. FINAL DIAGNOSES: 1. Lower gastrointestinal bleed, self-limiting. 2. Anemia due to blood loss. 3. End-stage renal disease. 4. Hyperkalemia. 5. Glaucoma. 6. Duodenitis. DISCHARGE MEDICATIONS: 1. Multivitamin. 2. Latanoprost 1 drop each eye b.i.d. 3. Alphagan 1 drop each eye b.i.d. 4. Dorzolamide hydrochloride and timolol maleate ophthalmic 1 drop each eye b.i.d. 5. Cefdinir 300 mg p.o. b.i.d. 6. Protonix 40 mg daily. ALLERGIES: NO KNOWN DRUG ALLERGIES. CODE STATUS: Full. PENDING AT TIME OF DISCHARGE: Nothing. DIET: Renal. HOSPITAL COURSE: The patient admitted to the hospital on 04/27/2020 from [facility] with GI bleed and hyperkalemia. He had some bloody stools. He was seen in consultation by Dr. Cruzito Anand, Gastroenterology and Dr. Hsieh, Nephrology. He had a GI bleeding scan on 04/30/2020, suggestive of GI bleeding in the right lower quadrant of sigmoid colon. He had an EGD with flexible sigmoidoscopy. Diagnoses were duodenitis, diffuse diverticular disease with no active bleeding. The patient was put on a PPI. His initial hemoglobin was 10. He dropped down to 6.7, received a transfusion dropped down to 7.2, had another transfusion. He has had no bleeding in days. Hemoglobin 7.8. His lytes were balanced after dialysis. Initial potassium was 6.0. He was dialyzed every other day per Dr. Hsieh. He was COVID negative. The patient did not like being in the hospital, we had difficulties with him. His family came today to pick him up. He is being discharged home for followup with PCP in 3 to 7 days. Follow up with his hemodialysis regular appointments 3 times weekly. He will need a CBC, basic metabolic profile at followup. Risk of bleeding continues, on discharge, we have recommended he not have heparin in his routine dialysis for 1 to 2 weeks. Job ID: [id number]
== END 2020-05-05 17:10 | disposition home or self-care (01) | DRG 377 ==
LOC: ERS 17:30 → ERHOLD 21:05 → 3SE 04-28 03:49
PROVIDERS: ADMIT Student in an Organized Health Care Education/Training Program; ATTEND Internal Medicine
PROC: 5A1D70Z Performance of Urinary Filtration, Intermittent, Less than 6 Hours Per Day (ICD-10-PCS; 2020-04-28)
PROC: 30233N0 Transfusion of Autologous Red Blood Cells into Peripheral Vein, Percutaneous Approach (ICD-10-PCS; 2020-04-30)
PROC: 0DB98ZX Excision of Duodenum, Via Natural or Artificial Opening Endoscopic, Diagnostic (ICD-10-PCS; principal; 2020-05-01)
PROC: 0DJD8ZZ Inspection of Lower Intestinal Tract, Via Natural or Artificial Opening Endoscopic (ICD-10-PCS; 2020-05-01)
DX: K57.31 Diverticulosis of large intestine without perforation or abscess with bleeding (principal); N18.6 End stage renal disease; I12.0 Hypertensive chronic kidney disease with stage 5 chronic kidney disease or end stage renal disease; K62.6 Ulcer of anus and rectum; R64 Cachexia; Z68.1 Body mass index [BMI] 19.9 or less, adult; H40.9 Unspecified glaucoma; E78.5 Hyperlipidemia, unspecified; I25.10 Atherosclerotic heart disease of native coronary artery without angina pectoris; E87.5 Hyperkalemia; D72.819 Decreased white blood cell count, unspecified; K44.9 Diaphragmatic hernia without obstruction or gangrene; K64.9 Unspecified hemorrhoids; K29.80 Duodenitis without bleeding; Z20.822 Contact with and (suspected) exposure to COVID-19; D50.0 Iron deficiency anemia secondary to blood loss (chronic); Z99.2 Dependence on renal dialysis
CPT/HCPCS: 36415; 36416; 36430; 78278; 80048; 80053; 81001; 82565; 84132; 84484; 85014; 85018; 85025; 86850; 86900; 86901; 87086; 87186; 87340; 88305; 90471; 90662; 90732; 90935; 93005; 96374; 96375; 96376; A9604; C9113; G0008; G0009; G0257; J1644; J2060; J2704; J2916; J3490; P9016; U0002

== ENCOUNTER 2020-12-19 23:01 | Inpatient (IN) | payer BC, MEDICARE ==
[2020-12-20 01:30] VITALS: BMI 21.1
[2020-12-20] MEDS ORDERED: Acetaminophen 325 MG TAB PO PRN (02:00)
[2020-12-20] MEDS ORDERED: Guaifenesin DM 100-10/5 ML UDCUP PO PRN (02:00)
[2020-12-20] MEDS ORDERED: Acetaminophen 650 MG Suppository PR PRN (02:00)
[2020-12-20] MEDS ORDERED: Ondansetron PF 4 MG/2 ML Vial IVP PRN (02:00)
[2020-12-20] MEDS ORDERED: Senokot S 8.6-50 MG TAB PO PRN (02:00)
[2020-12-20] MEDS ORDERED: hydrALAZINE 20 MG/ML VIAL SLOW IVP PRN (02:08)
[2020-12-20] MEDS ORDERED: Heparin 5,000 UNITS/ML VIAL SC SCH (02:45)
[2020-12-20 02:55] LABS: Troponin I 0.168 ng/mL (< 0.028)
[2020-12-20] MEDS: cefTRIAXone\\ROCEPHIN 2 GM in Sodium Chloride 0.9% 100 ML IVPB SCH (04:21)
[2020-12-20 08:03] LABS: #Basophils 0.1 thou/uL (0.0-0.2); #Lymphocytes 0.1 thou/uL (1.20-3.40); #Monocytes 0.2 thou/uL (0.11-0.59); #Neutrophils 5.2 thou/uL (1.40-6.50); %Basophils 1.4 % (0.0-1.0); %Eosinophils 0.2 % (0.0-10.0); %Lymphocytes 2.2 % (21.0-51.0); %Monocytes 3.4 % (0.0-10.0); %Neutrophils 92.8 % (42.0-75.0); Hemoglobin 7.7 g/dL (14.0-18.0); Mean Corpuscular Hemoglobin 31.6 pg (27.0-31.0); Mean Corpuscular Volume 98.7 fL (78.0-98.0); Mean Platelet Volume 9.5 fL (7.4-10.4); Platelet Count 134 thou/uL (130-400); RBC Distribution Width 15.9 % (11.5-14.5); Red Blood Cell (RBC) Count 2.43 mill/uL (4.70-6.10); White Blood Cell (WBC) Count 5.6 thou/uL (4.8-10.8)
[2020-12-20] MEDS ORDERED: Albuterol 200 PUFF (6.7GM INHALER) INH PRN (08:07)
[2020-12-20 08:29] LABS: Anion Gap 23 mmol/L (10-20); BUN (Urea Nitrogen) 100 mg/dL (8.4-25.7); Calc. Creatinine Clearance 5 mL/min (70-130); Calcium 7.8 mg/dL (7.8-10.44); Carbon Dioxide 19 mmol/L (23-31); Chloride 102 mmol/L (98-107); Glucose 102 mg/dL (83-110); Potassium 5.2 mmol/L (3.5-5.1); Sodium 139 mmol/L (136-145)
[2020-12-20] MEDS ORDERED: Famotidine/PF 20 mg/2ml Vial SLOW IVP SCH (09:00)
[2020-12-20] MEDS ORDERED: Dexamethasone 4 mg/ml Vial SLOW IVP SCH (09:00)
[2020-12-20 09:16] LABS: Troponin I 0.171 ng/mL (< 0.028)
[2020-12-20] MEDS: Ascorbic Acid 500 mg Chewable Tablet PO SCH (09:24)
[2020-12-20] MEDS: Cholecalciferol (Vitamin D3) 400 UNITS TAB PO SCH (09:24)
[2020-12-20] MEDS: Folic Acid/Vit B Comp W-C PO SCH (09:25)
[2020-12-20] MEDS: Albuterol 200 PUFF (6.7GM INHALER) INH SCH ×4 (09:27→21:31)
[2020-12-20] MEDS: Heparin 5,000 UNITS/ML VIAL SC SCH ×2 (09:30→20:44)
[2020-12-20] MEDS: Zinc Sulfate 220 MG CAP PO SCH (09:31)
[2020-12-20] MEDS: Brimonidine Tartrate 0.2% Ophth Soln 5 ml Bottle EA EYE SCH ×2 (09:41→20:44)
[2020-12-20] MEDS: DorzolamidE/Timolol 2%/0.5% Ophth Soln 10 ml Bottle EA EYE SCH ×2 (09:42→20:44)
[2020-12-20] MEDS: Latanoprost 0.005% Ophth Soln 2.5 ml Bottle EA EYE SCH ×2 (09:43→20:44)
[2020-12-20] MEDS ORDERED: Iopamidol-370 76% 500 ML 1 ML ONE (10:36)
[2020-12-20] MEDS ORDERED: Dexamethasone 10 MG/ML VIAL SLOW IVP SCH (12:00)
[2020-12-20 14:08] LABS: HBSAg Index 0.17 S/CO (0-0.99); Hep B Surf Ag Non-Reactive S/CO (NonReactive)
[2020-12-20 22:31] LABS: Vancomycin, Random 9.1 ug/mL (See Comment)
[2020-12-20] MEDS ORDERED: Vancomycin HCl 750 MG in Sodium Chloride 0.9% 250 ML 250 ML IVPB SCH (23:59)
[2020-12-21] MEDS: cefTRIAXone\\ROCEPHIN 2 GM in Sodium Chloride 0.9% 100 ML IVPB SCH (03:39)
[2020-12-21] MEDS: Albuterol 200 PUFF (6.7GM INHALER) INH SCH ×6 (03:40→23:25)
[2020-12-21 05:50] LABS: #Lymphocytes 0.4 thou/uL (1.20-3.40); #Monocytes 0.3 thou/uL (0.11-0.59); %Basophils 0.7 % (0.0-1.0); %Eosinophils 0.1 % (0.0-10.0); %Lymphocytes 7.7 % (21.0-51.0); %Monocytes 5.5 % (0.0-10.0); %Neutrophils 85.9 % (42.0-75.0); Hemoglobin 8.8 g/dL (14.0-18.0); Mean Corpuscular Hemoglobin 31.6 pg (27.0-31.0); Mean Corpuscular Volume 98.8 fL (78.0-98.0); Mean Platelet Volume 10.2 fL (7.4-10.4); Platelet Count 132 thou/uL (130-400); RBC Distribution Width 16.1 % (11.5-14.5); Red Blood Cell (RBC) Count 2.77 mill/uL (4.70-6.10); White Blood Cell (WBC) Count 4.6 thou/uL (4.8-10.8)
[2020-12-21 06:21] LABS: ALT (SGPT) 28 U/L (8-55); AST (SGOT) 92 U/L (5-34); Albumin 3.1 g/dL (3.4-4.8); Alkaline Phosphatase 47 U/L (40-110); Anion Gap 20 mmol/L (10-20); BUN (Urea Nitrogen) 50 mg/dL (8.4-25.7); Bilirubin, Total 0.4 mg/dL (0.2-1.2); CK (CPK) 1737 U/L (30-200); Calc. Creatinine Clearance 8 mL/min (70-130); Calcium 8.3 mg/dL (7.8-10.44); Carbon Dioxide 24 mmol/L (23-31); Chloride 100 mmol/L (98-107); Globulin 2.9 g/dL (2.4-3.5); Glucose 85 mg/dL (83-110); Potassium 3.9 mmol/L (3.5-5.1); Sodium 140 mmol/L (136-145)
[2020-12-21] MEDS: Dexamethasone 4 mg/ml Vial SLOW IVP SCH (11:47)
[2020-12-21] MEDS: Ascorbic Acid 500 mg Chewable Tablet PO SCH (11:47)
[2020-12-21] MEDS: Folic Acid/Vit B Comp W-C PO SCH (11:47)
[2020-12-21] MEDS: Cholecalciferol (Vitamin D3) 400 UNITS TAB PO SCH (11:47)
[2020-12-21] MEDS: Zinc Sulfate 220 MG CAP PO SCH (11:47)
[2020-12-21] MEDS: DorzolamidE/Timolol 2%/0.5% Ophth Soln 10 ml Bottle EA EYE SCH ×2 (11:48→20:48)
[2020-12-21] MEDS: Heparin 5,000 UNITS/ML VIAL SC SCH ×2 (11:48→20:48)
[2020-12-21] MEDS: Brimonidine Tartrate 0.2% Ophth Soln 5 ml Bottle EA EYE SCH ×2 (11:49→20:47)
[2020-12-21] MEDS: Latanoprost 0.005% Ophth Soln 2.5 ml Bottle EA EYE SCH ×2 (11:49→20:48)
[2020-12-21 19:15] LABS: SARS-CoV-2 IgG Ab Non-Reactive (NonReactive)
[2020-12-21 19:28] LABS: SARS-CoV-2 IgG Index 0.03 S/CO (< 1.40)
[2020-12-22 00:16] LABS: Vancomycin, Random 15.6 ug/mL (See Comment)
[2020-12-22] MEDS ORDERED: Vancomycin HCl 500 MG in Sodium Chloride 0.9% 100 ML IVPB SCH ×2 (02:00→14:15)
[2020-12-22] MEDS: Albuterol 200 PUFF (6.7GM INHALER) INH SCH ×6 (02:42→23:06)
[2020-12-22] MEDS: cefTRIAXone\\ROCEPHIN 2 GM in Sodium Chloride 0.9% 100 ML IVPB SCH (04:59)
[2020-12-22 05:37] LABS: #Lymphocytes 0.2 thou/uL (1.20-3.40); #Monocytes 0.3 thou/uL (0.11-0.59); #Neutrophils 2.9 thou/uL (1.40-6.50); %Basophils 0.9 % (0.0-1.0); %Eosinophils 0.1 % (0.0-10.0); %Lymphocytes 6.9 % (21.0-51.0); %Monocytes 7.5 % (0.0-10.0); %Neutrophils 84.7 % (42.0-75.0); Hemoglobin 8.5 g/dL (14.0-18.0); Mean Corpuscular HGB CONC 31.9 g/dL (32.0-36.0); Mean Corpuscular Hemoglobin 31.7 pg (27.0-31.0); Mean Corpuscular Volume 99.4 fL (78.0-98.0); Mean Platelet Volume 9.9 fL (7.4-10.4); Platelet Count 132 thou/uL (130-400); RBC Distribution Width 16.3 % (11.5-14.5); Red Blood Cell (RBC) Count 2.69 mill/uL (4.70-6.10); White Blood Cell (WBC) Count 3.5 thou/uL (4.8-10.8)
[2020-12-22 05:53] LABS: ALT (SGPT) 32 U/L (8-55); AST (SGOT) 98 U/L (5-34); Albumin 3.1 g/dL (3.4-4.8); Alkaline Phosphatase 43 U/L (40-110); Anion Gap 20 mmol/L (10-20); BUN (Urea Nitrogen) 71 mg/dL (8.4-25.7); Bilirubin, Total 0.4 mg/dL (0.2-1.2); CK (CPK) 1578 U/L (30-200); Calc. Creatinine Clearance 6 mL/min (70-130); Calcium 8.2 mg/dL (7.8-10.44); Carbon Dioxide 24 mmol/L (23-31); Chloride 99 mmol/L (98-107); Globulin 3.3 g/dL (2.4-3.5); Glucose 96 mg/dL (83-110); Potassium 4.2 mmol/L (3.5-5.1); Protein, Total 6.4 g/dL (5.8-8.1); Sodium 139 mmol/L (136-145)
[2020-12-22] MEDS: Zinc Sulfate 220 MG CAP PO SCH (09:48)
[2020-12-22] MEDS: Ascorbic Acid 500 mg Chewable Tablet PO SCH (09:48)
[2020-12-22] MEDS: Brimonidine Tartrate 0.2% Ophth Soln 5 ml Bottle EA EYE SCH ×2 (09:48→21:28)
[2020-12-22] MEDS: Folic Acid/Vit B Comp W-C PO SCH (09:48)
[2020-12-22] MEDS: Dexamethasone 4 mg/ml Vial SLOW IVP SCH (09:48)
[2020-12-22] MEDS: Cholecalciferol (Vitamin D3) 400 UNITS TAB PO SCH (09:48)
[2020-12-22] MEDS: DorzolamidE/Timolol 2%/0.5% Ophth Soln 10 ml Bottle EA EYE SCH ×2 (09:49→21:29)
[2020-12-22] MEDS: Latanoprost 0.005% Ophth Soln 2.5 ml Bottle EA EYE SCH ×2 (09:49→21:28)
[2020-12-22] MEDS: Heparin 5,000 UNITS/ML VIAL SC SCH ×2 (09:49→21:29)
[2020-12-22] MEDS ORDERED: Vancomycin HCl 750 MG in Sodium Chloride 0.9% 250 ML 250 ML IVPB SCH (14:15)
[2020-12-22] MEDS ORDERED: Vancomycin HCl 250 MG in Sodium Chloride 0.9% 100 ML IVPB SCH (14:15)
[2020-12-22] MEDS ORDERED: Vancomycin 1 GM in Premix Bag 1 BAG IVPB SCH (14:15)
[2020-12-22] MEDS ORDERED: HOLD VANCOMYCIN FOR LEVEL >20 FS SCH (14:15)
[2020-12-23] MEDS: Albuterol 200 PUFF (6.7GM INHALER) INH SCH ×6 (03:38→22:13)
[2020-12-23] MEDS: cefTRIAXone\\ROCEPHIN 2 GM in Sodium Chloride 0.9% 100 ML IVPB SCH (03:38)
[2020-12-23 05:21] LABS: #Lymphocytes 0.3 thou/uL (1.20-3.40); #Monocytes 0.3 thou/uL (0.11-0.59); %Eosinophils 0.1 % (0.0-10.0); %Lymphocytes 6.4 % (21.0-51.0); %Monocytes 6.4 % (0.0-10.0); %Neutrophils 87.2 % (42.0-75.0); Hemoglobin 8.1 g/dL (14.0-18.0); Mean Corpuscular HGB CONC 31.4 g/dL (32.0-36.0); Mean Corpuscular Hemoglobin 30.8 pg (27.0-31.0); Mean Corpuscular Volume 98.1 fL (78.0-98.0); Platelet Count 145 thou/uL (130-400); RBC Distribution Width 16.2 % (11.5-14.5); Red Blood Cell (RBC) Count 2.63 mill/uL (4.70-6.10); White Blood Cell (WBC) Count 4.5 thou/uL (4.8-10.8)
[2020-12-23 05:57] LABS: Anion Gap 22 mmol/L (10-20); BUN (Urea Nitrogen) 42 mg/dL (8.4-25.7); CK (CPK) 1042 U/L (30-200); CRP (Inflammatory) 12.91 mg/dL (= or < 0.5); Calc. Creatinine Clearance 9 mL/min (70-130); Calcium 7.8 mg/dL (7.8-10.44); Carbon Dioxide 23 mmol/L (23-31); Chloride 98 mmol/L (98-107); Glucose 80 mg/dL (83-110); Potassium 3.6 mmol/L (3.5-5.1); Sodium 139 mmol/L (136-145)
[2020-12-23] MEDS ORDERED: Folic Acid/Vit B Comp W-C PO SCH (09:00)
[2020-12-23] MEDS: Zinc Sulfate 220 MG CAP PO SCH (09:10)
[2020-12-23] MEDS: Ascorbic Acid 500 mg Chewable Tablet PO SCH (09:10)
[2020-12-23] MEDS: Brimonidine Tartrate 0.2% Ophth Soln 5 ml Bottle EA EYE SCH ×2 (09:10→20:07)
[2020-12-23] MEDS: Dexamethasone 4 mg/ml Vial SLOW IVP SCH (09:10)
[2020-12-23] MEDS: Cholecalciferol (Vitamin D3) 400 UNITS TAB PO SCH (09:10)
[2020-12-23] MEDS: Folic Acid/Vit B Comp W-C PO SCH (09:10)
[2020-12-23] MEDS: DorzolamidE/Timolol 2%/0.5% Ophth Soln 10 ml Bottle EA EYE SCH ×2 (09:10→20:07)
[2020-12-23] MEDS: Latanoprost 0.005% Ophth Soln 2.5 ml Bottle EA EYE SCH ×2 (09:11→20:08)
[2020-12-23] MEDS: Heparin 5,000 UNITS/ML VIAL SC SCH ×2 (09:12→20:08)
[2020-12-24] MEDS: cefTRIAXone\\ROCEPHIN 2 GM in Sodium Chloride 0.9% 100 ML IVPB SCH (04:00)
[2020-12-24] MEDS: Albuterol 200 PUFF (6.7GM INHALER) INH SCH ×6 (04:00→22:46)
[2020-12-24 05:26] LABS: #Lymphocytes 0.3 thou/uL (1.20-3.40); #Monocytes 0.3 thou/uL (0.11-0.59); #Neutrophils 4.9 thou/uL (1.40-6.50); %Eosinophils 0.1 % (0.0-10.0); %Lymphocytes 5.1 % (21.0-51.0); %Neutrophils 88.8 % (42.0-75.0); Hemoglobin 8.1 g/dL (14.0-18.0); Mean Corpuscular HGB CONC 32.6 g/dL (32.0-36.0); Mean Corpuscular Hemoglobin 32.1 pg (27.0-31.0); Mean Corpuscular Volume 98.4 fL (78.0-98.0); Platelet Count 166 thou/uL (130-400); RBC Distribution Width 16.4 % (11.5-14.5); Red Blood Cell (RBC) Count 2.51 mill/uL (4.70-6.10); White Blood Cell (WBC) Count 5.5 thou/uL (4.8-10.8)
[2020-12-24 05:52] LABS: Anion Gap 21 mmol/L (10-20); BUN (Urea Nitrogen) 66 mg/dL (8.4-25.7); Calc. Creatinine Clearance 6 mL/min (70-130); Calcium 7.8 mg/dL (7.8-10.44); Carbon Dioxide 25 mmol/L (23-31); Chloride 98 mmol/L (98-107); Glucose 105 mg/dL (83-110); Potassium 3.4 mmol/L (3.5-5.1); Sodium 141 mmol/L (136-145)
[2020-12-24] MEDS: Zinc Sulfate 220 MG CAP PO SCH (09:32)
[2020-12-24] MEDS: Dexamethasone 4 mg/ml Vial SLOW IVP SCH (09:32)
[2020-12-24] MEDS: Folic Acid/Vit B Comp W-C PO SCH (09:32)
[2020-12-24] MEDS: Cholecalciferol (Vitamin D3) 400 UNITS TAB PO SCH (09:32)
[2020-12-24] MEDS: Heparin 5,000 UNITS/ML VIAL SC SCH ×2 (09:32→20:14)
[2020-12-24] MEDS: Latanoprost 0.005% Ophth Soln 2.5 ml Bottle EA EYE SCH ×2 (09:32→20:13)
[2020-12-24] MEDS: DorzolamidE/Timolol 2%/0.5% Ophth Soln 10 ml Bottle EA EYE SCH ×2 (09:33→20:12)
[2020-12-24] MEDS: Brimonidine Tartrate 0.2% Ophth Soln 5 ml Bottle EA EYE SCH ×2 (09:39→20:13)
[2020-12-24] MEDS: Ascorbic Acid 500 mg Chewable Tablet PO SCH (09:39)
[2020-12-24] MEDS ORDERED: Sodium Chloride 0.9% 10 ML ONE (19:47)
[2020-12-25] MEDS: cefTRIAXone\\ROCEPHIN 2 GM in Sodium Chloride 0.9% 100 ML IVPB SCH (03:45)
[2020-12-25] MEDS: Albuterol 200 PUFF (6.7GM INHALER) INH SCH ×6 (03:46→22:57)
[2020-12-25 05:14] LABS: Band 3 % (5-11); Hemoglobin 8.5 g/dL (14.0-18.0); Lymphocytes 8 % (21-51); MDiff Complete? YES; Mean Corpuscular HGB CONC 31.6 g/dL (32.0-36.0); Mean Corpuscular Hemoglobin 31.2 pg (27.0-31.0); Mean Corpuscular Volume 98.6 fL (78.0-98.0); Mean Platelet Volume 9.8 fL (7.4-10.4); Monocytes 11 % (0-10); Neutrophil 78 % (42-75); Platelet Count 175 thou/uL (130-400); Platelet Morphology Comment Appears Adequate; RBC Distribution Width 16.5 % (11.5-14.5); Red Blood Cell (RBC) Count 2.72 mill/uL (4.70-6.10)
[2020-12-25 05:36] LABS: Anion Gap 27 mmol/L (10-20); BUN (Urea Nitrogen) 87 mg/dL (8.4-25.7); CK (CPK) 667 U/L (30-200); CRP (Inflammatory) 15.23 mg/dL (= or < 0.5); Calc. Creatinine Clearance 5 mL/min (70-130); Calcium 7.8 mg/dL (7.8-10.44); Carbon Dioxide 20 mmol/L (23-31); Chloride 98 mmol/L (98-107); Glucose 101 mg/dL (83-110); Potassium 3.9 mmol/L (3.5-5.1); Sodium 141 mmol/L (136-145)
[2020-12-25] MEDS: Folic Acid/Vit B Comp W-C PO SCH (08:53)
[2020-12-25] MEDS: Ascorbic Acid 500 mg Chewable Tablet PO SCH (08:54)
[2020-12-25] MEDS: DorzolamidE/Timolol 2%/0.5% Ophth Soln 10 ml Bottle EA EYE SCH ×2 (08:54→20:13)
[2020-12-25] MEDS: Zinc Sulfate 220 MG CAP PO SCH (08:54)
[2020-12-25] MEDS: Dexamethasone 4 mg/ml Vial SLOW IVP SCH (08:54)
[2020-12-25] MEDS: Cholecalciferol (Vitamin D3) 400 UNITS TAB PO SCH (08:54)
[2020-12-25] MEDS: Heparin 5,000 UNITS/ML VIAL SC SCH ×2 (08:54→20:13)
[2020-12-25] MEDS: Latanoprost 0.005% Ophth Soln 2.5 ml Bottle EA EYE SCH ×2 (08:55→20:14)
[2020-12-25] MEDS: Brimonidine Tartrate 0.2% Ophth Soln 5 ml Bottle EA EYE SCH ×2 (08:55→20:13)
[2020-12-26] MEDS: Albuterol 200 PUFF (6.7GM INHALER) INH SCH ×6 (01:59→20:46)
[2020-12-26] MEDS: Folic Acid/Vit B Comp W-C PO SCH (09:26)
[2020-12-26] MEDS: Cholecalciferol (Vitamin D3) 400 UNITS TAB PO SCH (09:26)
[2020-12-26] MEDS: Brimonidine Tartrate 0.2% Ophth Soln 5 ml Bottle EA EYE SCH ×2 (09:26→20:45)
[2020-12-26] MEDS: Ascorbic Acid 500 mg Chewable Tablet PO SCH (09:26)
[2020-12-26] MEDS: Zinc Sulfate 220 MG CAP PO SCH (09:26)
[2020-12-26] MEDS: Dexamethasone 4 mg/ml Vial SLOW IVP SCH (09:27)
[2020-12-26] MEDS: Heparin 5,000 UNITS/ML VIAL SC SCH ×2 (09:27→20:45)
[2020-12-26] MEDS: DorzolamidE/Timolol 2%/0.5% Ophth Soln 10 ml Bottle EA EYE SCH ×2 (09:27→20:46)
[2020-12-26] MEDS: Latanoprost 0.005% Ophth Soln 2.5 ml Bottle EA EYE SCH ×2 (09:27→20:46)
[2020-12-27] MEDS: Albuterol 200 PUFF (6.7GM INHALER) INH SCH ×3 (02:34→15:00)
[2020-12-27] MEDS: Latanoprost 0.005% Ophth Soln 2.5 ml Bottle EA EYE SCH (09:30)
[2020-12-27] MEDS: Heparin 5,000 UNITS/ML VIAL SC SCH (09:30)
[2020-12-27] MEDS: Brimonidine Tartrate 0.2% Ophth Soln 5 ml Bottle EA EYE SCH (09:30)
[2020-12-27] MEDS: Ascorbic Acid 500 mg Chewable Tablet PO SCH (11:22)
[2020-12-27] MEDS: Cholecalciferol (Vitamin D3) 400 UNITS TAB PO SCH (11:22)
[2020-12-27] MEDS: DorzolamidE/Timolol 2%/0.5% Ophth Soln 10 ml Bottle EA EYE SCH (11:23)
[2020-12-27] MEDS: Dexamethasone 4 mg/ml Vial SLOW IVP SCH (13:53)
[2020-12-27] MEDS: Zinc Sulfate 220 MG CAP PO SCH (13:54)
[2020-12-27] MEDS: Folic Acid/Vit B Comp W-C PO SCH (13:54)
[2020-12-27 16:15] VITALS: BP 108/53; TEMP 97.7
== END 2020-12-27 17:02 | disposition home or self-care (01) | DRG 871 ==
LOC: 2SW 23:01
PROVIDERS: ADMIT Student in an Organized Health Care Education/Training Program; ATTEND Hospitalist
PROC: 8E0ZXY6 Isolation (ICD-10-PCS; 2020-12-19)
PROC: 5A1D70Z Performance of Urinary Filtration, Intermittent, Less than 6 Hours Per Day (ICD-10-PCS; 2020-12-20)
PROC: 3E0333Z Introduction of Anti-inflammatory into Peripheral Vein, Percutaneous Approach (ICD-10-PCS; 2020-12-21)
PROC: XW033G6 Introduction of REGN-COV2 Monoclonal Antibody into Peripheral Vein, Percutaneous Approach, New Technology Group 6 (ICD-10-PCS; principal; 2020-12-23)
DX: A41.89 Other specified sepsis (principal); U07.1 COVID-19; J12.82 Pneumonia due to coronavirus disease 2019; N18.6 End stage renal disease; G92.8 Other toxic encephalopathy; M62.82 Rhabdomyolysis; I12.0 Hypertensive chronic kidney disease with stage 5 chronic kidney disease or end stage renal disease; J90 Pleural effusion, not elsewhere classified; Q61.3 Polycystic kidney, unspecified; N13.6 Pyonephrosis; R65.20 Severe sepsis without septic shock; A41.4 Sepsis due to anaerobes; I25.10 Atherosclerotic heart disease of native coronary artery without angina pectoris; E78.5 Hyperlipidemia, unspecified; H54.8 Legal blindness, as defined in USA; R79.89 Other specified abnormal findings of blood chemistry; D63.1 Anemia in chronic kidney disease; H40.9 Unspecified glaucoma; Z99.2 Dependence on renal dialysis; Z79.899 Other long term (current) drug therapy; Z87.440 Personal history of urinary (tract) infections; Z87.891 Personal history of nicotine dependence
CPT/HCPCS: 36415; 71045; 71275; 80048; 80053; 80202; 82274; 82550; 82728; 83605; 84484; 85025; 86140; 86769; 87340; 90935; 93005; 93010; G0257; J0696; J1100; J1644; J3370; J3490; J7050; M0243; Q0244; Q9967

== ENCOUNTER 2021-01-13 19:32 | Emergency (ER) | payer MEDICARE ==
[2021-01-13 20:25] LABS: #Eosinphils 0.3 thou/uL (0.0-0.7); #Lymphocytes 0.9 thou/uL (1.20-3.40); #Monocytes 0.4 thou/uL (0.11-0.59); #Neutrophils 1.7 thou/uL (1.40-6.50); %Eosinophils 7.8 % (0.0-10.0); %Neutrophils 51.2 % (42.0-75.0); Hemoglobin 6.6 g/dL (14.0-18.0); Mean Corpuscular HGB CONC 31.9 g/dL (32.0-36.0); Mean Corpuscular Hemoglobin 31.9 pg (27.0-31.0); Mean Corpuscular Volume 99.8 fL (78.0-98.0); Mean Platelet Volume 9.4 fL (7.4-10.4); Platelet Count 158 thou/uL (130-400); RBC Distribution Width 16.6 % (11.5-14.5); Red Blood Cell (RBC) Count 2.07 mill/uL (4.70-6.10); White Blood Cell (WBC) Count 3.3 thou/uL (4.8-10.8)
[2021-01-13 20:44] LABS: ALT (SGPT) 8 U/L (8-55); AST (SGOT) 25 U/L (5-34); Albumin 2.9 g/dL (3.4-4.8); Alkaline Phosphatase 79 U/L (40-110); Anion Gap 17 mmol/L (10-20); BUN (Urea Nitrogen) 48 mg/dL (8.4-25.7); Bilirubin, Total 0.4 mg/dL (0.2-1.2); Calc. Creatinine Clearance 0 mL/min (70-130); Calcium 9.1 mg/dL (7.8-10.44); Carbon Dioxide 27 mmol/L (23-31); Chloride 102 mmol/L (98-107); Globulin 2.9 g/dL (2.4-3.5); Glucose 107 mg/dL (83-110); Potassium 4.9 mmol/L (3.5-5.1); Protein, Total 5.8 g/dL (5.8-8.1); Sodium 141 mmol/L (136-145)
[2021-01-14 01:31] LABS: Hemoglobin 7.2 g/dL (14.0-18.0)
== END 2021-01-14 02:30 | disposition home or self-care (01) ==
LOC: ERS 19:32
DX: D64.9 Anemia, unspecified (principal); I12.0 Hypertensive chronic kidney disease with stage 5 chronic kidney disease or end stage renal disease; N18.6 End stage renal disease; Z99.2 Dependence on renal dialysis; E78.5 Hyperlipidemia, unspecified
CPT/HCPCS: 36430; 80053; 85014; 85018; 85025; 86850; 86900; 86901; 86920; 93005; 94760; 99284; P9016; 36415

== ENCOUNTER 2021-10-01 17:31 | Inpatient (IN) | payer BC, MEDICARE ==
[2021-10-01 18:08] LABS: Bacteria/HPF None Seen HPF (None Seen); Bilirubin Negative (Negative); Blood, Urine 1+ (Negative); Clarity Clear (Clear); Glucose, Urine (Dipstick) Normal (Negative); Ketone, Urine Negative (Negative); Leukocyte Negative Leu/uL (Negative); Nitrite Negative (Negative); Protein, Urine (Dipstick) 200 mg/dL (Neg-Trace); Specific Gravity, Urine 1.011 (1.002-1.036); Squamous Epithelial None Seen HPF (0-3); Urobilinogen Normal mg/dL (Less than 2); WBC/HPF 0-3 HPF (0-3); pH, Urine 7.5 (5.0-9.0)
[2021-10-01 18:08] LABS: #Eosinphils 0.4 thou/uL (0.0-0.7); #Lymphocytes 0.6 thou/uL (1.20-3.40); #Monocytes 0.4 thou/uL (0.11-0.59); #Neutrophils 3.2 thou/uL (1.40-6.50); %Basophils 0.2 % (0.0-1.0); %Eosinophils 7.7 % (0.0-10.0); %Lymphocytes 12.1 % (21.0-51.0); %Monocytes 9.1 % (0.0-10.0); %Neutrophils 70.8 % (42.0-75.0); Hemoglobin 11.4 g/dL (14.0-18.0); Mean Corpuscular HGB CONC 32.1 g/dL (32.0-36.0); Mean Corpuscular Hemoglobin 32.3 pg (27.0-31.0); Mean Platelet Volume 10.5 fL (7.4-10.4); Platelet Count 99 thou/uL (130-400); RBC Distribution Width 14.6 % (11.5-14.5); Red Blood Cell (RBC) Count 3.53 mill/uL (4.70-6.10); White Blood Cell (WBC) Count 4.6 thou/uL (4.8-10.8)
[2021-10-01 18:21] LABS: MDiff Complete? YES; Macrocytosis SLIGHT = 6-15 cells (100X) (0-5/hpf); Ovalocytes SLIGHT = 2-5 cells (100X) (0-1/hpf); Platelet Morphology Comment Appears Decreased; Polychromasia SLIGHT = 2-3 cells (100X) (0-2/hpf)
[2021-10-01 18:27] LABS: ALT (SGPT) 31 U/L (8-55); AST (SGOT) 50 U/L (5-34); Albumin 3.4 g/dL (3.4-4.8); Alkaline Phosphatase 75 U/L (40-110); Anion Gap 16 mmol/L (10-20); BUN (Urea Nitrogen) 37 mg/dL (8.4-25.7); Bilirubin, Total 0.4 mg/dL (0.2-1.2); Calc. Creatinine Clearance 0 mL/min (70-130); Carbon Dioxide 24 mmol/L (23-31); Chloride 106 mmol/L (98-107); Estimated GFR 12; Globulin 2.7 g/dL (2.4-3.5); Glucose 124 mg/dL (83-110); Potassium 3.9 mmol/L (3.5-5.1); Protein, Total 6.1 g/dL (5.8-8.1); Sodium 142 mmol/L (136-145)
[2021-10-01] MEDS ORDERED: Furosemide 40 MG/4 ML VIAL ONE (19:08)
[2021-10-01] MEDS ORDERED: Nitroglycerin 2% Ointment 1 INCH/1 GM Packet ONE (19:08)
[2021-10-01] MEDS ORDERED: Furosemide 20 MG/2 ML VIAL ONE (19:08)
[2021-10-02 00:52] LABS: Troponin I 0.045 ng/mL (< 0.028)
[2021-10-02] MEDS ORDERED: hydrALAZINE 20 MG/ML VIAL SLOW IVP PRN ×2 (04:40→05:14)
[2021-10-02 05:04] LABS: #Eosinphils 0.2 thou/uL (0.0-0.7); #Lymphocytes 0.5 thou/uL (1.20-3.40); #Monocytes 0.4 thou/uL (0.11-0.59); #Neutrophils 3.9 thou/uL (1.40-6.50); %Basophils 0.1 % (0.0-1.0); %Eosinophils 3.4 % (0.0-10.0); %Lymphocytes 9.8 % (21.0-51.0); %Monocytes 8.2 % (0.0-10.0); %Neutrophils 78.4 % (42.0-75.0); Hemoglobin 11.2 g/dL (14.0-18.0); Mean Corpuscular HGB CONC 31.9 g/dL (32.0-36.0); Mean Corpuscular Hemoglobin 31.8 pg (27.0-31.0); Mean Corpuscular Volume 99.7 fL (78.0-98.0); Mean Platelet Volume 10.6 fL (7.4-10.4); Platelet Count 98 thou/uL (130-400); RBC Distribution Width 14.5 % (11.5-14.5); Red Blood Cell (RBC) Count 3.51 mill/uL (4.70-6.10)
[2021-10-02 05:11] LABS: Anion Gap 16 mmol/L (10-20); BUN (Urea Nitrogen) 42 mg/dL (8.4-25.7); Calc. Creatinine Clearance 7 mL/min (70-130); Carbon Dioxide 24 mmol/L (23-31); Chloride 106 mmol/L (98-107); Estimated GFR 11; Glucose 72 mg/dL (83-110); Potassium 4.1 mmol/L (3.5-5.1); Sodium 142 mmol/L (136-145)
[2021-10-02 05:18] LABS: Troponin I 0.034 ng/mL (< 0.028)
[2021-10-02] MEDS ORDERED: Heparin 5,000 UNITS/ML VIAL SC SCH (09:00)
[2021-10-02] MEDS ORDERED: Amlodipine 5 MG TAB PO SCH (11:00)
[2021-10-02] MEDS: Calcium Acetate 667 MG CAP PO SCH ×2 (11:50→18:08)
[2021-10-02] MEDS ORDERED: Calcium Acetate 667 MG CAP PO SCH (12:00)
[2021-10-02] MEDS ORDERED: Non-Formulary Item 1 EACH (Dorzolamide Hcl/Timolol Maleat [Dorzolamide Hcl/Timolol Maleat EA EYE SCH (21:00)
[2021-10-02] MEDS: DorzolamidE/Timolol 2%/0.5% Ophth Soln 10 ml Bottle EA EYE SCH (23:04)
[2021-10-02] MEDS: Latanoprost 0.005% Ophth Soln 2.5 ml Bottle EA EYE SCH (23:08)
[2021-10-02] MEDS: Brimonidine Tartrate 0.2% Ophth Soln 5 ml Bottle EA EYE SCH (23:13)
[2021-10-03 04:52] LABS: #Eosinphils 0.3 thou/uL (0.0-0.7); #Lymphocytes 0.6 thou/uL (1.20-3.40); #Monocytes 0.3 thou/uL (0.11-0.59); %Basophils 0.4 % (0.0-1.0); %Eosinophils 8.5 % (0.0-10.0); %Lymphocytes 18.3 % (21.0-51.0); %Monocytes 10.4 % (0.0-10.0); %Neutrophils 62.4 % (42.0-75.0); Hemoglobin 10.8 g/dL (14.0-18.0); Mean Corpuscular Volume 99.8 fL (78.0-98.0); Mean Platelet Volume 10.6 fL (7.4-10.4); Platelet Count 105 thou/uL (130-400); RBC Distribution Width 14.9 % (11.5-14.5); Red Blood Cell (RBC) Count 3.37 mill/uL (4.70-6.10); White Blood Cell (WBC) Count 3.2 thou/uL (4.8-10.8)
[2021-10-03 05:15] LABS: ALT (SGPT) 15 U/L (8-55); AST (SGOT) 19 U/L (5-34); Albumin 3.2 g/dL (3.4-4.8); Alkaline Phosphatase 61 U/L (40-110); Anion Gap 15 mmol/L (10-20); BUN (Urea Nitrogen) 50 mg/dL (8.4-25.7); Bilirubin, Total 0.5 mg/dL (0.2-1.2); Calc. Creatinine Clearance 6 mL/min (70-130); Calcium 8.9 mg/dL (7.8-10.44); Carbon Dioxide 24 mmol/L (23-31); Chloride 104 mmol/L (98-107); Estimated GFR 8; Globulin 2.5 g/dL (2.4-3.5); Magnesium 2.1 mg/dL (1.6-2.6); Phosphorus 3.3 mg/dL (2.3-4.7); Protein, Total 5.7 g/dL (5.8-8.1); Sodium 139 mmol/L (136-145)
[2021-10-03 05:19] LABS: Glucose 59 mg/dL (83-110)
[2021-10-03] MEDS ORDERED: FOLIC PO SCH (09:00)
[2021-10-03] MEDS ORDERED: Amlodipine 5 MG TAB PO SCH (09:00)
[2021-10-03] MEDS ORDERED: [UNRECOGNIZED DRUG - OTHER] PO SCH (09:00)
[2021-10-03] MEDS ORDERED: IRON PO SCH (09:00)
[2021-10-03] MEDS: Brimonidine Tartrate 0.2% Ophth Soln 5 ml Bottle EA EYE SCH ×2 (10:01→22:03)
[2021-10-03] MEDS: DorzolamidE/Timolol 2%/0.5% Ophth Soln 10 ml Bottle EA EYE SCH ×2 (10:02→22:03)
[2021-10-03] MEDS: Calcium Acetate 667 MG CAP PO SCH ×4 (10:05→18:47)
[2021-10-03] MEDS: Prenatal Vitamin 1 TAB PO SCH (10:05)
[2021-10-03] MEDS: Latanoprost 0.005% Ophth Soln 2.5 ml Bottle EA EYE SCH ×2 (11:05→22:07)
[2021-10-03 12:35] VITALS: BMI 18.0
[2021-10-04 04:54] LABS: Anion Gap 14 mmol/L (10-20); BUN (Urea Nitrogen) 24 mg/dL (8.4-25.7); Calc. Creatinine Clearance 10 mL/min (70-130); Carbon Dioxide 27 mmol/L (23-31); Chloride 101 mmol/L (98-107); Estimated GFR 13; Glucose 76 mg/dL (83-110); Potassium 3.9 mmol/L (3.5-5.1); Sodium 138 mmol/L (136-145)
[2021-10-04] MEDS ORDERED: Amlodipine 5 MG TAB PO SCH (09:00)
[2021-10-04] MEDS: Brimonidine Tartrate 0.2% Ophth Soln 5 ml Bottle EA EYE SCH (10:57)
[2021-10-04] MEDS: Prenatal Vitamin 1 TAB PO SCH (10:57)
[2021-10-04] MEDS: Calcium Acetate 667 MG CAP PO SCH ×2 (10:57→15:14)
[2021-10-04] MEDS: Latanoprost 0.005% Ophth Soln 2.5 ml Bottle EA EYE SCH (10:58)
[2021-10-04] MEDS: DorzolamidE/Timolol 2%/0.5% Ophth Soln 10 ml Bottle EA EYE SCH (10:58)
[2021-10-04 16:19] VITALS: BP 164/84; TEMP 97.1
== END 2021-10-04 18:40 | disposition home or self-care (01) | DRG 291 ==
LOC: ERS 17:31 → 2NO 19:46 → OBSVTOIN 19:46
PROVIDERS: ADMIT Family Medicine; ATTEND Family Medicine
PROC: 5A1D70Z Performance of Urinary Filtration, Intermittent, Less than 6 Hours Per Day (ICD-10-PCS; principal; 2021-10-03)
DX: I13.2 Hypertensive heart and chronic kidney disease with heart failure and with stage 5 chronic kidney disease, or end stage renal disease (principal); G93.41 Metabolic encephalopathy; N18.6 End stage renal disease; I50.33 Acute on chronic diastolic (congestive) heart failure; R64 Cachexia; D61.818 Other pancytopenia; Z68.1 Body mass index [BMI] 19.9 or less, adult; Z20.822 Contact with and (suspected) exposure to COVID-19; E78.5 Hyperlipidemia, unspecified; D63.1 Anemia in chronic kidney disease; H40.9 Unspecified glaucoma; R94.31 Abnormal electrocardiogram [ECG] [EKG]; R63.6 Underweight; Z79.899 Other long term (current) drug therapy; Z99.2 Dependence on renal dialysis
CPT/HCPCS: 36415; 36416; 51701; 70450; 71045; 80048; 80053; 81003; 81015; 83735; 83880; 84100; 84134; 84443; 84484; 85025; 90935; 93005; 93306; 93880; 96374; G0257; J0360; J1940; U0003; U0005

== ENCOUNTER 2021-10-13 12:21 | Inpatient (IN) | payer MEDICARE ==
[2021-10-13] MEDS ORDERED: Fentanyl CADD 100 ML IV SCH ×2 (12:45→16:45)
[2021-10-13 13:01] LABS: Actual Bicarbonate (HCO3a) 23.1 mEq/L (22-28); Analyzer IN Cardio ER; Base Excess (BEa) -2.7 mEq/L (-2.0 to +3.0); CO2 Tension 44.3 mmHg (35.0-45.0); Carboxyhemoglobin (COHb) 0.8 gm% (0.0-3.0); Hemoglobin (Hb) 10.7 g/dL (14.0-18.0); O2 Tension (PaO2), arterial 58.4 mmHg (> 60.0); Potassium - ABG Lab 3.22 mmol/L (3.70-5.30); pH, Arterial 7.34 (7.35-7.45)
[2021-10-13 13:02] LABS: ALV-art Gradient 314.025 mmHg (0-20); Puncture Site RRA
[2021-10-13] MEDS ORDERED: Lorazepam (BATCHED) 2 MG/ML SYR ONE ×2 (13:57→15:44)
[2021-10-13 14:11] LABS: SARS-CoV-2 NAA Rapid Test Not Detected (NotDetected)
[2021-10-13] MEDS ORDERED: Cefepime 2 GM VIAL ONE (14:34)
[2021-10-13] MEDS ORDERED: Lorazepam 2 MG/ML VIAL SLOW IVP PRN (16:03)
[2021-10-13] MEDS ORDERED: Ventilator Sedation Protocol FS PRN (16:15)
[2021-10-13] MEDS ORDERED: Sodium Chloride 0.9% 1,000 ML IV SCH (16:15)
[2021-10-13] MEDS ORDERED: Midazolam HCl 2 mg/2 ml Vial SLOW IVP PRN (16:35)
[2021-10-13] MEDS ORDERED: Morphine 4 MG/ML VIAL SLOW IVP PRN (16:45)
[2021-10-13] MEDS ORDERED: Propofol 1,000 MG/100 ML VIAL IV PRN (16:45)
[2021-10-13] MEDS ORDERED: Propofol BOLUS 1,000 MG/100 ML VIAL IV PRN (16:45)
[2021-10-13] MEDS ORDERED: Fentanyl BOLUS 250 ML IVPB PRN (16:45)
[2021-10-13] MEDS ORDERED: Piperacillin/Tazobactam 3.375 GM in Sodium Chloride 0.9% 100 ML IVPB SCH ×2 (17:00→18:00)
[2021-10-13] MEDS ORDERED: levETIRAcetam 500 MG/5 ML VIAL SLOW IVP SCH (17:00)
[2021-10-13 18:18] LABS: Lactic Acid 1.8 mmol/L (0.5-2.2)
[2021-10-13] MEDS: Dextrose 5 %-0.45 % NaCl 1,000 ML IV SCH (19:15)
[2021-10-13] MEDS: Piperacillin/Tazobactam 3.375 GM in Sodium Chloride 0.9% 100 ML IVPB SCH (19:45)
[2021-10-13] MEDS ORDERED: Piperacillin/Tazobactam 3.375 GM VIAL ONE (19:48)
[2021-10-13] MEDS: Heparin 5,000 UNITS/ML VIAL SC SCH (20:56)
[2021-10-13] MEDS ORDERED: NOREPINEPHRINE 8 MG/250 ML-D5W 250 ML ONE (21:27)
[2021-10-13] MEDS ORDERED: NOREPINEPHRINE 8 MG/250 ML-D5W 250 ML IVPB SCH (21:30)
[2021-10-14 03:57] LABS: #Lymphocytes 0.2 thou/uL (1.20-3.40); #Monocytes 0.4 thou/uL (0.11-0.59); #Neutrophils 5.4 thou/uL (1.40-6.50); %Basophils 0.2 % (0.0-1.0); %Eosinophils 0.1 % (0.0-10.0); %Lymphocytes 3.1 % (21.0-51.0); %Monocytes 6.6 % (0.0-10.0); %Neutrophils 90.1 % (42.0-75.0); Hemoglobin 9.8 g/dL (14.0-18.0); Mean Corpuscular HGB CONC 31.6 g/dL (32.0-36.0); Mean Corpuscular Hemoglobin 30.9 pg (27.0-31.0); Mean Corpuscular Volume 97.8 fL (78.0-98.0); Mean Platelet Volume 9.9 fL (7.4-10.4); Platelet Count 129 thou/uL (130-400); RBC Distribution Width 15.5 % (11.5-14.5); Red Blood Cell (RBC) Count 3.18 mill/uL (4.70-6.10)
[2021-10-14 04:18] LABS: Anion Gap 16 mmol/L (10-20); BUN (Urea Nitrogen) 43 mg/dL (8.4-25.7); Calc. Creatinine Clearance 8 mL/min (70-130); Calcium 8.7 mg/dL (7.8-10.44); Carbon Dioxide 22 mmol/L (23-31); Chloride 108 mmol/L (98-107); Estimated GFR 11; Glucose 123 mg/dL (83-110); Potassium 3.4 mmol/L (3.5-5.1); Sodium 143 mmol/L (136-145)
[2021-10-14] MEDS: Dextrose 5 %-0.45 % NaCl 1,000 ML IV SCH ×2 (06:00→15:00)
[2021-10-14 07:09] LABS: Actual Bicarbonate (HCO3a) 20.8 mEq/L (22-28); Base Excess (BEa) -1.4 mEq/L (-2.0 to +3.0); CO2 Tension 27.5 mmHg (35.0-45.0); Carboxyhemoglobin (COHb) 0.8 gm% (0.0-3.0); Hemoglobin (Hb) 11.4 g/dL (14.0-18.0); O2 Tension (PaO2), arterial 138.1 mmHg (> 60.0); Potassium - ABG Lab 3.19 mmol/L (3.70-5.30)
[2021-10-14 07:11] LABS: Puncture Site LRA
[2021-10-14 07:12] LABS: ALV-art Gradient 112.725 mmHg (0-20)
[2021-10-14] MEDS: Heparin 5,000 UNITS/ML VIAL SC SCH ×2 (08:41→20:18)
[2021-10-14] MEDS: Famotidine/PF 20 mg/2ml Vial SLOW IVP SCH (08:41)
[2021-10-14] MEDS ORDERED: Piperacillin/Tazobactam 3.375 GM VIAL ONE (09:26)
[2021-10-14] MEDS: Piperacillin/Tazobactam 3.375 GM in Sodium Chloride 0.9% 100 ML IVPB SCH ×2 (09:27→20:43)
[2021-10-14] MEDS ORDERED: levETIRAcetam 500 MG/5 ML VIAL SLOW IVP SCH ×3 (18:00→20:15)
[2021-10-15 04:25] VITALS: BMI 18.0
[2021-10-15 04:36] LABS: #Eosinphils 0.1 thou/uL (0.0-0.7); #Lymphocytes 0.2 thou/uL (1.20-3.40); #Monocytes 0.3 thou/uL (0.11-0.59); #Neutrophils 3.9 thou/uL (1.40-6.50); %Basophils 0.5 % (0.0-1.0); %Lymphocytes 5.1 % (21.0-51.0); %Monocytes 7.5 % (0.0-10.0); %Neutrophils 84.9 % (42.0-75.0); Hemoglobin 10.2 g/dL (14.0-18.0); Mean Corpuscular HGB CONC 31.4 g/dL (32.0-36.0); Mean Corpuscular Hemoglobin 30.7 pg (27.0-31.0); Mean Platelet Volume 9.7 fL (7.4-10.4); Platelet Count 132 thou/uL (130-400); RBC Distribution Width 15.2 % (11.5-14.5); Red Blood Cell (RBC) Count 3.33 mill/uL (4.70-6.10); White Blood Cell (WBC) Count 4.6 thou/uL (4.8-10.8)
[2021-10-15 04:55] LABS: Anion Gap 13 mmol/L (10-20); BUN (Urea Nitrogen) 21 mg/dL (8.4-25.7); Calc. Creatinine Clearance 14 mL/min (70-130); Calcium 8.3 mg/dL (7.8-10.44); Carbon Dioxide 27 mmol/L (23-31); Chloride 102 mmol/L (98-107); Estimated GFR 20; Glucose 126 mg/dL (83-110); Potassium 3.1 mmol/L (3.5-5.1); Sodium 139 mmol/L (136-145)
[2021-10-15 05:03] LABS: HBSAB Concentration Less than 8.00 mIU/mL; HBSAg Index 0.19 S/CO (0-0.99); Hep B Core Total Ab Non-Reactive (NonReactive); Hep B Core Total Index 0.11 S/CO (0-0.79); Hep B Surf AB Non-Reactive (NonReactive); Hep B Surf Ag Non-Reactive S/CO (NonReactive); Hep C IgG Ab Non-Reactive (NonReactive); Hep C Index 0.13 S/CO (0-0.79)
[2021-10-15 07:09] LABS: Actual Bicarbonate (HCO3a) 24.8 mEq/L (22-28); Base Excess (BEa) 1.7 mEq/L (-2.0 to +3.0); CO2 Tension 33.8 mmHg (35.0-45.0); Calcium, Ionized (arterial) 1.05 mmol/L (1.12-1.30); Carboxyhemoglobin (COHb) 1.2 gm% (0.0-3.0); Hemoglobin (Hb) 11.1 g/dL (14.0-18.0); O2 Tension (PaO2), arterial 108.1 mmHg (> 60.0); Potassium - ABG Lab 3.04 mmol/L (3.70-5.30); pH, Arterial 7.48 (7.35-7.45)
[2021-10-15 07:14] LABS: Puncture Site LRA
[2021-10-15] MEDS ORDERED: levETIRAcetam 500 MG/5 ML VIAL SLOW IVP SCH (09:00)
[2021-10-15] MEDS ORDERED: Dextrose 5 %-0.45 % NaCl 1,000 ML IV SCH (09:15)
[2021-10-15] MEDS: Dextrose 5 %-0.45 % NaCl 1,000 ML IV SCH (10:00)
[2021-10-15] MEDS: Heparin 5,000 UNITS/ML VIAL SC SCH (10:45)
[2021-10-15] MEDS: Famotidine/PF 20 mg/2ml Vial SLOW IVP SCH (10:45)
[2021-10-15] MEDS: Piperacillin/Tazobactam 3.375 GM in Sodium Chloride 0.9% 100 ML IVPB SCH (10:46)
[2021-10-15 14:02] VITALS: BP 89/57
[2021-10-15] MEDS ORDERED: Sodium Bicarbonate Tab 325 MG TAB PER TUBE PRN (17:00)
[2021-10-15] MEDS ORDERED: Pancrelipase DR 12,000 1 CAP FS PRN (17:00)
[2021-10-15 17:01] VITALS: TEMP 98.2
[2021-10-15] MEDS: Morphine 4 MG/ML VIAL SLOW IVP PRN ×2 (18:25→19:51)
[2021-10-15] MEDS ORDERED: Lorazepam 2 MG/ML VIAL SLOW IVP PRN (18:50)
== END 2021-10-15 20:07 | disposition expired | DRG 208 ==
LOC: ERS 12:21 → CCU 16:00
PROVIDERS: ADMIT Internal Medicine; ATTEND Hospitalist
PROC: 5A1945Z Respiratory Ventilation, 24-96 Consecutive Hours (ICD-10-PCS; principal; 2021-10-13)
PROC: 3E043XZ Introduction of Vasopressor into Central Vein, Percutaneous Approach (ICD-10-PCS; 2021-10-13)
PROC: 0B9F8ZZ Drainage of Right Lower Lung Lobe, Via Natural or Artificial Opening Endoscopic (ICD-10-PCS; 2021-10-13)
PROC: 0D9670Z Drainage of Stomach with Drainage Device, Via Natural or Artificial Opening (ICD-10-PCS; 2021-10-13)
PROC: 5A12012 Performance of Cardiac Output, Single, Manual (ICD-10-PCS; 2021-10-13)
PROC: 5A1D70Z Performance of Urinary Filtration, Intermittent, Less than 6 Hours Per Day (ICD-10-PCS; 2021-10-14)
DX: J69.0 Pneumonitis due to inhalation of food and vomit (principal); N18.6 End stage renal disease; J96.01 Acute respiratory failure with hypoxia; R40.20 Unspecified coma; I12.0 Hypertensive chronic kidney disease with stage 5 chronic kidney disease or end stage renal disease; I47.2 Ventricular tachycardia; G93.1 Anoxic brain damage, not elsewhere classified; N13.30 Unspecified hydronephrosis; Z66 Do not resuscitate; Z20.822 Contact with and (suspected) exposure to COVID-19; E78.5 Hyperlipidemia, unspecified; H54.7 Unspecified visual loss; I46.9 Cardiac arrest, cause unspecified; R56.9 Unspecified convulsions; R00.1 Bradycardia, unspecified; D63.1 Anemia in chronic kidney disease; F17.210 Nicotine dependence, cigarettes, uncomplicated; H40.9 Unspecified glaucoma; G93.89 Other specified disorders of brain; R29.3 Abnormal posture; Z99.2 Dependence on renal dialysis; Z78.1 Physical restraint status; Z79.899 Other long term (current) drug therapy; J44.9 Chronic obstructive pulmonary disease, unspecified
CPT/HCPCS: 31624; 36416; 36600; 70450; 71045; 80048; 82805; 83605; 85025; 86704; 87040; 87070; 87077; 87186; 87205; 87340; 93005; 94002; 94003; 95712; 95819; 95957; 96365; 96366; 96375; J0692; J1644; J1953; J1956; J2060; J2270; J2543; J3010; J3490; J7042; S0028; U0002